=== PATIENT | male | born 1980 | race Caucasian/White ===

== ENCOUNTER 2016-08-27 10:11 | Emergency (ER) | payer MEDICARE, MEDICAID ==
--- NOTE | 2016-08-27 10:30 | ER Document Report ---
ED Medical Screen (RME) - General Chief Complaint: Headache Stated Complaint: BLOOD SUGAR PROBLEMS Time Seen by Provider: 08/27/16 10:19 Notes: The patient is a 36-year-old male, past medical history deafness, MR, seizures, DM, presents with his roommate after he was noticed to be pale and shaking. He is also having left groin pain. His sugar at home was 80. His roommate said that she will not interpret for him and that the patient cannot use Neisha. Unable to obtain any additional information. PE: pale skin, legs shaking, tachycardic I have greeted and performed a rapid initial assessment of this patient. A comprehensive ED assessment and evaluation of the patient, analysis of test results and completion of the medical decision making process will be conducted by additional ED providers. TRAVEL OUTSIDE OF THE [place] IN LAST 30 DAYS: No - Related Data Allergies/Adverse Reactions: ceftriaxone sodium [From Rocephin] Allergy (Unknown, Verified 08/27/16 10:18) haloperidol [From Haldol] Allergy (Verified 08/27/16 10:18) Past Medical History - Past Medical History Cardiac Medical History: Denies: Hx Coronary Artery Disease, Hx Heart Attack, Hx Hypertension Pulmonary Medical History: Denies: Hx Asthma, Hx Bronchitis, Hx COPD, Hx Pneumonia, Hx Tuberculosis Neurological Medical History: Denies: Hx Cerebrovascular Accident, Hx Seizures Renal/ Medical History: Denies: Hx Peritoneal Dialysis GI Medical History: Reports: Hx Gastroesophageal Reflux Disease Musculoskeltal Medical History: Reports Hx Arthritis - BEING EVALUATED Psychiatric Medical History: Reports: Hx Anxiety Past Surgical History: Denies: Hx Pacemaker - Immunizations Hx Diphtheria, Pertussis, Tetanus Vaccination: Yes Physical Exam - Vital signs Vitals: Temp Pulse Resp BP Pulse Ox 98.9 F 51 L 98 H 143/84 H 89 L 08/27/16 10:08/27/16 10:08/27/16 10:08/27/16 10:08/27/16 10:17 Course - Vital Signs Vital signs: Temp Pulse Resp BP Pulse Ox 98.9 F 51 L 98 H 143/84 H 89 L 08/27/16 10:08/27/16 10:08/27/16 10:08/27/16 10:08/27/16 10:17
[2016-08-27 10:46] LABS: ABSOLUTE LYMPHOCYTES (AUTO) 1.1 10^3/uL (0.5-4.7); ABSOLUTE MONOCYTES (AUTO) 0.2 10^3/uL (0.1-1.4); BASOPHILS % (AUTO) 0.4 % (0-2); EOSINOPHILS % (AUTO) 0.4 % (0-6); HEMATOCRIT 43.6 % (37.9-51.0); HGB HCT DIFFERENCE -1.6; LYMPHOCYTES % (AUTO) 12.6 % (13-45); MEAN CORPUSCULAR HEMOGLOBIN 30.8 pg (27.0-33.4); MEAN CORPUSCULAR VOLUME 96 fl (80-97); MONOCYTES % (AUTO) 2.9 % (3-13); RED BLOOD COUNT 4.53 10^6/uL (4.35-5.55); RED CELL DISTRIBUTION WIDTH 13.2 % (11.5-14.0); SEGMENTED NEUTROPHILS % (AUTO) 83.7 % (42-78); WHITE BLOOD COUNT 8.4 10^3/uL (4.0-10.5)
[2016-08-27 11:05] LABS: ALANINE AMINOTRANSFERASE 52 U/L (21-72); ALBUMIN 4.7 g/dL (3.5-5.0); ALKALINE PHOSPHATASE 49 U/L (38-126); ANION GAP 13 (5-19); ASPARTATE AMINO TRANSFERASE 37 U/L (17-59); BILIRUBIN,DIRECT 0.2 mg/dL (0.0-0.4); BILIRUBIN,TOTAL 0.4 mg/dL (0.2-1.3); BLOOD UREA NITROGEN 19 mg/dL (7-20); CALCIUM 9.6 mg/dL (8.4-10.2); CARBON DIOXIDE 26 mmol/L (22-30); CHLORIDE 106 mmol/L (98-107); CREATINE KINASE 67 U/L (55-170); CREATININE RESULT 0.72 mg/dL (0.52-1.25); GLUCOSE 102 mg/dL (75-110); LIPASE 113.8 U/L (23-300); POTASSIUM 4.4 mmol/L (3.6-5.0); SODIUM 144.6 mmol/L (137-145); TOTAL PROTEIN 8.1 g/dL (6.3-8.2)
[2016-08-27] MEDS ORDERED: NORMAL SALINE 1000 ML 1,000 ML IV PRN (11:05)
--- NOTE | 2016-08-27 11:12 | RADIOLOGY REPORT (SQ) ---
EXAM DESCRIPTION: CHEST PA/LAT COMPLETED DATE/TIME: 08/27/2016 11:03 am REASON FOR STUDY: SOB COMPARISON: 06/24/2014 EXAM PARAMETERS: NUMBER OF VIEWS: two views TECHNIQUE: Digital Frontal and Lateral radiographic views of the chest acquired. RADIATION DOSE: NA LIMITATIONS: none FINDINGS: LUNGS AND PLEURA: No opacities, masses or pneumothorax. No pleural effusion. MEDIASTINUM AND HILAR STRUCTURES: No masses or contour abnormalities. HEART AND VASCULAR STRUCTURES: Heart normal size. No evidence for failure. BONES: Stable scoliosis. HARDWARE: None in the chest. OTHER: No other significant finding. IMPRESSION: NO SIGNIFICANT RADIOGRAPHIC FINDING IN THE CHEST. TECHNICAL DOCUMENTATION: JOB ID: [id number] [employer]- All Rights Reserved
--- NOTE | 2016-08-27 11:23 | ER Document Report ---
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 family notes no fevers or chills, nausea or vomiting TRAVEL OUTSIDE OF THE [place] IN LAST 30 DAYS: No - HPI Onset: Yesterday Onset/Duration: Sudden Quality of pain: Achy Severity: Mild Pain Level: 1 Associated symptoms: None Exacerbated by: Denies Relieved by: Denies Similar symptoms previously: No Recently seen / treated by doctor: No - Related Data Allergies/Adverse Reactions: ceftriaxone sodium [From Rocephin] Allergy (Unknown, Verified 08/27/16 10:18) haloperidol [From Haldol] Allergy (Verified 08/27/16 10:18) Past Medical History - Social History Smoking Status: Never Smoker Cigarette use (# per day): No Chew tobacco use (# tins/day): No Smoking Education Provided: No Family History: Reviewed & Not Pertinent Patient has suicidal ideation: No Patient has homicidal ideation: No - Past Medical History Cardiac Medical History: Denies: Hx Coronary Artery Disease, Hx Heart Attack, Hx Hypertension Pulmonary Medical History: Denies: Hx Asthma, Hx Bronchitis, Hx COPD, Hx Pneumonia, Hx Tuberculosis Neurological Medical History: Denies: Hx Cerebrovascular Accident, Hx Seizures Renal/ Medical History: Denies: Hx Peritoneal Dialysis GI Medical History: Reports: Hx Gastroesophageal Reflux Disease Musculoskeltal Medical History: Reports Hx Arthritis - BEING EVALUATED Psychiatric Medical History: Reports: Hx Anxiety Past Surgical History: Denies: Hx Pacemaker - Immunizations Hx Diphtheria, Pertussis, Tetanus Vaccination: Yes Review of Systems - Review of Systems Notes: REVIEW OF SYSTEMS: CONSTITUTIONAL : Denies fever, chills, or sweats. Denies recent illness. EENT: Denies eye, ear, throat, or mouth pain or symptoms. Denies nasal or sinus congestion or discharge. Denies throat, tongue, or mouth swelling or difficulty swallowing. CARDIOVASCULAR: Denies chest pain. Denies palpitations or racing or irregular heart beat. Denies ankle edema. RESPIRATORY: Denies cough, cold, or chest congestion. Denies shortness of breath, difficulty breathing, or wheezing. GASTROINTESTINAL: Right flank pain GENITOURINARY: Denies difficulty urinating, painful urination, burning, frequency, blood in urine, or discharge. MUSCULOSKELETAL: Left thigh pain SKIN: Denies rash, lesions or sores. HEMATOLOGIC : Denies easy bruising or bleeding. LYMPHATIC: Denies swollen, enlarged glands. NEUROLOGICAL: Denies confusion or altered mental status. Denies passing out or loss of consciousness. Denies dizziness or lightheadedness. Denies headache. Denies weakness or paralysis or loss of use of either side. Denies problems with gait or speech. Denies sensory loss, numbness, or tingling. Denies seizures. PSYCHIATRIC: Denies anxiety or stress. Denies depression, suicidal ideation, or homicidal ideation. ALL OTHER SYSTEMS REVIEWED AND NEGATIVE. Dictation was performed using [employer] voice recognition software PHYSICAL EXAMINATION: GENERAL: pale HEAD: Atraumatic, normocephalic. EYES: Pupils equal round and reactive to light, extraocular movements intact, sclera anicteric, conjunctiva are normal. ENT: Nares patent, oropharynx clear without exudates. Moist mucous membranes. NECK: Normal range of motion, supple without lymphadenopathy LUNGS: Breath sounds clear to auscultation bilaterally and equal. No wheezes rales or rhonchi. HEART: tachycardic ABDOMEN: Soft, nontender, nondistended abdomen. No guarding, no rebound. No masses appreciated. Musculoskeletal: Normal range of motion, no pitting or edema. No cyanosis. NEUROLOGICAL: baseline PSYCH: Normal mood, normal affect. SKIN: Warm, Dry, normal turgor, no rashes or lesions noted. Physical Exam - Vital signs Vitals: Temp Pulse Resp BP Pulse Ox 98.9 F 127 H 20 143/84 H 98 08/27/16 10:17 08/27/16 10:17 08/27/16 10:17 08/27/16 10:17 08/27/16 10:17 Course - Re-evaluation Re-evalutation: 08/27/16 13:40 Physical examination lab work imaging no significant abnormality patient's heart rate has gone down from 130s-117 at rest, I believe the patient's tachycardia may be secondary to pain however Doppler CT imaging noted no abnormality patient does not have fever no white count. I did speak with the hospitalist he did not believe he meets admission criteria, I spoke in length with caregiver as well as patient about very strict return precautions and they state they understand and will return since at this time I do not find any life- threatening issues. Patient is chest pain-free has no shortness breath difficulty breathing no DVT no intra-abdominal source appendix is not visualized but he is nontender in the right lower quadrant After performing a Medical Screening Examination, I estimate there is LOW risk for ACUTE APPENDICITIS, BOWEL OBSTRUCTION, ACUTE CHOLECYSTITIS, PERFORATED DIVERTICULITIS, INCARCERATED HERNIA, PANCREATITIS, or PERFORATED ULCER, thus I consider the discharge disposition reasonable. Also, there is no evidence or peritonitis, sepsis, or toxicity. I have reevaluated this patient multiple times and no significant life threatening changes are noted. The patient and the caregiver and I have discussed the diagnosis and risks, and we agree with discharging home with close follow-up with the understanding that symptoms and presentations can change. We also discussed returning to the Emergency Department immediately if new or worsening symptoms occur. We have discussed the symptoms which are most concerning (e.g., bloody stool, fever, changing or worsening pain, intractable vomiting - standard verbal up date) that necessitate immediate return. - Vital Signs Vital signs: Temp Pulse Resp BP Pulse Ox 98.9 F 127 H 20 138/80 H 95 08/27/16 10:17 08/27/16 10:17 08/27/16 13:01 08/27/16 13:01 08/27/16 13:01 - Laboratory Result Diagrams: 08/27/16 10:20 08/27/16 10:20 Laboratory results interpreted by me: 08/27/16 10:20 Plt Count 138 L Seg Neutrophils % 83.7 H Lymphocytes % 12.6 L Monocytes % 2.9 L - Diagnostic Test Radiology reviewed: Image reviewed, Reports reviewed - EKG Interpretation by [facility] EKG shows normal: Sinus rhythm, Hammond, Intervals, QRS Complexes Discharge - Discharge Clinical Impression: Flank pain, Left thigh pain, Tachycardia Condition: Stable Disposition: HOME, SELF-CARE Instructions: Sinus Tachycardia ([facility]) Additional Instructions: There is no obvious source of infection at this time, please return immediately if symptoms worsen, if there is any fever, if there is any redness, chest pain, shortness of breath, or any other concerns Referrals: JOHN GOLDSMITH MD [Primary Care Provider] - Follow up tomorrow
--- NOTE | 2016-08-27 11:24 | EKG REPORT ---
SEVERITY:- ABNORMAL ECG - SINUS TACHYCARDIA LAD, CONSIDER LEFT ANTERIOR FASCICULAR BLOCK BORDERLINE T ABNORMALITIES, LATERAL LEADS : Confirmed by: Diane Pritchard 27-Aug-2016 11:24:04
[2016-08-27] MEDS ORDERED: MORPHINE SULFATE 10 MG/ML INJ IV ONE (11:25)
--- NOTE | 2016-08-27 12:19 | RADIOLOGY REPORT (SQ) ---
EXAM DESCRIPTION: CT ABD/PELVIS WITH IV ONLY COMPLETED DATE/TIME: 08/27/2016 11:53 am REASON FOR STUDY: right flank pain COMPARISON: None. TECHNIQUE: CT scan of the abdomen and pelvis performed using helical scanning technique with dynamic intravenous contrast injection. No oral contrast. Images reviewed with lung, soft tissue, and bone windows. Reconstructed coronal and sagittal MPR images reviewed. Delayed images for evaluation of the urinary system also acquired. All images stored on PACS. All CT scanners at this facility use dose modulation, iterative reconstruction, and/or weight based d osing when appropriate to reduce radiation dose to as low as reasonably achievable (ALARA). [facility]: Dose Right [facility]: CareDose [facility]: Dose Right [facility]: Teradose 4D [facility]: [employer] CONTRAST TYPE AND DOSE: contrast/concentration: Isovue 370.00 mg/ml; Total Contrast Delivered: 74.0 ml; Total Saline Delivered: 55.0 ml RENAL FUNCTION: GFR > 60. RADIATION DOSE: Up-to-date CT equipment and radiation dose reduction techniques were employed. CTDIv ol: 6.3 - 9.1 mGy. DLP: 784 mGy-cm.. LIMITATIONS: None. FINDINGS: LOWER CHEST: No significant findings. No nodules or infiltrates. LIVER: Normal size. No masses. No dilated ducts. SPLEEN: Normal size. No focal lesions. PANCREAS: No masses. No significant calcifications. No adjacent inflammation or peripancreatic fluid collections. Pancreatic duct not dilated. GALLBLADDER: Mildly distended. No stones. ADRENAL GLANDS: No significant masses or asymmetry. RIGHT KIDNEY AND URETER: No solid masses. No significant calcifications. No hydronephrosis or hyd roureter. LEFT KIDNEY AND URETER: No solid masses. No significant calcifications. No hydronephrosis or hydr oureter. AORTA AND VESSELS: No aneurysm. No dissection. Renal arteries, SMA, celiac without stenosis. RETROPERITONEUM: No retroperitoneal adenopathy, hemorrhage or masses. BOWEL AND PERITONEAL CAVITY: No masses or inflammatory changes. No free fluid or peritoneal masses. APPENDIX: Not visualized. PELVIS: No mass or free fluid. Normal bladder. ABDOMINAL WALL: No masses. No hernias. BONES: No significant or acute findings. OTHER: No other significant finding. IMPRESSION: NO SIGNIFICANT OR ACUTE FINDING IN THE ABDOMEN OR PELVIS ON CT SCAN WITH IV CONTRAST. TECHNICAL DOCUMENTATION: JOB ID: [id number] Quality ID # [id number]: Final reports with documentation of one or more dose reduction techniques (e.g., Au tomated exposure control, adjustment of the mA and/or kV according to patient size, use of iterative reconstruction technique) 2010 [employer]- All Rights Reserved
[2016-08-27 13:12] VITALS: BP 138/80
[2016-08-27 13:14] LABS: APPEARANCE,URINE CLEAR; BILIRUBIN,URINE NEGATIVE (NEGATIVE); GLUCOSE, URINE NEGATIVE (NEGATIVE); KETONES,URINE NEGATIVE (NEGATIVE); LEUKOCYTE ESTERASE,URINE NEGATIVE (NEGATIVE); NITRITE,URINE NEGATIVE (NEGATIVE); PROTEIN,URINE NEGATIVE (NEGATIVE); URINE SPECIFIC GRAVITY 1.019; UROBILINOGEN,URINE NEGATIVE mg/dL (<2.0)
--- NOTE | 2016-08-27 13:50 | RADIOLOGY REPORT (SQ) ---
EXAM DESCRIPTION: VENOUS UNILATERAL LOWER COMPLETED DATE/TIME: 08/27/2016 1:28 pm REASON FOR STUDY: left thighpain COMPARISON: None. TECHNIQUE: Dynamic and static evangelista scale and color images acquired of the left leg venous system. Se lected spectral images acquired with additional compression and augmentation maneuvers. The contralat eral common femoral vein and saphenofemoral junction were also imaged. Images stored on PACS. LIMITATIONS: None. FINDINGS: COMMON FEMORAL: Normal phasicity, compression and augmentation. No visualized echogenic ma terial on evangelista scale. No defects on color images. FEMORAL: Normal compression and augmentation. No visualized echogenic material on evangelista scale. No defe cts on color images. POPLITEAL: Normal compression, augmentation. No visualized echogenic material on evangelista scale. No defec ts on color images. CALF VESSELS: Normal compression, augmentation. No visualized echogenic material on evangelista scale. No de fects on color images. GSV and SSV: Normal compression, augmentation. No visualized echogenic material on evangelista scale. No def ects on color images. ANY DEEP VENOUS INSUFFICIENCY: Not evaluated. ANY EVIDENCE OF POPLITEAL CYST: No. OTHER: No other significant finding. CONTRALATERAL COMMON FEMORAL VEIN AND SAPHENOFEMORAL JUNCTION: Normal phasicity, compression and augmentation. No visualized echogenic material on evangelista scale. No de fects on color images. IMPRESSION: NO EVIDENCE DVT OR SVT IN THE LEFT LEG. COMMENT: This report was called to ISIS JASMINE DO at13:44 on 08/27/2016. TECHNICAL DOCUMENTATION: JOB ID: [id number]- All Rights Reserved
[2016-08-27 14:39] LABS: FREE T3 3.36 pg/mL (2.77-5.27)
--- NOTE | 2016-08-27 15:05 | RADIOLOGY REPORT (SQ) ---
EXAM DESCRIPTION: CTA CHEST COMPLETED DATE/TIME: 08/27/2016 2:51 pm REASON FOR STUDY: sob chest COMPARISON: Chest radiograph TECHNIQUE: CT scan of the chest performed using helical scanning technique with dynamic intravenous contrast injection. Images reviewed with lung, soft tissue and bone windows. Reconstructed coronal and sagittal MPR images reviewed. Additional 3 dimensional post-processing performed to develop Maximal Intensity Projection images ([place] P). All images stored on PACS. All CT scanners at this facility use dose modulation, iterative reconstruction, and/or weight based d osing when appropriate to reduce radiation dose to as low as reasonably achievable (ALARA). [facility]: Dose Right [facility]: CareDose [facility]: Dose Right [facility]: Teradose 4D [facility]: [employer] CONTRAST TYPE AND DOSE: contrast/concentration: Isovue 370.00 mg/ml; Total Contrast Delivered: 65.0 ml; Total Saline Delivered: 106.0 ml RENAL FUNCTION: GFR > 60. RADIATION DOSE: Up-to-date CT equipment and radiation dose reduction techniques were employed. CTDIv ol: 14.9 - 19.8 mGy. DLP: 558 mGy-cm. . LIMITATIONS: None. FINDINGS: LUNGS AND PLEURA: No masses, infiltrates, pneumothorax. No pleural effusions, calcificati ons. AORTA AND GREAT VESSELS: No aneurysm or dissection. HEART: No pericardial effusion. PULMONARY ARTERIES: No emboli visualized in the main pulmonary arteries or the segmental branches. HILAR AND MEDIASTINAL STRUCTURES: No identified masses or abnormal nodes. HARDWARE: None in the chest. UPPER ABDOMEN: No significant findings. Limited exam. THYROID AND OTHER SOFT TISSUES: No masses. No adenopathy. BONES: No acute or significant finding. 3D MIPS: Confirm above findings. OTHER: No other significant finding. IMPRESSION: NORMAL CTA OF THE CHEST. NO PULMONARY EMBOLI. TECHNICAL DOCUMENTATION: JOB ID: [id number] Quality ID # [id number]: Final reports with documentation of one or more dose reduction techniques (e.g., Au tomated exposure control, adjustment of the mA and/or kV according to patient size, use of iterative reconstruction technique) 2010 [employer]- All Rights Reserved
== END 2016-08-27 15:20 | disposition home or self-care (01) ==
LOC: ER 10:11
DX: R10.9 Unspecified abdominal pain (principal); R00.0 Tachycardia, unspecified; M79.652 Pain in left thigh; F80.2 Mixed receptive-expressive language disorder; F79 Unspecified intellectual disabilities; Z88.1 Allergy status to other antibiotic agents; Z88.8 Allergy status to other drugs, medicaments and biological substances
CPT/HCPCS: 93005; 99285; 96374; 36415; 84439; 82962; 82550; 83690; 84443; 85025; 80053; 81001; 84484; 84481; 83605; 93971; 71020; 71275; 74177; 93010; J2270; J7030

== ENCOUNTER 2016-08-28 15:18 | Observation (INO) | payer MEDICARE, MEDICAID ==
--- NOTE | 2016-08-28 16:26 | ER Document Report ---
ED Medical Screen (RME) - General Chief Complaint: Leg Pain Stated Complaint: LEFT LEG PAIN Time Seen by Provider: 08/28/16 16:18 Notes: Patient is a 36-year-old male, deaf, presents with 1 day of left lower leg redness and lower abdominal pain. He was seen in the emergency room yesterday and was noticed to be tachycardic. He had an ultrasound of his left lower leg which did not reveal a DVT, CTA which did not show a pulmonary embolism and blood work was unremarkable. He is not tachycardic today. When he woke up this morning, he noticed the redness. His roommate is here and serves as full time staff interpreter. PE: Mild erythema over left lower leg, B/L abdominal tenderness, good bowel sounds I have greeted and performed a rapid initial assessment of this patient. A comprehensive ED assessment and evaluation of the patient, analysis of test results and completion of the medical decision making process will be conducted by additional ED providers. TRAVEL OUTSIDE OF THE [place] IN LAST 30 DAYS: No - Related Data Allergies/Adverse Reactions: ceftriaxone sodium [From Rocephin] Allergy (Unknown, Verified 08/28/16 15:32) haloperidol [From Haldol] Allergy (Verified 08/28/16 15:32) Past Medical History - Past Medical History Cardiac Medical History: Denies: Hx Coronary Artery Disease, Hx Heart Attack, Hx Hypertension Pulmonary Medical History: Denies: Hx Asthma, Hx Bronchitis, Hx COPD, Hx Pneumonia, Hx Tuberculosis Neurological Medical History: Denies: Hx Cerebrovascular Accident, Hx Seizures Renal/ Medical History: Denies: Hx Peritoneal Dialysis GI Medical History: Reports: Hx Gastroesophageal Reflux Disease Musculoskeltal Medical History: Reports Hx Arthritis - BEING EVALUATED Psychiatric Medical History: Reports: Hx Anxiety Past Surgical History: Denies: Hx Pacemaker - Immunizations Hx Diphtheria, Pertussis, Tetanus Vaccination: Yes Physical Exam - Vital signs Vitals: Temp Pulse Resp BP Pulse Ox 97.5 F 89 20 108/51 L 100 08/28/16 15:32 08/28/16 15:32 08/28/16 15:32 08/28/16 15:32 08/28/16 15:32 Course - Vital Signs Vital signs: Temp Pulse Resp BP Pulse Ox 97.5 F 89 20 108/51 L 100 08/28/16 15:32 08/28/16 15:32 08/28/16 15:32 08/28/16 15:32 08/28/16 15:32
[2016-08-28 17:13] LABS: ABSOLUTE LYMPHOCYTES (AUTO) 1.4 10^3/uL (0.5-4.7); ABSOLUTE NEUT (AUTO) 11.5 10^3/uL (1.7-8.2); BASOPHILS % (AUTO) 0.2 % (0-2); EOSINOPHILS % (AUTO) 0.2 % (0-6); HEMATOCRIT 40.7 % (37.9-51.0); HEMOGLOBIN 13.3 g/dL (13.5-17.0); HGB HCT DIFFERENCE -0.8; LYMPHOCYTES % (AUTO) 9.7 % (13-45); MEAN CORPUSCULAR HEMOGLOBIN 30.8 pg (27.0-33.4); MEAN CORPUSCULAR HGB CONC 32.7 g/dL (32.0-36.0); MEAN CORPUSCULAR VOLUME 94 fl (80-97); MONOCYTES % (AUTO) 7.4 % (3-13); RED BLOOD COUNT 4.32 10^6/uL (4.35-5.55); RED CELL DISTRIBUTION WIDTH 13.5 % (11.5-14.0); SEGMENTED NEUTROPHILS % (AUTO) 82.5 % (42-78); WHITE BLOOD COUNT 13.9 10^3/uL (4.0-10.5)
[2016-08-28 17:14] LABS: ALANINE AMINOTRANSFERASE 45 U/L (21-72); ALBUMIN 4.3 g/dL (3.5-5.0); ALKALINE PHOSPHATASE 44 U/L (38-126); ANION GAP 10 (5-19); ASPARTATE AMINO TRANSFERASE 37 U/L (17-59); BILIRUBIN,DIRECT 0.2 mg/dL (0.0-0.4); BILIRUBIN,TOTAL 0.4 mg/dL (0.2-1.3); BLOOD UREA NITROGEN 13 mg/dL (7-20); CALCIUM 9.9 mg/dL (8.4-10.2); CARBON DIOXIDE 27 mmol/L (22-30); CHLORIDE 103 mmol/L (98-107); CREATINE KINASE 41 U/L (55-170); CREATININE RESULT 0.65 mg/dL (0.52-1.25); GLUCOSE 82 mg/dL (75-110); LIPASE 60.9 U/L (23-300); POTASSIUM 4.2 mmol/L (3.6-5.0); SODIUM 140.3 mmol/L (137-145); TOTAL PROTEIN 7.7 g/dL (6.3-8.2)
[2016-08-28] MEDS ORDERED: CLINDAMYCIN 600 MG/D5W RTU 50 ML IV ONE (17:24)
--- NOTE | 2016-08-28 17:24 | ER Document Report ---
ED Extremity Problem, Lower - General Mode of Arrival: Ambulatory Information source: Patient TRAVEL OUTSIDE OF THE [place] IN LAST 30 DAYS: No <MARTHA WU - Last Filed: 08/28/16 19:31> <REYNOLD STEWART - Last Filed: 08/28/16 19:37> - General Chief Complaint: Leg Pain Stated Complaint: LEFT LEG PAIN Time Seen by Provider: 08/28/16 16:18 Notes: 36 yo deaf male c/o red area to left leg today with pain and left sided abdominal pain, non diabetic. Seen in ER yesterday for low back pain, tachycardia. CT chest and abdomen, venous doppler ultrasound negative. No source of infection found. Woke up today c/o left medial ankle pain, red, and warm area. Spider bite 10 years ago to distal anterior left lower leg. No fever , nausea or vomiting. No headache. No hx MRSA. No chest pain or SOB. Still has some low back pain. Hx of tinea pedis, tenactin used. (MARTHA WU) - Related Data Allergies/Adverse Reactions: ceftriaxone sodium [From Rocephin] Allergy (Unknown, Verified 08/28/16 15:32) haloperidol [From Haldol] Allergy (Verified 08/28/16 15:32) Home Medications: Current Home Medications B Infantis/B Ani/B Charlie/B Bifid [Ra Probiotic Digestive Care] 1 tab PO Q12 [History] Clomipramine HCl [Anafranil 25 mg Capsule] 25 mg PO DAILY 08/28/16 [History] Clonidine HCl [Catapres 0.1 mg Tablet] 0.1 mg PO Q12 08/28/16 [History] Diazoxide [Proglycem 50 mg/ml Susp] 0.75 ml PO Q12 08/28/16 [History] Divalproex Sodium [Depakote ER 500 mg Tab.sr] 1,000 mg PO QHS 08/28/16 [History] Divalproex Sodium [Depakote ER 500 mg Tab.sr] 500 mg PO DAILY 08/28/16 [History] Hydrocodone/Acetaminophen [[place] 5-325 mg Tablet] 1 tab PO Q6HP PRN 08/28/16 [ History] Heath Carbonate [Heath Carbonate ER] 450 mg PO Q12 08/28/16 [History] Quetiapine Fumarate [Seroquel] 800 mg PO QHS 08/28/16 [History] Past Medical History - General Information source: 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 - Social History Smoking Status: Never Smoker Frequency of alcohol use: None Drug Abuse: None Lives with: Friend Family History: Reviewed & Not Pertinent Patient has suicidal ideation: No Patient has homicidal ideation: No Renal/ Medical History: Denies: Hx Peritoneal Dialysis GI Medical History: Reports: Hx Gastroesophageal Reflux Disease Musculoskeltal Medical History: Reports Hx Arthritis - BEING EVALUATED Psychiatric Medical History: Reports: Hx Anxiety Surgical Hx: Negative Past Surgical History: Denies: Hx Pacemaker - Immunizations Hx Diphtheria, Pertussis, Tetanus Vaccination: Yes <MARTHA WU - Last Filed: 08/28/16 19:31> Review of Systems - Review of Systems Constitutional: No symptoms reported EENT: No symptoms reported Cardiovascular: No symptoms reported Respiratory: No symptoms reported Gastrointestinal: No symptoms reported Genitourinary: No symptoms reported Male Genitourinary: No symptoms reported Musculoskeletal: See HPI Skin: No symptoms reported Hematologic/Lymphatic: No symptoms reported Neurological/Psychological: No symptoms reported <MARTHA WU - Last Filed: 08/28/16 19:31> Course - Laboratory Result Diagrams: 08/28/16 16:45 08/28/16 16:45 <MARTHA WU - Last Filed: 08/28/16 19:31> - Laboratory Result Diagrams: 08/28/16 16:45 08/28/16 16:45 <REYNOLD STEWART - Last Filed: 08/28/16 19:37> - Re-evaluation Re-evalutation: 08/28/16 18:[address] Stewart who examined the pt. states if the patient's mother is comfortable with the patient going to her house tonight with close follow-up, he can go home with oral antibiotics clindamycin 300 mg 3 times a day. I spoke with mother over the phone who comfortable monitoring him tonight because she will not have a signing person and he does not tell her when things get worse. So I will call Dr. Hendrickson for admission his PCP is Medhat Goldsmith. 08/28/16 19:31 Dr. Hendrickson will admit to telemetry observation, and he requests that the caregiver does not give him any home medications until he sees the patient. ( MARTHA WU) 08/28/16 19:35 I did personally seen and examined this patient in conjunction with Martha Wu the nurse practitioner, patient is right on the border of requiring admission versus being able to be discharged to home. His infection did progress quite rapidly and overnight he developed lymphangitic streaking all the way to his groin, after seeing and examining this patient and confirming the lymphangitic streaking going to the level of his left inguinal fold with associated lymphadenopathy I discussed with the patient who stated he was fairly resistant to be admitted that if it was acceptable to his caregiver I would be willing to do a trial of outpatient antibiotics with initial IV antibiotics here, his caregiver is concerned that he will not be honest if he is getting worse or developing fevers, given the unreliability of the patient and the caregiver patient will be admitted for IV antibiotics for this rapidly worsening cellulitis (REYNOLD STEWART) - Vital Signs Vital signs: Temp Pulse Resp BP Pulse Ox 97.5 F 89 21 H 104/90 H 97 08/28/16 15:32 08/28/16 15:32 08/28/16 19:01 08/28/16 19:01 08/28/16 19:01 - Laboratory Laboratory results interpreted by me: 08/28/16 08/28/16 08/28/16 16:45 16:45 16:45 WBC 13.9 H RBC 4.32 L Hgb 13.3 L Plt Count 132 L Seg Neutrophils % 82.5 H Lymphocytes % 9.7 L Absolute Neutrophils 11.5 H Lactic Acid Creatine Kinase 41 L Urine Ascorbic Acid 40 H 08/28/16 18:36 WBC RBC Hgb Plt Count Seg Neutrophils % Lymphocytes % Absolute Neutrophils Lactic Acid 2.3 H Creatine Kinase Urine Ascorbic Acid Discharge - Discharge Admitting Provider: Hospitalist Unit Admitted: Telemetry <MARTHA WU - Last Filed: 08/28/16 19:31> <REYNOLD STEWART - Last Filed: 08/28/16 19:37> - Discharge Clinical Impression: Left leg cellulitis, left leg lyphangitis Tinea pedis Qualifiers: Laterality: left Qualified Code(s): B35.3 - Tinea pedis Leukocytosis Qualifiers: Leukocytosis type: other Qualified Code(s): D72.828 - Other elevated white blood cell count Condition: Good Disposition: ADMITTED OBSERVATION Referrals: JOHN GOLDSMITH MD [Primary Care Provider] - Follow up as needed
[2016-08-28] MEDS ORDERED: NYSTATIN OINTMENT 15 GM TUBE TP ONE (17:27)
--- NOTE | 2016-08-28 17:58 | RADIOLOGY REPORT (SQ) ---
EXAM DESCRIPTION: ACUTE ABDOMEN SERIES COMPLETED DATE/TIME: 08/28/2016 5:47 pm REASON FOR STUDY: ruq abd tenderness COMPARISON: None. NUMBER OF VIEWS: Three views. TECHNIQUE: Frontal chest, supine abdomen and upright abdomen radiographic images acquired. LIMITATIONS: None. FINDINGS: CHEST: Lungs clear of infiltrates. FREE AIR: None. No abnormal gas collections. BOWEL GAS PATTERN: Nonobstructive pattern. No dilated loops or air fluid levels. CALCIFICATIONS: No suspicious calcifications. HARDWARE: None in the abdomen. SOFT TISSUES: No gross mass or suggestion of organomegaly. BONES: Levoscoliosis at the thoracolumbar junction. OTHER: No other significant finding. IMPRESSION: NO RADIOGRAPHIC EVIDENCE FOR ACUTE ABDOMINAL DISEASE. TECHNICAL DOCUMENTATION: JOB ID: [id number] [employer]- All Rights Reserved
[2016-08-28 18:20] LABS: AMORPHOUS SEDIMENT,URINE TRACE /HPF; APPEARANCE,URINE CLOUDY; BILIRUBIN,URINE NEGATIVE (NEGATIVE); GLUCOSE, URINE NEGATIVE (NEGATIVE); KETONES,URINE NEGATIVE (NEGATIVE); LEUKOCYTE ESTERASE,URINE NEGATIVE (NEGATIVE); NITRITE,URINE NEGATIVE (NEGATIVE); PROTEIN,URINE NEGATIVE (NEGATIVE); URINE SPECIFIC GRAVITY 1.008; UROBILINOGEN,URINE NEGATIVE mg/dL (<2.0)
[2016-08-28 19:40] LABS: ADD ON TESTING BLD IN LAB ACKNOWLEDGE
[2016-08-28 20:09] LABS: LITHIUM 0.7 mEq/L (0.6-1.2); MAGNESIUM 2.2 mg/dL (1.6-2.3)
[2016-08-28 20:14] LABS: VALPROIC ACID 78.7 ug/mL (50.0-120.0)
[2016-08-28] MEDS ORDERED: ACETAMINOPHEN 325 MG TABLET PO PRN (20:42)
[2016-08-28] MEDS ORDERED: MAG HYDROX/AL HYDROX/SIMETH SUSP 30 ML UDCUP PO PRN (20:42)
[2016-08-28] MEDS ORDERED: MAGNESIUM HYDROXIDE SUSP 30 ML UDCUP PO PRN (20:42)
[2016-08-28] MEDS ORDERED: VANCOMYCIN HCL 0 MG in DEXTROSE 5%-WATER 250 ML IV NR (20:45)
[2016-08-28] MEDS ORDERED: PROMETHAZINE HCL 25 MG TABLET PO PRN (20:45)
--- NOTE | 2016-08-28 21:27 | PDOC H&P ---
History of Present Illness Admission Date/PCP: 08/28/16 19:38 JOHN GOLDSMITH MD Patient complains of: REDNESS LEFT LEG History of Present Illness: CHAD FREY is a 36 year old male with underlying deafness, reported mental retardation, impulse control disorder, chronic constipation, chronic intermittent hypo-glycemia, with prior workup of same at [facility], mild anxiety and depression, without suicidal ideation, and suspected Raynaud's syndrome, who presents to the emergency room for evaluation of above complaint. Patient has been discussed with emergency room physician who evaluated the patient. Patient is able to provide no history whatsoever in terms of acute or chronic events, review of systems, personal habits, family history, etc. his female caregiver, and a female signer are present, with caregiver quite helpful and informative. Old inpatient records are reviewed. Was seen in the emergency room yesterday for low back pain, right flank pain, and tachycardia, with basically a negative fairly extensive workup, including chest x-ray, left lower extremity venous Doppler study, CT angiogram of chest, and CT of abdomen and pelvis. Woke up today complaining of left lower extremity pain, redness, and warmth. Mild nausea but no vomiting. Mild headache. No chest pain or shortness of breath. No history of MRSA. Currently being treated with Tinactin for tinea pedis on the left. Options given to caregiver and mother that patient be discharged home on oral antibiotics, but she was uncomfortable proceeding with this and hospitalist service was consulted. Still complaining of mild lower back discomfort, present for approximately 24 hours. Also mild abdominal discomfort. Chronic constipation. 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 Fairly extensive workup at [facility], with reportedly no specific cause found. History and physical and discharge summary reviewed. . Laboratory results are listed in [employer] and are reviewed. X-ray summary results are listed below, with full report(s) reviewed. . Social history/personal habits: Single. No children. Lives in an alternative family living situation, including female caregiver, who is present with him tonight. No use of alcohol tobacco or illicit drugs. Allergies/adverse reactions are listed in [employer] and are reviewed. No problems with penicillin. Of note, did develop a mild macular faintly erythematous chest and lower right neck rash after being given clindamycin in ER tonight. Caregiver states rash looks quite similar to that which he developed after receiving Rocephin. Clindamycin has been added to his allergy list. Home medications initially autopopulated into [employer] may not accurately reflect patient's true medications, dosages, and/or frequencies. field support technician has reconciled medications. Bottle review also undertaken with caregiver. REVIEW OF SYSTEMS: Constitutional: No fever or chills. Eyes: Wears glasses. ENT: Food intake with "lots of water;" caregiver states patient makes very little saliva. Deaf. Pulmonary: No current complaints. Cardiovascular: No current complaints, including chest pain. Gastrointestinal: See history and present illness. Skin: See history and present illness. Hematologic: Easy bruising. Neurologic: No current complaints, including numbness or tingling. Musculoskeletal: No current or chronic joint complaints, such as arthritis. Psychiatric: Anxiety and depression. Chronic impulse control. No suicidal ideation. Endocrine: No current complaints, including polyuria. Genitourinary: No current complaints, including dysuria. PHYSICAL EXAMINATION: 5 feet 10 inches tall. 72.6 kg. BMI 23 kg/m. Blood pressure 104/90. Pulse 96 and regular. 100% saturation on room air. Respirations are 20 and unlabored. Temperature 97.7. Thin otherwise well-developed male appearing approximately his stated age. Pleasant awake alert cooperative. Mildly anxious, without agitation. Skin is warm and dry. No subcutaneous nodules palpated. Fine macular faintly erythematous scattered rash over his anterior chest and right lower neck. See also comments under "extremities" below. ENT: Deaf. Tongue midline on protrusion pink and slightly tacky. Eyes: No scleral icterus. Pupils equal and reactive to light at 4 mm. [place] conjunctivae. Neck is supple and nontender to gentle active range of motion and palpation. Midline trachea. No palpable thyroid nodule mass enlargement or tenderness. Lymphatic: No palpable cervical or clavicular nodes. Neck and lymphatic exams limited by patient body habitus. Psychiatric: Cannot be adequately evaluated due to his current status. See history and present illness. Lungs: Auscultation reveals clear and equal breath sounds bilaterally. No use of accessory respiratory muscles. Cardiovascular: Heart regular rate and rhythm, without gallop murmur or rub. No carotid or abdominal aortic bruits. No ankle or pedal edema. Faintly palpable dorsalis pedis pulses. Abdomen:soft slightly distended with positive bowel sounds. Unable to adequately evaluate abdomen for masses or organomegaly due to distention. Scant lower abdominal discomfort to palpation, barely noticeable. Certainly no evidence of guarding or peritoneal signs. Extremities: Feet are warm and dry. No right calf tenderness to compression. No grossly obvious visual evidence of calf swelling. Gentle manipulation of lower extremities fails to reveal any obvious evidence of injury or instability to knees hips or ankles. Examination of the left lower extremity reveals mild tinea pedis, with small amount of clear mucoid discharge. No obvious evidence of immediate secondary infection involving toes per se. Well-healed somewhat oblong approximately 1.5 x 3 cm previous "spider bite" scar on his lower left caballero. Extending from the medial aspect of his foot superiorly and somewhat more anteriorly on his left lower leg, and medially superiorly on his left thigh is a somewhat narrow band of mild inflammation warmth and tenderness. No crepitus fluctuance or expressible discharge. Patient arises from a supine to seated position and then back without undue difficulty and with no obvious outward discomfort. Palpation of his lower back fails to reveal any obvious tenderness or discomfort; no inflammation of area of involvement. Neurologic: Moves upper extremities grossly normally. Patellar reflexes absent. Absent Babinski. Light touch cannot be adequately determined due to his current status. Dorsiflexion and plantarflexion of feet 5 / 5 and symmetric. Past Medical History Cardiac Medical History: Denies: Congestive Heart Failure, DVT, Myocardial Infarction, Hyperlipidema, Hypertension, Pulmonary Embolism Pulmonary Medical History: Denies: Asthma, Bronchitis, Chronic Obstructive Pulmonary Disease (COPD), Pneumonia, Sleep Apnea, Tuberculosis EENT Medical History: Reports: Eyes - Glasses, Ears - Deaf, Throat - Eats with "a lot" of water due to poor saliva production. Neurological Medical History: Denies: Hemorrhagic CVA, Ischemic CVA, Seizures Endocrine Medical History: Reports: Other - Chronic hypoglycemia Denies: Diabetes Mellitus Type 1, Diabetes Mellitus Type 2, Hyperthyroidism, Hypothyroidism Renal/ Medical History: Reports: None GI Medical History: Denies: Cirrhosis, Gastroesophageal Reflux Disease, Hepatitis, Peptic Ulcer Disease Musculoskeltal Medical History: Reports: Arthritis - BEING EVALUATED Skin Medical History: Reports: None Psychiatric Medical History: Reports: Depression, General Anxiety Disorder, Other - Impulse control disorder Denies: Alcohol Dependency, Substance Abuse, Tobacco Dependency Hematology: Reports: Other - Easy bruising Denies: Anemia Infectious Medical History: Denies: Clostridium Difficile, Hepatitis B, Hepatitis C, Methicillin- Resistant Staph Aureus Past Surgical History Past Surgical History: Reports: None Social History Information Source: Legal Guardian - Female caregiver, Emergency Med Personnel, [facility] Records Lives with: Friend, Other - Alternative family living situation with female caregiver Smoking Status: Never Smoker Frequency of Alcohol Use: None Hx Recreational Drug Use: No Drugs: None Hx Prescription Drug Abuse: No - Advance Directive Resuscitation Status: Full Code Surrogate healthcare decision maker:: Mother Family History Family History: Reviewed & Not Pertinent Parental Family History Reviewed: Yes - Mother with hypertension. Father ; alcohol and drug abuse Children Family History Reviewed: NA Sibling(s) Family History Reviewed.: Yes - Uncertain Medication/Allergy Home Medications: RX: B Infantis/B Ani/B Charlie/B Bifid [Ra Probiotic Digestive Care] 1 tab PO Q12 RX: Clomipramine HCl [Anafranil 25 mg Capsule] 25 mg PO DAILY 08/28/16 RX: Clonidine HCl [Catapres 0.1 mg Tablet] 0.1 mg PO Q12 08/28/16 RX: Diazoxide [Proglycem 50 mg/ml Susp] 0.75 ml PO Q12 08/28/16 RX: Divalproex Sodium [Depakote ER 500 mg Tab.sr] 1,000 mg PO QHS 08/28/16 RX: Divalproex Sodium [Depakote ER 500 mg Tab.sr] 500 mg PO DAILY 08/28/16 RX: Hydrocodone/Acetaminophen [[place] 5-325 mg Tablet] 1 tab PO Q6HP PRN RX: Zap Carbonate [Zap Carbonate ER] 450 mg PO Q12 08/28/16 RX: Quetiapine Fumarate [Seroquel] 800 mg PO QHS 08/28/16 Sulfamethoxazole/Trimethoprim [Bactrim Ds Tablet] 1 each PO BID #14 tablet 08/30 RX: Doxycycline Monohydrate 100 mg PO BID #14 capsule 08/31/16 Allergies/Adverse Reactions: ceftriaxone sodium [From Rocephin] Allergy (Mild, Verified 08/28/16 20:38) clindamycin Allergy (Mild, Verified 08/28/16 20:38) chest, neck rash haloperidol [From Haldol] Allergy (Verified 07/03/17 20:25) Generalized rash Physical Exam Vital Signs: Temp Pulse Resp BP Pulse Ox 97.5 F 89 21 H 104/90 H 97 08/28/16 15:32 08/28/16 15:32 08/28/16 19:01 08/28/16 19:01 08/28/16 19:01 Results Impressions: Acute Abdomen Series 08/28/16 17:25 IMPRESSION: NO RADIOGRAPHIC EVIDENCE FOR ACUTE ABDOMINAL DISEASE. Assessment & Plan - Diagnosis (1) Abdominal pain Qualifiers: Abdominal location: lower abdomen, unspecified Qualified Code(s): R10.30 - Lower abdominal pain, unspecified Is this a current diagnosis for this admission?: YesPlan: Scant discomfort on exam. Negative CT scan, August 27, 2016. Follow clinically. (2) DVT prophylaxis Is this a current diagnosis for this admission?: Yes (3) Left leg cellulitis Is this a current diagnosis for this admission?: YesPlan: Aztreonam and intravenous vancomycin. Pharmacy to assist with vancomycin dosing. I have strongly encouraged patient not to get out of bed without notifying staff , to avoid a fall with injury. Knee high SCD, right lower extremity only for DVT prophylaxis, along with subcutaneous Lovenox. Impression and plans were discussed with female caregiver, who concurs. She will be staying with him at all times, according to her. Time spent in evaluation and management of patient: 66 minutes. (4) Lower back pain Qualifiers: Chronicity: acute Back pain laterality: unspecified Sciatica presence: unspecified whether sciatica present Qualified Code(s): M54.5 - Low back pain Is this a current diagnosis for this admission?: YesPlan: Quite minimal. As needed pain medication. Follow clinically. (5) Deaf Qualifiers: Laterality: unspecified laterality Qualified Code(s): H91.90 - Unspecified hearing loss, unspecified ear Is this a current diagnosis for this admission?: Yes (6) Impulse control disorder Is this a current diagnosis for this admission?: YesPlan: Resume home medications as appropriate once these have been determined and reviewed. (7) Hypoglycemia Is this a current diagnosis for this admission?: YesPlan: Chronic problem for patient. Resume home medications as appropriate once these have been determined and reviewed. Nursing staff has also been instructed to discuss with caregiver patient's hypoglycemic protocol, along with dietary requirements. - Time Medications reviewed and adjusted accordingly: Yes Anticipated discharge: Home Within: within 24 hours
[2016-08-28] MEDS ORDERED: ENOXAPARIN SODIUM INJ 40 MG/0.4 ML DISP.SYRIN SUBCUT ONE (21:30)
[2016-08-28] MEDS ORDERED: LITHIUM CARBONATE 300 MG CAPSULE PO SCH (22:00)
[2016-08-28] MEDS ORDERED: DIAZOXIDE PO SCH (22:00)
[2016-08-28] MEDS ORDERED: (PENDING PHARMACY ID) (Quetiapine Fumarate [Seroquel] 800 MG) PO SCH (22:00)
[2016-08-28] MEDS ORDERED: QUETIAPINE FUMARATE 100 MG TABLET PO SCH (22:00)
[2016-08-28] MEDS ORDERED: DIAZOXIDE 50 MG/ML PO SCH (22:00)
[2016-08-28] MEDS ORDERED: LITHIUM CARBONATE 450 MG PO SCH ×2 (22:00)
[2016-08-28] MEDS ORDERED: AZTREONAM INJ 1 GM VIAL IV SCH (22:00)
[2016-08-28] MEDS: DIVALPROEX SODIUM 500 MG TAB.SR.24H PO SCH (22:57)
[2016-08-28] MEDS: CLONIDINE HCL 0.1 MG TABLET PO SCH (22:57)
[2016-08-28] MEDS ORDERED: DIAZOXIDE 50 MG/ML PO ONE (23:00)
[2016-08-28] MEDS: AZTREONAM 1 GM in DEXTROSE 5%-WATER 50 ML IV SCH (23:00)
[2016-08-29] MEDS: VANCOMYCIN HCL 1,500 MG in DEXTROSE 5%-WATER 250 ML IV SCH ×3 (03:15→17:36)
[2016-08-29 06:28] LABS: ABSOLUTE LYMPHOCYTES (AUTO) 1.8 10^3/uL (0.5-4.7); ABSOLUTE MONOCYTES (AUTO) 1.3 10^3/uL (0.1-1.4); ABSOLUTE NEUT (AUTO) 7.4 10^3/uL (1.7-8.2); BASOPHILS % (AUTO) 0.3 % (0-2); EOSINOPHILS % (AUTO) 0.3 % (0-6); HEMATOCRIT 37.9 % (37.9-51.0); HEMOGLOBIN 12.4 g/dL (13.5-17.0); HGB HCT DIFFERENCE -0.7; LYMPHOCYTES % (AUTO) 16.9 % (13-45); MEAN CORPUSCULAR HEMOGLOBIN 30.9 pg (27.0-33.4); MEAN CORPUSCULAR HGB CONC 32.7 g/dL (32.0-36.0); MEAN CORPUSCULAR VOLUME 94 fl (80-97); MONOCYTES % (AUTO) 12.2 % (3-13); RED BLOOD COUNT 4.02 10^6/uL (4.35-5.55); RED CELL DISTRIBUTION WIDTH 12.8 % (11.5-14.0); SEGMENTED NEUTROPHILS % (AUTO) 70.3 % (42-78); WHITE BLOOD COUNT 10.5 10^3/uL (4.0-10.5)
[2016-08-29] MEDS: AZTREONAM 1 GM in DEXTROSE 5%-WATER 50 ML IV SCH ×3 (06:35→21:30)
[2016-08-29] MEDS: DOCUSATE SODIUM 100 MG CAPSULE PO SCH ×2 (09:24→17:37)
[2016-08-29] MEDS: CLONIDINE HCL 0.1 MG TABLET PO SCH ×2 (09:25→21:25)
[2016-08-29] MEDS: DIVALPROEX SODIUM 500 MG TAB.SR.24H PO SCH ×2 (09:25→21:27)
[2016-08-29] MEDS: ENOXAPARIN SODIUM INJ 40 MG/0.4 ML DISP.SYRIN SUBCUT SCH (09:26)
[2016-08-29] MEDS: DIAZOXIDE 50 MG/ML PO SCH ×2 (09:28→21:39)
[2016-08-29] MEDS ORDERED: CLOMIPRAMINE HCL 25 MG PO SCH (10:00)
--- NOTE | 2016-08-29 12:25 | PDOC PROGRESS REPORT ---
Subjective Progress Note for:: 08/29/16 Subjective:: Denies any complaints. There is a design supervisor at the bedside. Physical Exam Vital Signs: Temp Pulse Resp BP Pulse Ox 97.5 F 93 14 113/69 100 08/29/16 07:45 08/29/16 07:45 08/29/16 07:45 08/29/16 07:45 08/29/16 07:45 Intake & Output 08/28/16 08/29/16 08/30/16 06:59 06:59 06:59 Intake Total 200 Balance 200 Weight 70.4 kg General appearance: PRESENT: no acute distress Eye exam: PRESENT: conjunctiva pink. ABSENT: scleral icterus Mouth exam: PRESENT: moist, tongue midline Neck exam: ABSENT: JVD Respiratory exam: PRESENT: clear to auscultation willard. ABSENT: rales, rhonchi, wheezes Cardiovascular exam: PRESENT: RRR. ABSENT: diastolic murmur, rubs, systolic murmur GI/Abdominal exam: PRESENT: normal bowel sounds, soft. ABSENT: distended, guarding, mass, organolmegaly, rebound, tenderness Extremities exam: ABSENT: calf tenderness, clubbing, pedal edema Neurological exam: PRESENT: other - Patient is deaf Psychiatric exam: PRESENT: appropriate affect Skin exam: PRESENT: other - The erythema on the leg is reduced from the outline marked with pen. Results Laboratory Results: 08/29/16 06:20 08/28/16 08/29/16 23:05 06:20 WBC 10.5 RBC 4.02 L Hgb 12.4 L Hct 37.9 MCV 94 MCH 30.9 MCHC 32.7 RDW 12.8 Plt Count 128 L Seg Neutrophils % 70.3 Lymphocytes % 16.9 Monocytes % 12.2 Eosinophils % 0.3 Basophils % 0.3 Absolute Neutrophils 7.4 Absolute Lymphocytes 1.8 Absolute Monocytes 1.3 Absolute Eosinophils 0.0 Absolute Basophils 0.0 Lactic Acid 1.0 Impressions: Acute Abdomen Series 08/28/16 17:25 IMPRESSION: NO RADIOGRAPHIC EVIDENCE FOR ACUTE ABDOMINAL DISEASE. Assessment & Plan - Diagnosis (1) Left leg cellulitis Is this a current diagnosis for this admission?: YesPlan: clinically has improved. There is much less erythema. We will continue the IV antibiotics tonight and hopefully switch over to oral antibiotics and discharge home tomorrow (2) Deaf Qualifiers: Laterality: unspecified laterality Qualified Code(s): H91.90 - Unspecified hearing loss, unspecified ear Is this a current diagnosis for this admission?: YesPlan: Has an school adjustment counselor at the bedside (3) Abdominal pain Qualifiers: Abdominal location: lower abdomen, unspecified Qualified Code(s): R10.30 - Lower abdominal pain, unspecified Is this a current diagnosis for this admission?: YesPlan: Resolved (4) Hypoglycemia Is this a current diagnosis for this admission?: YesPlan: Continue with the hypoglycemic protocol (5) Lower back pain Qualifiers: Chronicity: acute Back pain laterality: unspecified Sciatica presence: unspecified whether sciatica present Qualified Code(s): M54.5 - Low back pain Is this a current diagnosis for this admission?: Yes (6) Impulse control disorder Is this a current diagnosis for this admission?: Yes - Time Time Spent with patient: 25-34 minutes - Inpatient Certification Medical Necessity: Need for IV Antibiotics
[2016-08-29] MEDS ORDERED: QUETIAPINE FUMARATE 100 MG TABLET PO SCH (22:00)
[2016-08-30] MEDS: VANCOMYCIN HCL 1,500 MG in DEXTROSE 5%-WATER 250 ML IV SCH ×2 (02:40→10:29)
[2016-08-30] MEDS: AZTREONAM 1 GM in DEXTROSE 5%-WATER 50 ML IV SCH (06:24)
[2016-08-30 06:32] LABS: ABSOLUTE EOSINOPHILS # (AUTO) 0.1 10^3/uL (0.0-0.6); ABSOLUTE LYMPHOCYTES (AUTO) 1.9 10^3/uL (0.5-4.7); ABSOLUTE MONOCYTES (AUTO) 0.7 10^3/uL (0.1-1.4); ABSOLUTE NEUT (AUTO) 2.9 10^3/uL (1.7-8.2); BASOPHILS % (AUTO) 0.5 % (0-2); EOSINOPHILS % (AUTO) 1.8 % (0-6); HEMATOCRIT 37.2 % (37.9-51.0); HEMOGLOBIN 12.4 g/dL (13.5-17.0); LYMPHOCYTES % (AUTO) 33.7 % (13-45); MEAN CORPUSCULAR HEMOGLOBIN 31.3 pg (27.0-33.4); MEAN CORPUSCULAR HGB CONC 33.4 g/dL (32.0-36.0); MEAN CORPUSCULAR VOLUME 94 fl (80-97); MONOCYTES % (AUTO) 12.4 % (3-13); RED BLOOD COUNT 3.97 10^6/uL (4.35-5.55); RED CELL DISTRIBUTION WIDTH 12.9 % (11.5-14.0); SEGMENTED NEUTROPHILS % (AUTO) 51.6 % (42-78); WHITE BLOOD COUNT 5.6 10^3/uL (4.0-10.5)
[2016-08-30 06:51] LABS: ANION GAP 11 (5-19); BLOOD UREA NITROGEN 12 mg/dL (7-20); CALCIUM 8.8 mg/dL (8.4-10.2); CARBON DIOXIDE 23 mmol/L (22-30); CHLORIDE 107 mmol/L (98-107); CREATININE RESULT 0.61 mg/dL (0.52-1.25); GLUCOSE 69 mg/dL (75-110); POTASSIUM 3.9 mmol/L (3.6-5.0); SODIUM 140.9 mmol/L (137-145)
[2016-08-30 09:48] VITALS: BP 116/72
[2016-08-30] MEDS: ENOXAPARIN SODIUM INJ 40 MG/0.4 ML DISP.SYRIN SUBCUT SCH (10:00)
[2016-08-30] MEDS: DOCUSATE SODIUM 100 MG CAPSULE PO SCH (10:01)
[2016-08-30] MEDS: CLONIDINE HCL 0.1 MG TABLET PO SCH (10:01)
[2016-08-30] MEDS: DIVALPROEX SODIUM 500 MG TAB.SR.24H PO SCH (10:02)
[2016-08-30] MEDS: DIAZOXIDE 50 MG/ML PO SCH (10:03)
--- NOTE | 2016-08-30 14:52 | PDOC DISCHARGE SUMMARY ---
General - Admit/Disc Date/PCP Admission Date/Primary Care Provider: 08/28/16 20:42 JOHN GOLDSMITH MD Discharge Date: 08/30/16 - Discharge Diagnosis (1) Left leg cellulitis Is this a current diagnosis for this admission?: YesSummary: Negative cultures. Has responded well (2) Deaf Is this a current diagnosis for this admission?: Yes (3) Abdominal pain Is this a current diagnosis for this admission?: YesSummary: Resolved. Uncertain etiology (4) Hypoglycemia Is this a current diagnosis for this admission?: Yes (5) Lower back pain Is this a current diagnosis for this admission?: Yes (6) Impulse control disorder Is this a current diagnosis for this admission?: Yes - Additional Information Resuscitation Status: Full Code Discharge Diet: Regular Discharge Activity: Activity As Tolerated Home Medications: B Infantis/B Ani/B Charlie/B Bifid [Ra Probiotic Digestive Care] 1 tab PO Q12 Clomipramine HCl [Anafranil 25 mg Capsule] 25 mg PO DAILY 08/28/16 Clonidine HCl [Catapres 0.1 mg Tablet] 0.1 mg PO Q12 08/28/16 Diazoxide [Proglycem 50 mg/ml Susp] 0.75 ml PO Q12 08/28/16 Divalproex Sodium [Depakote ER 500 mg Tab.sr] 1,000 mg PO QHS 08/28/16 Divalproex Sodium [Depakote ER 500 mg Tab.sr] 500 mg PO DAILY 08/28/16 Hydrocodone/Acetaminophen [Energy 5-325 mg Tablet] 1 tab PO Q6HP PRN 08/28/16 [place] Carbonate [[place] Carbonate ER] 450 mg PO Q12 08/28/16 Quetiapine Fumarate [Seroquel] 800 mg PO QHS 08/28/16 Sulfamethoxazole/Trimethoprim [Bactrim Ds Tablet] 1 each PO BID #14 tablet 08/30 History of Present Illness History of Present Illness: CHAD FREY is a 36 year old male with deafness and mental retardation who presented with erythema and swelling of the left leg consistent with acute cellulitis. Patient had been getting treatment for tinea pedis. The patient had negative left lower extremity venous Doppler studies. Hospital Course Hospital Course: 36-year-old male who was admitted with cellulitis of the leg. He was started on vancomycin and aztreonam. He had quick resolution of all the erythema. He had a venous Doppler which was negative for any DVT. Patient also presented with some abdominal pain and had a CT of the abdomen that was negative. The patient is being sent home with Bactrim orally. All of his cultures were negative. Physical Exam Vital Signs: Temp Pulse Resp BP Pulse Ox 97.8 F 79 12 132/80 H 100 08/30/16 09:26 08/30/16 09:26 08/30/16 09:26 08/30/16 09:26 08/30/16 09:26 Intake & Output 08/29/16 08/30/16 08/31/16 06:59 06:59 06:59 Intake Total 200 1650 Balance 200 1650 Weight 70.4 kg 74.1 kg General appearance: PRESENT: no acute distress Eye exam: PRESENT: conjunctiva pink. ABSENT: scleral icterus Mouth exam: PRESENT: moist, tongue midline Neck exam: ABSENT: JVD Respiratory exam: PRESENT: clear to auscultation willard. ABSENT: rales, rhonchi, wheezes Cardiovascular exam: PRESENT: RRR. ABSENT: diastolic murmur, rubs, systolic murmur GI/Abdominal exam: PRESENT: normal bowel sounds, soft. ABSENT: distended, guarding, mass, organolmegaly, rebound, tenderness Extremities exam: ABSENT: calf tenderness, clubbing, pedal edema Neurological exam: PRESENT: alert, awake, oriented to person, oriented to place , oriented to time, oriented to situation, other - Is deaf Psychiatric exam: PRESENT: appropriate affect Skin exam: PRESENT: dry, intact, warm. ABSENT: cyanosis, rash Results Laboratory Results: 08/30/16 06:04 08/30/16 06:04 08/30/16 08/30/16 06:04 06:04 WBC 5.6 RBC 3.97 L Hgb 12.4 L Hct 37.2 L MCV 94 MCH 31.3 MCHC 33.4 RDW 12.9 Plt Count 125 L Seg Neutrophils % 51.6 Lymphocytes % 33.7 Monocytes % 12.4 Eosinophils % 1.8 Basophils % 0.5 Absolute Neutrophils 2.9 Absolute Lymphocytes 1.9 Absolute Monocytes 0.7 Absolute Eosinophils 0.1 Absolute Basophils 0.0 Sodium 140.9 Potassium 3.9 Chloride 107 Carbon Dioxide 23 Anion Gap 11 BUN 12 Creatinine 0.61 Est GFR ( Amer) > 60 Est GFR (Non-Af Amer) > 60 Glucose 69 L Calcium 8.8 Impressions: Acute Abdomen Series 08/28/16 17:25 IMPRESSION: NO RADIOGRAPHIC EVIDENCE FOR ACUTE ABDOMINAL DISEASE. Qualifiers PATEINT BEING DISCHARGED WITH ANY OF THE FOLLOWING DIAGNOSIS?: No Plan Discharge Plan: Transferred back to his assisted living facility. Will follow up with primary care doctor in 1-2 weeks. Time Spent: Less than 30 Minutes
== END 2016-08-30 10:05 | disposition home or self-care (01) ==
LOC: ER 15:18 → EH 19:38 → UNDOADMOB 19:38 → EH 20:42 → 4S 21:16
PROVIDERS: ADMIT Family Medicine; ATTEND Family Medicine
DX: L03.116 Cellulitis of left lower limb (principal); H91.90 Unspecified hearing loss, unspecified ear; R10.30 Lower abdominal pain, unspecified; M54.5 Low back pain; F63.9 Impulse disorder, unspecified; F79 Unspecified intellectual disabilities; K59.09 Other constipation; E16.1 Other hypoglycemia; F41.1 Generalized anxiety disorder; F32.9 Major depressive disorder, single episode, unspecified; L27.0 Generalized skin eruption due to drugs and medicaments taken internally; T36.8X5A Adverse effect of other systemic antibiotics, initial encounter; B35.3 Tinea pedis; R00.0 Tachycardia, unspecified; D72.828 Other elevated white blood cell count; Z79.899 Other long term (current) drug therapy; Z82.49 Family history of ischemic heart disease and other diseases of the circulatory system; Z88.1 Allergy status to other antibiotic agents; Z88.8 Allergy status to other drugs, medicaments and biological substances
CPT/HCPCS: 99283; 99284; 96375; 96365 ×2; 96366; 96367; 36415 ×3; 87040; 82962 ×3; 82550; 83690; 80178; 83735; 84550; 85025 ×3; 80048; 80053; 81001 ×2; 80164; 83605; 74022; G0378 ×3; A9270 ×10; J1650 ×2; J3490 ×7; J7060 ×2; J3370 ×2; J1610; J2405

== ENCOUNTER 2016-08-30 20:49 | Emergency (ER) | payer MEDICARE, MEDICAID ==
[2016-08-30 23:11] LABS: ABSOLUTE EOSINOPHILS # (AUTO) 0.1 10^3/uL (0.0-0.6); ABSOLUTE LYMPHOCYTES (AUTO) 2.1 10^3/uL (0.5-4.7); ABSOLUTE MONOCYTES (AUTO) 0.6 10^3/uL (0.1-1.4); BASOPHILS % (AUTO) 0.5 % (0-2); EOSINOPHILS % (AUTO) 1.3 % (0-6); HEMOGLOBIN 12.9 g/dL (13.5-17.0); HGB HCT DIFFERENCE -1.3; LYMPHOCYTES % (AUTO) 36.3 % (13-45); MEAN CORPUSCULAR HEMOGLOBIN 30.6 pg (27.0-33.4); MEAN CORPUSCULAR HGB CONC 32.2 g/dL (32.0-36.0); MEAN CORPUSCULAR VOLUME 95 fl (80-97); MONOCYTES % (AUTO) 10.3 % (3-13); SEGMENTED NEUTROPHILS % (AUTO) 51.6 % (42-78); WHITE BLOOD COUNT 5.8 10^3/uL (4.0-10.5)
[2016-08-30 23:21] LABS: APPEARANCE,URINE CLEAR; BILIRUBIN,URINE NEGATIVE (NEGATIVE); GLUCOSE, URINE NEGATIVE (NEGATIVE); KETONES,URINE NEGATIVE (NEGATIVE); LEUKOCYTE ESTERASE,URINE NEGATIVE (NEGATIVE); NITRITE,URINE NEGATIVE (NEGATIVE); PROTEIN,URINE NEGATIVE (NEGATIVE); URINE SPECIFIC GRAVITY 1.003; UROBILINOGEN,URINE NEGATIVE mg/dL (<2.0)
[2016-08-30 23:24] LABS: ANION GAP 10 (5-19); BLOOD UREA NITROGEN 14 mg/dL (7-20); CALCIUM 9.7 mg/dL (8.4-10.2); CARBON DIOXIDE 26 mmol/L (22-30); CHLORIDE 104 mmol/L (98-107); CREATININE RESULT 0.56 mg/dL (0.52-1.25); GLUCOSE 76 mg/dL (75-110); POTASSIUM 3.9 mmol/L (3.6-5.0); SODIUM 140.1 mmol/L (137-145); URIC ACID 4.5 mg/dL (3.5-8.5)
[2016-08-31] MEDS ORDERED: GLUCAGON,HUMAN RECOMB 1 MG INJ SUBCUT ONE (01:54)
--- NOTE | 2016-08-31 02:10 | ER Document Report ---
ED Extremity Problem, Lower <SHAHEEN SCHROEDER - Last Filed: 08/31/16 02:14> - General Mode of Arrival: Ambulatory Information source: Patient, Relative TRAVEL OUTSIDE OF THE [place] IN LAST 30 DAYS: No - HPI Patient complains to provider of: Pain, Swelling Location: Leg Occurred: Other - See HPI Onset/Duration: Intermittent Quality of pain: Sharp Severity: Severe Pain Level: 5 Context: Other - Related to right leg Recent injury: No Associated symptoms: Painful ambulation Exacerbated by: Movement, Walking Relieved by: Nothing <SATURNINO MONREAL - Last Filed: 08/31/16 05:43> - General Chief Complaint: Leg Swelling Stated Complaint: LEG PAIN Time Seen by Provider: 08/31/16 00:57 Notes: 36-year-old male presents to ED for pain and redness to his left lower leg. Caregiver states that they were came in on the second and were admitted for cellulitis of the right lower leg and groin. He was admitted and given IV antibiotics on August 30 at which time they were discharged around 10 AM and started on Bactrim he received 1 dose of Bactrim. At 8 PM tonight the redness returned to his leg and they were told that the redness came back that they would return to the ED. Caregiver states that they never did find a reason for the cellulitis it was just red and infected. (SATURNINO MONREAL) - Related Data Allergies/Adverse Reactions: ceftriaxone sodium [From Rocephin] Allergy (Mild, Verified 08/28/16 20:38) clindamycin Allergy (Mild, Verified 08/28/16 20:38) chest, neck rash haloperidol [From Haldol] Allergy (Verified 08/28/16 20:25) Generalized rash Past Medical History - General Information source: Patient - Caregiver - Social History Smoking Status: Never Smoker Cigarette use (# per day): No Chew tobacco use (# tins/day): No Smoking Education Provided: No Frequency of alcohol use: None Drug Abuse: None Lives with: Other - Given Family History: Reviewed & Not Pertinent Patient has suicidal ideation: No Patient has homicidal ideation: No - Past Medical History Cardiac Medical History: Reports: None Pulmonary Medical History: Reports: None EENT Medical History: Reports: None Neurological Medical History: Reports: None Endocrine Medical History: 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 Renal/ Medical History: Reports: None Malignancy Medical History: Reports None GI Medical History: Reports: None Musculoskeltal Medical History: Reports Hx Arthritis - BEING EVALUATED Skin Medical History: Reports None Psychiatric Medical History: Reports: Hx Anxiety, Hx Depression Traumatic Medical History: Reports: None Infectious Medical History: Reports: None Surgical Hx: Negative - Immunizations Hx Diphtheria, Pertussis, Tetanus Vaccination: Yes <SATURNINO MONREAL Last Filed: 08/31/16 05:43> Review of Systems - Review of Systems Constitutional: No symptoms reported EENT: No symptoms reported Cardiovascular: No symptoms reported Respiratory: No symptoms reported Gastrointestinal: No symptoms reported Genitourinary: No symptoms reported Male Genitourinary: No symptoms reported Musculoskeletal: No symptoms reported Skin: Other - Erythema and pain to the left lower leg Hematologic/Lymphatic: No symptoms reported Neurological/Psychological: No symptoms reported -: Yes All other systems reviewed and negative <SATURNINO MONREAL Last Filed: 08/31/16 05:43> Physical Exam - Vital signs Interpretation: Normal - General General appearance: Appears well, Alert - HEENT Head: Normocephalic, Atraumatic Eyes: Normal Pupils: PERRL - Respiratory Respiratory status: No respiratory distress Chest status: Nontender Breath sounds: Normal Chest palpation: Normal - Cardiovascular Rhythm: Regular Heart sounds: Normal auscultation Murmur: No - Abdominal Inspection: Normal Distension: No distension Bowel sounds: Normal Tenderness: Nontender Organomegaly: No organomegaly - Back Back: Normal, Nontender - Extremities General upper extremity: Normal inspection, Nontender, Normal color, Normal ROM , Normal temperature General lower extremity: Normal ROM, Normal temperature, Normal weight bearing. No: Pedro's sign Calf: Tender - left lower leg, Other - left lower leg ERYTHEMA - Neurological Neuro grossly intact: Yes Cognition: Normal Orientation: AAOx4 Pj Coma Scale Eye Opening: Spontaneous Pj Coma Scale Verbal: Oriented Pj Coma Scale Motor: Obeys Commands Pj Coma Scale Total: 15 Speech: Normal Motor strength normal: LUE, RUE, LLE, RLE Sensory: Normal - Psychological Associated symptoms: Normal affect, Normal mood - Skin Skin Temperature: Warm Skin Moisture: Dry Skin Color: Normal <SATURNINO MONREAL Filed: 08/31/16 05:43> - Vital signs Vitals: Temp Pulse Resp BP Pulse Ox 97.6 F 89 21 H 124/74 99 08/30/16 21:18 08/30/16 21:18 08/30/16 21:18 08/30/16 21:18 08/30/16 21:18 Course - Laboratory Result Diagrams: 08/30/16 22:10 08/30/16 22:10 <SHAHEEN SCHROEDER - Last Filed: 08/31/16 02:14> - Laboratory Result Diagrams: 08/30/16 22:10 08/30/16 22:10 <SATURNINO MONREAL - Last Filed: 08/31/16 05:43> - Re-evaluation Re-evalutation: 08/31/16 02:15 Patient was initially evaluated by nurse practitioner. Patient is a pleasant 36 -year-old male who was admitted to the hospital for cellulitis. He was given aztreonam as well as vancomycin. Redness completely went away. He was discharged home on Bactrim. After coming home the redness has returned. He also has some hypoglycemia. He is been given food and is awake and alert and acting appropriately. I suspect that he may have some streptococcal infection that is leading to the recurrent cellulitis being that the symptoms returned when being placed just on Bactrim. I will give him a dose of Rocephin as well as vancomycin here. We will discharge him home on clindamycin to take in conjunction with the Bactrim. I did the patient's margarine maker who is very agreeable to the plan. Patient has no leukocytosis and no fever and looks very well. I informed her that if he does have worsening swelling or redness and must return. Golf Range Attendant agrees with plan the patient most likely be discharged home after receiving IV antibiotics. Dictation of this chart was performed using voice recognition software; therefore, there may be some unintended grammatical errors. (SHAHEEN SCHROEDER) 08/31/16 05:42 Monitor blood sugar throughout the night. I have picking how much sugar came up from and then had some chicken and sugars are up to 85 antibiotics are completed will sent home on doxycycline and he is to continue his Bactrim and follow-up with his primary doctor. (SATURNINO MONREAL) - Vital Signs Vital signs: Temp Pulse Resp BP Pulse Ox 97.6 F 89 21 H 124/74 99 08/30/16 21:18 08/30/16 21:18 08/30/16 21:18 08/30/16 21:18 08/30/16 21:18 - Laboratory Laboratory results interpreted by me: 08/30/16 08/31/16 08/31/16 22:10 01:18 04:01 RBC 4.20 L Hgb 12.9 L POC Glucose 45 L 69 L Discharge <SCHROEDERYESENIASHAHEEN - Last Filed: 08/31/16 02:14> <SATURNINO MONREAL - Last Filed: 08/31/16 05:43> - Discharge Clinical Impression: Left leg cellulitis Condition: Stable Disposition: HOME, SELF-CARE Additional Instructions: CELLULITIS: You have an infection of your skin and underlying soft tissues called cellulitis. This is due to bacteria, which can enter through any break in the skin, or even through an irritated hair follicle. Untreated, cellulitis will usually worsen. Antibiotics are required. Usually, warm packs or warm soaks, and elevation of the infected area are recommended. You should start getting better within 24 to 36 hours. Most infections respond quickly to the right medication. Follow-up care is important, however, to check for abscess (boil) formation, unsuspected foreign body, or resistant infection. If you develop fever, chills, or if the area of infection is becoming rapidly more swollen or painful, call the doctor at once. TRIMETHOPRIM-SULFA: You have been given a prescription for trimethoprim-sulfa (TMS, Septra, Bactrim). This is a combination antibiotic of the sulfa class, often used for urinary tract infections, middle ear infections, bronchitis, shigella intestinal infection, and Pneumocystis pneumonia. TMS is usually well-tolerated. Occasional side effects include nausea and decreased appetite. Septra is not recommended for infants less than two months of age. Do not take this medication if you have experienced severe side effects or allergy to sulfa medicine. You should stop this medicine at once and contact your physician if you develop any rash, joint pain, shortness of breath, bruising, or jaundice ( yellow color in the skin), or if you develop any other new or unusual symptoms. DOXYCYCLINE: Doxycycline (Vibramycin, Doryx) is an antibiotic of the tetracycline family. This type of drug is useful for infections of the respiratory tract and genital tract, and is sometimes used for intestinal infections. Unlike most tetracyclines, doxycycline can be taken with food. It is longer acting, and (usually) less prone to side effects than regular tetracycline. Tetracycline antibiotics can stain immature teeth and SHOULD NOT BE TAKEN BY CHILDREN, NURSING MOTHERS, OR WOMEN. Tetracyclines can make you more prone to sunburn. Abdominal cramping, nausea, and diarrhea are occasional side effects. Women may experience vaginal yeast infections. Call the doctor at once if you develop hives, itching, shortness of breath , or lightheadedness. FOLLOW-UP CARE: If you have been referred to a physician for follow-up care, call the physician s office for an appointment as you were instructed or within the next two days. If you experience worsening or a significant change in your symptoms, notify the physician immediately or return to the Emergency Department at any time for re-evaluation. Prescriptions: Doxycycline Monohydrate 100 mg PO BID #14 capsule
[2016-08-31] MEDS ORDERED: CEFTRIAXONE RTU 1 GM/D5W 50 ML IV ONE (02:15)
[2016-08-31] MEDS ORDERED: AZTREONAM INJ 1 GM VIAL IV ONE (02:16)
[2016-08-31] MEDS ORDERED: VANCOMYCIN HCL INJ 1000 MG VIAL IV ONE (02:16)
[2016-08-31] MEDS ORDERED: VANCOMYCIN HCL INJ 1000 MG VIAL ONE (02:22)
[2016-08-31] MEDS ORDERED: DEXTROSE 50%-WATER 25 GM/50 ML DISP.SYRIN IV ONE ×2 (03:21→03:23)
[2016-08-31] MEDS ORDERED: ONDANSETRON HCL INJ/PF 4 MG/2 ML SDV ONE (03:29)
[2016-08-31 06:01] VITALS: BP 122/74
== END 2016-08-31 05:49 | disposition home or self-care (01) ==
LOC: ER 20:49
DX: L03.116 Cellulitis of left lower limb (principal); E16.2 Hypoglycemia, unspecified; R10.9 Unspecified abdominal pain; Z88.3 Allergy status to other anti-infective agents
CPT/HCPCS: 99283; 96375; 96365; 96366; 96367; 36415; 82962; 84550; 85025; 80048; 81001; J3490 ×2; J1610; J2405; J3370

== ENCOUNTER 2016-10-03 14:58 | Emergency (ER) | payer MEDICARE, MEDICAID ==
[2016-10-03] MEDS ORDERED: DOXYCYCLINE HYCLATE 100 MG TABLET PO ONE (15:44)
[2016-10-03] MEDS ORDERED: ACETAMINOPHEN 325 MG TABLET PO ONE (15:44)
--- NOTE | 2016-10-03 15:44 | ER Document Report ---
ED Extremity Problem, Lower - General Mode of Arrival: Ambulatory Information source: Patient TRAVEL OUTSIDE OF THE [place] IN LAST 30 DAYS: No - HPI Patient complains to provider of: Pain, Swelling Location: Leg - left - General Chief Complaint: Leg Pain Stated Complaint: LEG PAIN Time Seen by Provider: 10/03/16 15:16 Notes: Patient is a 36 year old male that presents to the emergency department today with complaints of left leg pain. Patient and caregiver at bedside state the patient was recently diagnosed with cellulitis of the LLE and it presented in a similar fashion. Patient and caregiver at bedside state that the patient has not been bitten by anything as far as they are aware. Patient and caregiver deny any fevers, cough, shortness of breath, or abdominal pain. (CARLOS GRACE) - Related Data Allergies/Adverse Reactions: ceftriaxone sodium [From Rocephin] Allergy (Mild, Verified 08/28/16 20:38) clindamycin Allergy (Mild, Verified 08/28/16 20:38) chest, neck rash haloperidol [From Haldol] Allergy (Verified 08/28/16 20:25) Generalized rash Past Medical History - General Information source: Patient - Social History Smoking Status: Never Smoker Cigarette use (# per day): No Frequency of alcohol use: None Drug Abuse: None Lives with: Family Family History: Reviewed & Not Pertinent Patient has suicidal ideation: No Patient has homicidal ideation: No Musculoskeltal Medical History: Reports Hx Arthritis - BEING EVALUATED Psychiatric Medical History: Reports: Hx Anxiety, Hx Depression Surgical Hx: Negative - Immunizations Hx Diphtheria, Pertussis, Tetanus Vaccination: Yes Review of Systems - Review of Systems Constitutional: No symptoms reported EENT: No symptoms reported Cardiovascular: No symptoms reported Respiratory: No symptoms reported Gastrointestinal: No symptoms reported Genitourinary: No symptoms reported Male Genitourinary: No symptoms reported Musculoskeletal: No symptoms reported Skin: See HPI, Other - concerns for cellulitis to LLE Hematologic/Lymphatic: No symptoms reported Neurological/Psychological: No symptoms reported -: Yes All other systems reviewed and negative Physical Exam - Vital signs Vitals: Resp Pulse Ox 23 H 99 10/03/16 15:26 10/03/16 15:26 - Notes Notes: Physical Exam: General: Alert, appears well. HEENT: Normocephalic. Atraumatic. PERRL. Extraocular movements intact. Oropharynx clear. Deaf at baseline. Neck: Supple. Non-tender. Respiratory: No respiratory distress. Clear and equal breath sounds bilaterally. Cardiovascular: Regular rate and rhythm. Abdominal: Normal Inspection. Non-tender. No distension. Normal Bowel Sounds. Back: Non-tender. No deformity or step off. Extremities: Moves all four extremities. Upper extremities: Normal inspection. Normal ROM. Lower extremities: Normal inspection. No edema. Normal ROM. Neurological: Normal cognition. AAOx4. Normal speech. Psychological: Normal affect. Normal Mood. Skin: Healing wound to left lower extremity. Surrounding erythema, non- streaking. No edema. (CARLOS GRACE) Course - Re-evaluation Re-evalutation: 10/03/16 Patient appears well. Patient is complaining of some redness of his left lower extremity. Patient with recent workup for DVT and PE which did not show anything. Recent lower extremity cellulitis. Patient will be started on doxycycline and is to return if there are any worsening or concerning symptoms. Patient and caregiver understand and agree with plan. Stable for discharge. ( MYA SWANN) - Vital Signs Vital signs: Temp Pulse Resp BP Pulse Ox 26 H 119/81 99 10/03/16 16:53 10/03/16 16:53 10/03/16 16:01 Discharge - Discharge Clinical Impression: Left leg cellulitis Condition: Stable Disposition: HOME, SELF-CARE Instructions: Cellulitis ([facility]) Additional Instructions: Please follow-up with your doctor this week. Please return if you have worsening or concerning symptoms. Prescriptions: Doxycycline Hyclate 100 mg PO BID #28 capsule Referrals: JOHN GOLDSMITH MD [Primary Care Provider] - Follow up as needed Scribe Attestation: 10/03/16 23:12 I personally performed the services described in the documentation, reviewed and edited the documentation which was dictated to the scribe in my presence, and it accurately records my words and actions. (MYA SWANN) Scribe Documentation - Scribe Written by Timboe:: Emmy Arnett, 10/03/2016 193 acting as scribe for :: Mario
[2016-10-03 20:00] VITALS: BP 119/81
== END 2016-10-03 17:00 | disposition home or self-care (01) ==
LOC: ER 14:58
DX: L03.116 Cellulitis of left lower limb (principal); M79.605 Pain in left leg; Z88.3 Allergy status to other anti-infective agents
CPT/HCPCS: 99283; A9270 ×2

== ENCOUNTER 2017-05-06 23:09 | Inpatient (IN) | payer MEDICARE, MEDICAID ==
[2017-05-07] MEDS ORDERED: FENTANYL CITRATE INJ/PF 100 MCG/2 ML AMPUL IV ONE ×2 (00:17→03:11)
[2017-05-07] MEDS ORDERED: NORMAL SALINE 1000 ML 1,000 ML IV ONE ×2 (00:17→02:45)
--- NOTE | 2017-05-07 00:25 | ER Document Report ---
ED General - General Chief Complaint: Fever Stated Complaint: FEVER Time Seen by Provider: 05/07/17 00:07 Mode of Arrival: Ambulatory Information source: Patient Notes: 36-year-old male who is deaf with visual deficits requiring interpretation by caregiver with sign language presents with complaints of abdominal pain fever symptoms started earlier today. Denies any nausea vomiting or diarrhea, denies any previous similar episodes. Denies any previous abdominal surgeries TRAVEL OUTSIDE OF THE [place] IN LAST 30 DAYS: No - HPI Onset: This afternoon Onset/Duration: Sudden Quality of pain: Achy Severity: Mild Pain Level: 1 Associated symptoms: Fever, Other Exacerbated by: Denies Relieved by: Denies Similar symptoms previously: No Recently seen / treated by doctor: No - Related Data Allergies/Adverse Reactions: ceftriaxone sodium [From Rocephin] Allergy (Mild, Verified 08/28/16 20:38) clindamycin Allergy (Mild, Verified 08/28/16 20:38) chest, neck rash haloperidol [From Haldol] Allergy (Verified 08/28/16 20:25) Generalized rash Past Medical History - Social History Smoking Status: Never Smoker Cigarette use (# per day): No Chew tobacco use (# tins/day): No Smoking Education Provided: No Family History: Reviewed & Not Pertinent - Past Medical History Cardiac Medical History: Denies: Hx Congestive Heart Failure, Hx Heart Attack, Hx Hypercholesterolemia , Hx Hypertension Pulmonary Medical History: Denies: Hx Asthma, Hx Bronchitis, Hx COPD, Hx Pneumonia, Hx Tuberculosis Neurological Medical History: Denies: Hx Seizures Endocrine Medical History: Denies: Hx Diabetes Mellitus Type 1, Hx Diabetes Mellitus Type 2 Renal/ Medical History: Denies: Hx Peritoneal Dialysis GI Medical History: Denies: Hx Cirrhosis, Hx Gastroesophageal Reflux Disease, Hx Hepatitis Musculoskeltal Medical History: Reports Hx Arthritis - BEING EVALUATED Psychiatric Medical History: Reports: Hx Anxiety, Hx Depression Infectious Medical History: Denies: Hx C-Diff, Hx Hepatitis, Hx MRSA Past Surgical History: Denies: Hx Pacemaker - Immunizations Hx Diphtheria, Pertussis, Tetanus Vaccination: Yes Review of Systems - Review of Systems Notes: REVIEW OF SYSTEMS: CONSTITUTIONAL : Admits to fever EENT: Denies eye, ear, throat, or mouth pain or symptoms. Denies nasal or sinus congestion or discharge. Denies throat, tongue, or mouth swelling or difficulty swallowing. CARDIOVASCULAR: Denies chest pain. Denies palpitations or racing or irregular heart beat. Denies ankle edema. RESPIRATORY: Denies cough, cold, or chest congestion. Denies shortness of breath, difficulty breathing, or wheezing. GASTROINTESTINAL: Admits to abdominal pain GENITOURINARY: Denies difficulty urinating, painful urination, burning, frequency, blood in urine, or discharge. MUSCULOSKELETAL: Denies back or neck pain or stiffness. Denies joint pain or swelling. SKIN: Denies rash, lesions or sores. HEMATOLOGIC : Denies easy bruising or bleeding. LYMPHATIC: Denies swollen, enlarged glands. NEUROLOGICAL: Denies confusion or altered mental status. Denies passing out or loss of consciousness. Denies dizziness or lightheadedness. Denies headache. Denies weakness or paralysis or loss of use of either side. Denies problems with gait or speech. Denies sensory loss, numbness, or tingling. Denies seizures. PSYCHIATRIC: Denies anxiety or stress. Denies depression, suicidal ideation, or homicidal ideation. ALL OTHER SYSTEMS REVIEWED AND NEGATIVE. Dictation was performed using [employer] voice recognition software PHYSICAL EXAMINATION: GENERAL: Baseline appearance HEAD: Atraumatic, normocephalic. EYES: Strabismus ENT: Nares patent, oropharynx clear without exudates. Moist mucous membranes. NECK: Normal range of motion, supple without lymphadenopathy LUNGS: Breath sounds clear to auscultation bilaterally and equal. No wheezes rales or rhonchi. HEART: Tachycardic ABDOMEN: Soft, generalized abdominal tenderness Musculoskeletal: Normal range of motion, no pitting or edema. No cyanosis. NEUROLOGICAL: Baseline mentation SKIN: Warm, Dry, normal turgor, no rashes or lesions noted. Physical Exam - Vital signs Vitals: Temp Pulse Resp BP Pulse Ox 99.5 F 131 H 18 106/65 95 05/06/17 23:57 05/06/17 23:57 05/06/17 23:57 05/06/17 23:57 05/06/17 23:57 Course - Re-evaluation Re-evalutation: 05/07/17 00:26 Interpretation performed by caregiver after multiple attempts to find an appropriate mill platform supervisor failed, family does not wish to have 1 of the providers who is able to interpret and sign, family is happy with me taking care of the patient, I have seen the patient in the past and they are happy with that care as well. I have concerns for intra-abdominal source given tachycardia fevers at home and abdominal pain CT with oral and IV contrast has been ordered 05/07/17 02:32 Patient is resting comfortably CT results pending 05/07/17 03:02 CBC noted mild white count elevation he is noted to be tachycardic however chest x-ray CT noted no signs of infectious process large amount of stool is noted which may be the cause of the patient's pain, this was a CT with oral and IV contrast, it is also noted that the patient had normal urinalysis 05/07/17 03:15 Patient's heart rate is back to the 130s 140s, given that I cannot find a specific source of infection or reason for the patient's tachycardia except constipation I did speak with the hospitalist who requests improvement of constipation 05/07/17 03:50 Soapsuds enema has been given, patient is having bowel movements rectal temp was noted to be a 100.5 Tylenol will be given hospitalist has been paged 05/07/17 04:10 Hospitalist will admit the patient at this time I have no source of infection but patient is tachycardic febrile hospitalist will defer on antibiotics at this time since no source - Vital Signs Vital signs: Temp Pulse Resp BP Pulse Ox 100.5 F H 131 H 23 H 106/65 95 05/07/17 03:50 05/06/17 23:57 05/07/17 04:00 05/06/17 23:57 05/07/17 04:00 - Laboratory Result Diagrams: 05/07/17 00:50 05/07/17 00:50 Laboratory results interpreted by me: 05/07/17 05/07/17 05/07/17 00:50 00:50 00:54 WBC 11.6 H RBC 4.23 L Hgb 12.7 L Seg Neutrophils % 82.0 H Lymphocytes % 6.1 L Absolute Neutrophils 9.5 H Carbon Dioxide 21 L Glucose 114 H Urine Protein 100 H Urine Blood SMALL H Urine Urobilinogen 2.0 H - Diagnostic Test Radiology reviewed: Image reviewed, Reports reviewed - constipation Discharge - Discharge Clinical Impression: Tachycardia Abdominal pain Qualifiers: Abdominal location: generalized Qualified Code(s): R10.84 - Generalized abdominal pain Lower back pain Qualifiers: Chronicity: acute Back pain laterality: bilateral Sciatica presence: without sciatica Qualified Code(s): M54.5 - Low back pain Fever Qualifiers: Fever type: unspecified Qualified Code(s): R50.9 - Fever, unspecified Condition: Stable Disposition: ADMITTED INPATIENT Admitting Provider: Hospitalist Unit Admitted: Telemetry Referrals: JOHN GOLDSMITH MD [Primary Care Provider] - Follow up as needed
[2017-05-07 01:12] LABS: ABSOLUTE BASOPHILS # (AUTO) 0.1 10^3/uL (0.0-0.2); ABSOLUTE LYMPHOCYTES (AUTO) 0.7 10^3/uL (0.5-4.7); ABSOLUTE MONOCYTES (AUTO) 1.3 10^3/uL (0.1-1.4); ABSOLUTE NEUT (AUTO) 9.5 10^3/uL (1.7-8.2); BASOPHILS % (AUTO) 0.4 % (0-2); EOSINOPHILS % (AUTO) 0.2 % (0-6); HEMATOCRIT 38.2 % (37.9-51.0); HEMOGLOBIN 12.7 g/dL (13.5-17.0); LYMPHOCYTES % (AUTO) 6.1 % (13-45); MEAN CORPUSCULAR HEMOGLOBIN 30.1 pg (27.0-33.4); MEAN CORPUSCULAR HGB CONC 33.4 g/dL (32.0-36.0); MEAN CORPUSCULAR VOLUME 90 fl (80-97); MONOCYTES % (AUTO) 11.3 % (3-13); PLATELET COUNT 175 10^3/uL (150-450); RED BLOOD COUNT 4.23 10^6/uL (4.35-5.55); RED CELL DISTRIBUTION WIDTH 13.2 % (11.5-14.0); TOTAL CELLS COUNTED % (AUTO) 100 %; WHITE BLOOD COUNT 11.6 10^3/uL (4.0-10.5)
[2017-05-07 01:21] LABS: VENOUS BLOOD BASE EXCESS -0.9 mmol/L; VENOUS BLOOD HCO3 24.5 mmol/L (20-32); VENOUS BLOOD PCO2 43.1 mmHg (35-63); VENOUS BLOOD PH 7.37 (7.30-7.42)
[2017-05-07 01:23] LABS: INTERNATIONAL RATION (INR) 0.99; PROTHROMBIN TIME 13.8 SEC (11.4-15.4)
[2017-05-07 01:35] LABS: ALANINE AMINOTRANSFERASE 26 U/L (21-72); ALBUMIN 3.8 g/dL (3.5-5.0); ALKALINE PHOSPHATASE 44 U/L (38-126); ANION GAP 11 (5-19); ASPARTATE AMINO TRANSFERASE 21 U/L (17-59); BILIRUBIN,DIRECT 0.2 mg/dL (0.0-0.4); BILIRUBIN,TOTAL 0.2 mg/dL (0.2-1.3); BLOOD UREA NITROGEN 18 mg/dL (7-20); CALCIUM 9.6 mg/dL (8.4-10.2); CARBON DIOXIDE 21 mmol/L (22-30); CHLORIDE 106 mmol/L (98-107); GLUCOSE 114 mg/dL (75-110); POTASSIUM 4.2 mmol/L (3.6-5.0); SODIUM 137.8 mmol/L (137-145); TOTAL PROTEIN 6.8 g/dL (6.3-8.2)
[2017-05-07 01:35] LABS: APPEARANCE,URINE CLOUDY; BILIRUBIN,URINE NEGATIVE (NEGATIVE); COLOR,URINE YELLOW; GLUCOSE, URINE NEGATIVE (NEGATIVE); KETONES,URINE NEGATIVE (NEGATIVE); LEUKOCYTE ESTERASE,URINE NEGATIVE (NEGATIVE); NITRITE,URINE NEGATIVE (NEGATIVE); PROTEIN,URINE 100 mg/dL (NEGATIVE); URINE SPECIFIC GRAVITY 1.027
--- NOTE | 2017-05-07 02:34 | RADIOLOGY REPORT (SQ) ---
EXAM DESCRIPTION: CHEST PA/LAT CLINICAL HISTORY: abd pain , fever COMPARISON: None. FINDINGS: Frontal and lateral views of the chest. The cardiomediastinal silhouette has normal size and contour. No consolidation, pneumothorax, or pleural effusion. Levoconvex scoliosis of the thoracolumbar spine. Upper abdominal soft tissues are unremarkable. IMPRESSION: 1. No acute pulmonary process identified.
--- NOTE | 2017-05-07 02:39 | RADIOLOGY REPORT (SQ) ---
EXAM DESCRIPTION: CT ABDOMEN AND PELVIS WITH CONTRAST CLINICAL HISTORY: abd pain, fever COMPARISON: None Available. TECHNIQUE: CT of the abdomen and pelvis are performed during IV bolus administration of 85 mL of Isovue-370. DLP: 1039.77 mGycm FINDINGS: Abdomen: The liver has normal size and density. No intrahepatic mass or biliary dilatation. No calcified gallstones. The spleen, pancreas, and adrenal glands are unremarkable. The kidneys have normal size and contour without evidence of solid mass or hydronephrosis. The aorta and IVC have normal caliber and position. The portal vein is patent. The proximal visceral and renal arteries are patent. No free intraperitoneal air. The stomach and duodenum have normal course. Pelvis: Prostate is not enlarged. Urinary bladder is unremarkable. No free pelvic fluid or lymphadenopathy. Dilated loops of large or small bowel. Large amount stool. Normal appendix. The visualized lung bases are clear. No destructive bone lesions identified. Levoconvex scoliosis of the lumbar spine. IMPRESSION: 1. No acute inflammatory or obstructive abnormality identified. 2. Large amount stool. Correlation for history of constipation recommended. This exam was performed according to our departmental dose-optimization program, which includes automated exposure control, adjustment of the mA and/or kV according to patient size and/or use of iterative reconstruction technique.
[2017-05-07] MEDS ORDERED: ACETAMINOPHEN 325 MG TABLET PO ONE (03:50)
[2017-05-07] MEDS ORDERED: ALBUTEROL SULFATE 0.083% NEB 2.5 MG/3 ML AMPUL NEB PRN (04:43)
[2017-05-07] MEDS ORDERED: ACETAMINOPHEN 650 MG SUPP.RECT PR PRN (04:43)
[2017-05-07] MEDS ORDERED: PROMETHAZINE HCL INJ 25 MG/1 ML VIAL IV PRN (04:43)
[2017-05-07] MEDS ORDERED: PEG 3350/NA SULF,BICARB,CL/KCL 4000 ML PO ONE ×2 (04:48→09:15)
--- NOTE | 2017-05-07 06:01 | PDOC H&P ---
History of Present Illness Admission Date/PCP: JOHN GOLDSMITH MD Patient complains of: Fever equal 102 per caregiver. History of Present Illness: CHAD FREY is a 36 year old male with history of deafness/mutism, mental retardation and chronic constipation was admitted with above-mentioned complaints. The history was obtained from his caregiver at bedside and ED physician/notes. According to the patient's caregiver, the patient is unable to produce any saliva. He is edentate but still not used to his new dentures. He also has problem with hypoglycemia. He apparently complained of having abdominal pain when he got to the ED. He also said that he was short of breath when I asked him with his caregiver using sign language. He apparently lived with his caregiver for several years and he is ambulatory at baseline. He has no dark or foul smelling urine and no skin breakdown. In the ED, his temperature was 99.5, heart rate 131, respiratory rate 18, blood pressure 106/65 with oxygen saturation of 95% on room air. His WBC was 11.6 with hemoglobin of 12.7. His lactic acid was 1.0 and his UA was negative. A CXR was done which was negative. He also had an abdominal CAT scan which only showed large amount of stool. He received 2 L of normal saline, 50 mcg fentanyl 2 and enema x1. Past Medical History Medical History: Other - According to caregiver and based on previous records. Cardiac Medical History: Denies: Congestive Heart Failure, Myocardial Infarction, Hyperlipidema, Hypertension Pulmonary Medical History: Denies: Asthma, Bronchitis, Chronic Obstructive Pulmonary Disease (COPD), Pneumonia, Tuberculosis Neurological Medical History: Reports: Other - mental retardation, deaf and mute. Denies: Seizures Endocrine Medical History: Denies: Diabetes Mellitus Type 1, Diabetes Mellitus Type 2 GI Medical History: Denies: Cirrhosis, Gastroesophageal Reflux Disease, Hepatitis Musculoskeltal Medical History: Reports: Arthritis - BEING EVALUATED Psychiatric Medical History: Reports: Depression Hematology: Denies: Anemia Infectious Medical History: Denies: Clostridium Difficile, Methicillin-Resistant Staph Aureus Past Surgical History Past Surgical History: Reports: None Denies: Pacemaker Social History Smoking Status: Never Smoker Frequency of Alcohol Use: None Hx Recreational Drug Use: No Drugs: None Hx Prescription Drug Abuse: No - Advance Directive Resuscitation Status: Full Code Family History Parental Family History Reviewed: Yes - Mother: CAD. Children Family History Reviewed: No Sibling(s) Family History Reviewed.: Yes Medication/Allergy Home Medications: B Infantis/B Ani/B Charlie/B Bifid [Ra Probiotic Digestive Care] 1 tab PO Q12 Clomipramine HCl [Anafranil 25 mg Capsule] 25 mg PO DAILY 08/28/16 Clonidine HCl [Catapres 0.1 mg Tablet] 0.1 mg PO Q12 08/28/16 Diazoxide [Proglycem 50 mg/ml Susp] 0.75 ml PO Q12 08/28/16 Divalproex Sodium [Depakote ER 500 mg Tab.sr] 1,000 mg PO QHS 08/28/16 Divalproex Sodium [Depakote ER 500 mg Tab.sr] 500 mg PO DAILY 08/28/16 Hydrocodone/Acetaminophen [[place] 5-325 mg Tablet] 1 tab PO Q6HP PRN 08/28/16 [place] Carbonate [[place] Carbonate ER] 450 mg PO Q12 08/28/16 Quetiapine Fumarate [Seroquel] 800 mg PO QHS 08/28/16 Sulfamethoxazole/Trimethoprim [Bactrim Ds Tablet] 1 each PO BID #14 tablet 08/30 Doxycycline Monohydrate 100 mg PO BID #14 capsule 08/31/16 Doxycycline Hyclate 100 mg PO BID #28 capsule 10/03/16 Allergies/Adverse Reactions: ceftriaxone sodium [From Rocephin] Allergy (Mild, Verified 08/28/16 20:38) clindamycin Allergy (Mild, Verified 08/28/16 20:38) chest, neck rash haloperidol [From Haldol] Allergy (Verified 08/28/16 20:25) Generalized rash Review of Systems ROS unobtainable: Other - unable to obtain accurate history since patient is nonverbal. Physical Exam Vital Signs: Temp Pulse Resp BP Pulse Ox 100.5 F H 131 H 23 H 106/65 95 05/07/17 03:50 05/06/17 23:57 05/07/17 04:00 05/06/17 23:57 05/07/17 04:00 Intake & Output 05/05/17 05/06/17 05/07/17 05:59 06:59 06:59 Weight 79 kg General appearance: PRESENT: no acute distress, well-developed Head exam: PRESENT: atraumatic, normocephalic Eye exam: PRESENT: PERRLA, other - Astigmatism. Mouth exam: PRESENT: dry mucosa Teeth exam: PRESENT: edentulous Neck exam: PRESENT: full ROM. ABSENT: JVD Respiratory exam: PRESENT: clear to auscultation [place]. ABSENT: rales, rhonchi, wheezes Cardiovascular exam: PRESENT: +S1, +S2, tachycardia Pulses: PRESENT: normal dorsalis pedis pul GI/Abdominal exam: PRESENT: distended, normal bowel sounds, soft, tenderness - diffuse.. ABSENT: rebound Rectal exam: PRESENT: deferred Extremities exam: ABSENT: pedal edema Musculoskeletal exam: PRESENT: full ROM Neurological exam: PRESENT: alert, awake Skin exam: PRESENT: dry, warm. ABSENT: erythema, rash Results Laboratory Results: 05/07/17 00:50 05/07/17 00:50 05/07/17 05/07/17 03 00:50 00:50 00:50 WBC 11.6 H RBC 4.23 L Hgb 12.7 L Hct 38.2 MCV 90 MCH 30.1 MCHC 33.4 RDW 13.2 Plt Count 175 Seg Neutrophils % 82.0 H Lymphocytes % 6.1 L Monocytes % 11.3 Eosinophils % 0.2 Basophils % 0.4 Absolute Neutrophils 9.5 H Absolute Lymphocytes 0.7 Absolute Monocytes 1.3 Absolute Eosinophils 0.0 Absolute Basophils 0.1 VBG pH VBG pCO2 VBG HCO3 VBG Base Excess Sodium 137.8 Potassium 4.2 Chloride 106 Carbon Dioxide 21 L Anion Gap 11 BUN 18 Creatinine 0.75 Est GFR ( Amer) > 60 Est GFR (Non-Af Amer) > 60 Glucose 114 H Lactic Acid 1.0 Calcium 9.6 Total Bilirubin 0.2 AST 21 ALT 26 Alkaline Phosphatase 44 Total Protein 6.8 Albumin 3.8 Urine Color Urine Appearance Urine pH Ur Specific [place] Urine Protein Urine Glucose (UA) Urine Ketones Urine Blood Urine Nitrite Ur Leukocyte Esterase 05/07/17 05/07/17 00:50 00:54 WBC RBC Hgb Hct MCV MCH MCHC RDW Plt Count Seg Neutrophils % Lymphocytes % Monocytes % Eosinophils % Basophils % Absolute Neutrophils Absolute Lymphocytes Absolute Monocytes Absolute Eosinophils Absolute Basophils VBG pH 7.37 VBG pCO2 43.1 VBG HCO3 24.5 VBG Base Excess -0.9 Sodium Potassium Chloride Carbon Dioxide Anion Gap BUN Creatinine Est GFR ( Amer) Est GFR (Non-Af Amer) Glucose Lactic Acid Calcium Total Bilirubin AST ALT Alkaline Phosphatase Total Protein Albumin Urine Color YELLOW Urine Appearance CLOUDY Urine pH 5.0 Ur Specific [place] 1.027 Urine Protein 100 H Urine Glucose (UA) NEGATIVE Urine Ketones NEGATIVE Urine Blood SMALL H Urine Nitrite NEGATIVE Ur Leukocyte Esterase NEGATIVE EKG Comments: Lead EKG, sinus rhythm, ventricular rate 115, [place] 0, LVH, no acute changes. Impressions: Abdomen/Pelvis CT 05/07/17 00:00 IMPRESSION: 1. No acute inflammatory or obstructive abnormality identified. 2. Large amount stool. Correlation for history of constipation recommended. This exam was performed according to our departmental dose-optimization program, which includes automated exposure control, adjustment of the mA and/or kV according to patient size and/or use of iterative reconstruction technique. Chest X-Ray 05/07/17 00:17 IMPRESSION: 1. No acute pulmonary process identified. Assessment & Plan - Diagnosis (1) SIRS (systemic inflammatory response syndrome) Is this a current diagnosis for this admission?: Yes Plan: No evidence of infection at this time but the patient has severe obsipation and possible dehydration. Abdominal CT scan reviewed. CXR and UA negative. He received an enema in the ED with no significant result per his caregiver. Will continue IV fluids and start HalfLytely and dulcolax supp and monitor. Will follow cultures done in the ED and hold off on antibiotics at this time since no clear infectious etiology. (2) Essential hypertension Is this a current diagnosis for this admission?: Yes Plan: Will monitor and resume his home BP medications when clarified by pharmacy. (3) History of hypoglycemia Is this a current diagnosis for this admission?: No Plan: Will monitor oral intake while hospitalized. (4) Impulse control disorder, unspecified Is this a current diagnosis for this admission?: No Plan: and mental retardation. The patient is on lithium and Depakote per previous medications' list. Will check levels and restart once his medications' list has been clarified by pharmacy - Time Time Spent: Greater than 70 Minutes Anticipated discharge: Home - Inpatient Certification Based on my medical assessment, after consideration of the patient's comorbidities, presenting symptoms, or acuity I expect that the services needed warrant INPATIENT care.: Yes I certify that my determination is in accordance with my understanding of Medicare's requirements for reasonable and necessary INPATIENT services [42 CFR 412.3e].: Yes
[2017-05-07] MEDS ORDERED: INFLUENZA ADLT QUAD (36MOS+) 2017-18 VAC 0.5 ML SYR IM PRN (06:07)
[2017-05-07] MEDS: HEPARIN SOD (PORCINE) 5,000 UNIT/ML 1 ML SYRINGE SUBCUT SCH ×3 (06:22→21:09)
[2017-05-07] MEDS: FENTANYL CITRATE INJ/PF 100 MCG/2 ML AMPUL IV PRN ×2 (06:23→13:22)
[2017-05-07] MEDS: NORMAL SALINE 1000 ML 1,000 ML IV PRN ×2 (06:30→18:25)
--- NOTE | 2017-05-07 07:05 | EKG REPORT ---
SEVERITY:- BORDERLINE ECG - SINUS TACHYCARDIA PROBABLE LEFT ATRIAL ABNORMALITY BORDERLINE LEFT AXIS DEVIATION NONSPECIFIC ST-T CHANGES ANTEROLATERAL LEADS : Confirmed by: Robby Dudley MD 07-May-2017 07:04:14
[2017-05-07] MEDS ORDERED: BISACODYL 10 MG SUPP.RECT PR SCH (08:00)
--- NOTE | 2017-05-07 13:19 | EKG REPORT ---
SEVERITY:- BORDERLINE ECG - SINUS RHYTHM BORDERLINE LEFT AXIS DEVIATION BORDERLINE T ABNORMALITIES, ANTERIOR LEADS : Confirmed by: Robby Dudley MD 07-May-2017 13:17:51
[2017-05-07] MEDS ORDERED: CLONIDINE HCL 0.1 MG TABLET PO ONE (13:30)
[2017-05-07] MEDS ORDERED: DIVALPROEX SODIUM 500 MG TAB.SR.24H PO ONE (13:30)
[2017-05-07] MEDS ORDERED: LITHIUM CARBONATE 450 MG TABLET.ER PO ONE (13:30)
[2017-05-07 15:01] LABS: LITHIUM 0.3 mEq/L (0.6-1.2)
[2017-05-07] MEDS ORDERED: CYCLOBENZAPRINE HCL 10 MG TABLET PO PRN (15:13)
[2017-05-07] MEDS: KETOROLAC TROMETHAMINE INJ/PF 30 MG/1 ML SDV IV PRN (17:19)
--- NOTE | 2017-05-07 17:56 | PDOC PROGRESS REPORT ---
Subjective Progress Note for:: 05/07/17 Subjective:: CHAD FREY is a 36-year-old male who presented to the emergency department complaining of abdominal pain, he also stated that he was short of breath. CT of the abdomen showed a large amount of stool. The patient received an enema 1 in the emergency department. Additionally, he was started on GoLYTELY. PMH includes mental retardation, mute, deaf, HYPOglycemia, cellulitis Patient seen this afternoon on rounds. Sister and electro mechanical designer at bedside. Through the use of the electro mechanical designer, the patient is complaining of abdominal pain and distention. He is actively drinking GoLYTELY. The patient was also complaining of midsternal chest pain, reproducible with palpation. EKG showed normal sinus rhythm, no evidence of acute infarction or ischemia. The patient did not appear to be in any acute distress. He was given fentanyl and toradol, patient endorsed chest pain relief. The patient also states that he is concerned about an area of redness rounding an old spider bite on the anterior portion of the left lower extremity. The area of erythema was marked, will monitor for signs of cellulitis Reason For Visit: SIRS Physical Exam Vital Signs: Temp Pulse Resp BP Pulse Ox 98.0 F 110 H 16 133/99 H 100 05/07/17 15:51 05/07/17 15:51 05/07/17 15:51 05/07/17 15:51 05/07/17 15:51 Intake & Output 05/06/17 05/07/17 05/08/17 06:59 06:59 06:59 Intake Total 20 Output Total 0 Balance 20 Weight 80 kg General appearance: PRESENT: no acute distress Head exam: PRESENT: atraumatic Eye exam: PRESENT: conjunctiva pink Mouth exam: PRESENT: moist Neck exam: PRESENT: full ROM Respiratory exam: PRESENT: clear to auscultation willard, symmetrical, unlabored Cardiovascular exam: PRESENT: RRR, +S1, +S2 Pulses: PRESENT: normal radial pulses, normal dorsalis pedis pul Vascular exam: PRESENT: normal capillary refill GI/Abdominal exam: PRESENT: distended, normal bowel sounds, tenderness Rectal exam: PRESENT: deferred Extremities exam: PRESENT: full ROM, tenderness - Left lower extremity Musculoskeletal exam: PRESENT: normal inspection, tenderness - Left lower extremity Neurological exam: PRESENT: alert, awake, oriented to person, oriented to place , oriented to time, oriented to situation Psychiatric exam: PRESENT: appropriate affect Skin exam: PRESENT: erythema - LLE, other - Evidence of an old spider bite on anterior left lower extremity. Results Impressions: Abdomen/Pelvis CT 05/07/17 00:00 IMPRESSION: 1. No acute inflammatory or obstructive abnormality identified. 2. Large amount stool. Correlation for history of constipation recommended. This exam was performed according to our departmental dose-optimization program, which includes automated exposure control, adjustment of the mA and/or kV according to patient size and/or use of iterative reconstruction technique. Chest X-Ray 05/07/17 00:17 IMPRESSION: 1. No acute pulmonary process identified. Status: Imported from PACS Assessment & Plan - Diagnosis (1) Constipation Qualifiers: Constipation type: slow transit constipation Qualified Code(s): K59.01 - Slow transit constipation Is this a current diagnosis for this admission?: Yes Plan: Severe constipation as seen on abdominal CT. According to the patient's caregiver, he has a history of constipation in the past. Currently he is not on stool softeners, only taking probiotics. The patient is currently drinking GoLYTELY in hopes of assisting him with having a bowel movement. (2) Cellulitis Qualifiers: Site of cellulitis: other site Qualified Code(s): L03.818 - Cellulitis of other sites Is this a current diagnosis for this admission?: Yes Plan: Patient was concerned about an area of erythema surrounding an old spider bite ( 2004) on the anterior portion of his left lower extremity. The area of erythema is small and mostly anterior. There are no pustules or open lesions. The area was marked, will monitor for worsening signs of cellulitis. The patient is afebrile, nontoxic-appearing, no plan to start antibiotics at this time. (3) Essential hypertension Is this a current diagnosis for this admission?: Yes Plan: Patient has a history of hypertension. Resumed home medication dose of clonidine. (4) Fever Qualifiers: Fever type: unspecified Qualified Code(s): R50.9 - Fever, unspecified Is this a current diagnosis for this admission?: Yes Plan: The patient has no documented fever since his arrival to [facility]. Per the caregiver the patient had a fever at home for which she treated with Tylenol. Chest x-ray and urinalysis negative. Blood cultures no growth. (5) History of hypoglycemia Is this a current diagnosis for this admission?: No Plan: According to his sister, the patient has a history of hypoglycemia. He apparently has a condition where his pancreas secretes too much insulin and his blood sugar will drop very low. His diet primarily consists of protein. Will monitor oral intake while hospitalized. (6) Impulse control disorder, unspecified Is this a current diagnosis for this admission?: No Plan: History of mental retardation. Restarted on home dose of Depakote and lithium. (7) SIRS (systemic inflammatory response syndrome) Is this a current diagnosis for this admission?: Yes Plan: Resolved. The patient does remain mildly tachycardic, however he has no fever and his respiratory rate and blood pressure are within normal limits. - Time Time Spent with patient: 15-24 minutes Medications reviewed and adjusted accordingly: Yes Anticipated discharge: Home - Inpatient Certification Based on my medical assessment, after consideration of the patient's comorbidities, presenting symptoms, or acuity I expect that the services needed warrant INPATIENT care.: Yes I certify that my determination is in accordance with my understanding of Medicare's requirements for reasonable and necessary INPATIENT services [42 CFR 412.3e].: Yes Medical Necessity: Risk of Complication if Not Cared For in Hospital - Plan Summary Plan Summary: Ultimately, the plan is to discharge the patient home
[2017-05-07] MEDS ORDERED: QUETIAPINE FUMARATE 100 MG TABLET PO SCH (19:00)
[2017-05-07] MEDS ORDERED: (PENDING PHARMACY ID) (Quetiapine Fumarate [Seroquel] 800 MG) PO SCH (19:00)
[2017-05-07] MEDS: LITHIUM CARBONATE 450 MG TABLET.ER PO SCH (21:08)
[2017-05-07] MEDS: DIVALPROEX SODIUM 500 MG TAB.SR.24H PO SCH (21:08)
[2017-05-07] MEDS: CLONIDINE HCL 0.1 MG TABLET PO SCH (21:08)
[2017-05-07] MEDS: CLOMIPRAMINE HCL 25 MG PO SCH (21:12)
[2017-05-08] MEDS: ACETAMINOPHEN 325 MG TABLET PO PRN ×2 (04:10→13:12)
[2017-05-08] MEDS: KETOROLAC TROMETHAMINE INJ/PF 30 MG/1 ML SDV IV PRN ×2 (04:42→20:47)
[2017-05-08 05:12] LABS: HEMATOCRIT 35.5 % (37.9-51.0); HEMOGLOBIN 11.9 g/dL (13.5-17.0); MEAN CORPUSCULAR HEMOGLOBIN 30.5 pg (27.0-33.4); MEAN CORPUSCULAR HGB CONC 33.5 g/dL (32.0-36.0); MEAN CORPUSCULAR VOLUME 91 fl (80-97); PLATELET COUNT 154 10^3/uL (150-450); RED CELL DISTRIBUTION WIDTH 13.7 % (11.5-14.0); WHITE BLOOD COUNT 9.8 10^3/uL (4.0-10.5)
[2017-05-08 05:29] LABS: ANION GAP 11 (5-19); BLOOD UREA NITROGEN 9 mg/dL (7-20); CALCIUM 8.9 mg/dL (8.4-10.2); CARBON DIOXIDE 21 mmol/L (22-30); CHLORIDE 108 mmol/L (98-107); GLUCOSE 92 mg/dL (75-110); POTASSIUM 4.5 mmol/L (3.6-5.0); SODIUM 139.8 mmol/L (137-145)
[2017-05-08 05:51] LABS: C-REACTIVE PROTEIN 184.7 mg/L (<10.0)
[2017-05-08] MEDS: HEPARIN SOD (PORCINE) 5,000 UNIT/ML 1 ML SYRINGE SUBCUT SCH ×3 (06:28→21:23)
[2017-05-08] MEDS: CLONIDINE HCL 0.1 MG TABLET PO SCH ×2 (06:28→20:46)
[2017-05-08] MEDS: DIVALPROEX SODIUM 500 MG TAB.SR.24H PO SCH ×2 (06:29→20:46)
[2017-05-08] MEDS: LITHIUM CARBONATE 450 MG TABLET.ER PO SCH ×2 (06:29→20:46)
[2017-05-08] MEDS ORDERED: CLOMIPRAMINE HCL 25 MG PO SCH (07:00)
[2017-05-08] MEDS: NORMAL SALINE 1000 ML 1,000 ML IV PRN (08:14)
[2017-05-08] MEDS ORDERED: NORMAL SALINE 1000 ML 1,000 ML IV PRN (13:51)
[2017-05-08] MEDS ORDERED: VANCOMYCIN HCL 0 MG in DEXTROSE 5%-WATER 250 ML IV NR (14:00)
--- NOTE | 2017-05-08 14:22 | PDOC PROGRESS REPORT ---
Subjective Progress Note for:: 05/08/17 Subjective:: The patient is a 36-year-old male with a past medical history of deafness, significant developmental delay, and chronic constipation who was admitted on 02/12 with a complaint of constipation, abdominal pain, shortness of breath, and fever. The patient was seen on morning rounds with caregiver present. The patient reports a small bowel movement yesterday with continued hard stools, continued abdominal pain, shortness of breath, and a sore throat. He also reports increased erythema to the medial left lower leg. The caregiver mentions that the patient has an abscess to his anterior left thigh that he frequently picks at. The caregiver also mentions the patient was admitted approximately 6 months ago for cellulitis and at that time required 3 different IV antibiotics. Of note, the patient was noted to have a temperature of 102.7 overnight. Reason For Visit: SIRS Physical Exam Vital Signs: Temp Pulse Resp BP Pulse Ox 97.7 F 85 16 117/73 97 05/08/17 11:26 05/08/17 13:41 05/08/17 13:41 05/08/17 11:26 05/08/17 13:41 Intake & Output 05/07/17 05/08/17 05/09/17 06:59 06:59 06:59 Intake Total 20 2464 Output Total 0 1800 Balance 20 664 Weight 80 kg General appearance: PRESENT: no acute distress, cooperative, hard of hearing - ; uses ASL, well-developed, well-nourished Head exam: PRESENT: atraumatic, normocephalic Eye exam: PRESENT: conjunctiva pink, PERRLA. ABSENT: EOMI - Astigmatism, scleral icterus Ear exam: PRESENT: normal external ear exam Mouth exam: PRESENT: moist, tongue midline Throat exam: PRESENT: post pharyngeal erythema, tonsillar erythema, tonsillar exudate Neck exam: ABSENT: carotid bruit, JVD, lymphadenopathy, meningismus, thyromegaly Respiratory exam: PRESENT: clear to auscultation willard, symmetrical, unlabored. ABSENT: rales, rhonchi, wheezes Cardiovascular exam: PRESENT: RRR, +S1, +S2. ABSENT: diastolic murmur, rubs, systolic murmur Pulses: PRESENT: normal dorsalis pedis pul Vascular exam: PRESENT: normal capillary refill GI/Abdominal exam: PRESENT: normal bowel sounds, soft, tenderness - Generalized. ABSENT: distended, guarding, mass, organolmegaly, rebound Rectal exam: PRESENT: deferred Extremities exam: PRESENT: full ROM. ABSENT: calf tenderness, clubbing, pedal edema Neurological exam: PRESENT: alert, awake, CN II-XII grossly intact, other - Interacts appropriately with caregivers; interacts with me well and is questions appropriately. ABSENT: motor sensory deficit Psychiatric exam: PRESENT: appropriate affect, normal mood. ABSENT: homicidal ideation, suicidal ideation Skin exam: PRESENT: dry, erythema - Erythema to medial left leg beginning mid lower leg extending to mid thigh., warm. ABSENT: cyanosis, intact - Abscess with potential fluctuant collection to anterior thigh; slight surrounding erythema. No tenderness or active drainage., rash Results Laboratory Results: 05/08/17 03:46 05/08/17 03:46 05/08/17 05/08/17 03:46 03:46 WBC 9.8 RBC 3.90 L Hgb 11.9 L Hct 35.5 L MCV 91 MCH 30.5 MCHC 33.5 RDW 13.7 Plt Count 154 Sodium 139.8 Potassium 4.5 Chloride 108 H Carbon Dioxide 21 L Anion Gap 11 BUN 9 Creatinine 0.57 Est GFR ( Amer) > 60 Est GFR (Non-Af Amer) > 60 Glucose 92 Calcium 8.9 C-Reactive Protein 184.7 H Impressions: Abdomen/Pelvis CT 05/07/17 00:00 IMPRESSION: 1. No acute inflammatory or obstructive abnormality identified. 2. Large amount stool. Correlation for history of constipation recommended. This exam was performed according to our departmental dose-optimization program, which includes automated exposure control, adjustment of the mA and/or kV according to patient size and/or use of iterative reconstruction technique. Chest X-Ray 05/07/17 00:17 IMPRESSION: 1. No acute pulmonary process identified. Assessment & Plan - Diagnosis (1) SIRS (systemic inflammatory response syndrome) Is this a current diagnosis for this admission?: Yes Plan: The patient was admitted with a report of subjective fever of 102, observed tachycardia of 131, kidney of with a rate of 22, and WBCs of 11. He has subsequently developed a fever of 102.7. He was evaluated with chest x-ray, abdominal CT, urinalysis all of which were benign. Blood cultures: No growth at 24 hours Urine culture: No growth 1 day Throat culture: Pending The patient was admitted to the medical floor. He was provided 2 L IV fluids by the emergency department and continued on IV maintenance fluids. Antibiotics were initially held as the source of fever was not identified. The patient has since developed lymphangitis to the left leg with an abscess to the left anterior thigh. We will place the patient on pharmacy dose vancomycin. (2) Cellulitis and abscess of leg Is this a current diagnosis for this admission?: Yes Plan: History of cellulitis to the same leg. The patient was admitted approximately 6 months ago for similar symptoms. Abscess with fluctuant collection is noted to the anterior thigh. Blood cultures: No growth at 24 hours. Patient will be placed on vancomycin for coverage of MRSA. We will consult surgery for possible I&D of abscess; appreciate their evaluation and assistance. (3) Constipation Qualifiers: Constipation type: slow transit constipation Qualified Code(s): K59.01 - Slow transit constipation Is this a current diagnosis for this admission?: Yes Plan: Slight improvement; patient has had positive bowel movements although continues to have hard stools and sensation of constipation. Continue daily MiraLAX and Dulcolax suppository as needed. (4) Essential hypertension Is this a current diagnosis for this admission?: Yes Plan: Blood pressures are appropriate. We will continue home medications. (5) History of hypoglycemia Is this a current diagnosis for this admission?: Yes Plan: The patient has been placed on a regular diet. Accu-Cheks before meals and at bedtime The patient's home medication, Proglycem, is scheduled. (6) Impulse control disorder, unspecified Is this a current diagnosis for this admission?: Yes Plan: We will continue the patient's home medications. Provide for supportive care. - Time Time Spent with patient: 25-34 minutes Medications reviewed and adjusted accordingly: Yes - Inpatient Certification Based on my medical assessment, after consideration of the patient's comorbidities, presenting symptoms, or acuity I expect that the services needed warrant INPATIENT care.: Yes I certify that my determination is in accordance with my understanding of Medicare's requirements for reasonable and necessary INPATIENT services [42 CFR 412.3e].: Yes Medical Necessity: Need for IV Antibiotics
[2017-05-08] MEDS: VANCOMYCIN HCL 1,250 MG in DEXTROSE 5%-WATER 250 ML IV SCH ×2 (18:16→23:55)
[2017-05-08] MEDS ORDERED: QUETIAPINE FUMARATE 100 MG TABLET PO SCH (19:00)
[2017-05-08] MEDS ORDERED: DIAZOXIDE 50 MG/ML PO SCH (19:00)
[2017-05-08] MEDS: QUETIAPINE FUMARATE 100 MG TABLET PO SCH (20:46)
[2017-05-08] MEDS: CLOMIPRAMINE HCL 25 MG PO SCH (20:47)
[2017-05-08] MEDS ORDERED: DIAZOXIDE 50 MG/ML PO ONE (21:00)
[2017-05-09] MEDS: HEPARIN SOD (PORCINE) 5,000 UNIT/ML 1 ML SYRINGE SUBCUT SCH ×3 (06:14→22:11)
[2017-05-09] MEDS: CLONIDINE HCL 0.1 MG TABLET PO SCH (06:14)
[2017-05-09] MEDS: LITHIUM CARBONATE 450 MG TABLET.ER PO SCH ×2 (06:14→18:34)
[2017-05-09] MEDS: DIVALPROEX SODIUM 500 MG TAB.SR.24H PO SCH ×2 (06:14→18:33)
[2017-05-09] MEDS: VANCOMYCIN HCL 1,250 MG in DEXTROSE 5%-WATER 250 ML IV SCH ×4 (06:14→23:14)
[2017-05-09] MEDS: DIAZOXIDE 50 MG/ML PO SCH ×2 (06:16→18:34)
[2017-05-09 06:24] LABS: HEMATOCRIT 33.8 % (37.9-51.0); HEMOGLOBIN 11.3 g/dL (13.5-17.0); MEAN CORPUSCULAR HEMOGLOBIN 30.5 pg (27.0-33.4); MEAN CORPUSCULAR HGB CONC 33.4 g/dL (32.0-36.0); MEAN CORPUSCULAR VOLUME 92 fl (80-97); PLATELET COUNT 128 10^3/uL (150-450); RED BLOOD COUNT 3.69 10^6/uL (4.35-5.55); RED CELL DISTRIBUTION WIDTH 13.7 % (11.5-14.0); WHITE BLOOD COUNT 6.3 10^3/uL (4.0-10.5)
--- NOTE | 2017-05-09 06:32 | PDOC CONSULTATION ---
Consultation Consult Date: 05/08/17 Consult reason:: possible abscess left lateral upper thigh History of Present Illness Admission Date/PCP: 05/07/17 04:15 JOHN GOLDSMITH MD History of Present Illness: CHAD FREY is a 36 year old male with history of deafness/mutism, mental retardation and chronic constipation was admitted with above-mentioned complaints. The history was obtained from his caregiver at bedside and ED physician/notes. According to the patient's caregiver, the patient is unable to produce any saliva. He is edentate but still not used to his new dentures. He also has problem with hypoglycemia. He apparently complained of having abdominal pain when he got to the ED. He also said that he was short of breath when I asked him with his caregiver using sign language. He apparently lived with his caregiver for several years and he is ambulatory at baseline. He has no dark or foul smelling urine and no skin breakdown. In the ED, his temperature was 99.5, heart rate 131, respiratory rate 18, blood pressure 106/65 with oxygen saturation of 95% on room air. His WBC was 11.6 with hemoglobin of 12.7. His lactic acid was 1.0 and his UA was negative. A CXR was done which was negative. He also had an abdominal CAT scan which only showed large amount of stool. He received 2 L of normal saline, 50 mcg fentanyl 2 and enema x1. Incidentaly noted to have lesions in his left leg and not sure if there is an abscess. Past Medical History Cardiac Medical History: Denies: Congestive Heart Failure, Myocardial Infarction, Hyperlipidema, Hypertension Pulmonary Medical History: Denies: Asthma, Bronchitis, Chronic Obstructive Pulmonary Disease (COPD), Pneumonia, Tuberculosis Neurological Medical History: Reports: Other - mental retardation, deaf and mute. Denies: Seizures Endocrine Medical History: Denies: Diabetes Mellitus Type 1, Diabetes Mellitus Type 2 GI Medical History: Denies: Cirrhosis, Gastroesophageal Reflux Disease, Hepatitis Musculoskeltal Medical History: Reports: Arthritis - BEING EVALUATED Psychiatric Medical History: Reports: Depression Hematology: Denies: Anemia Infectious Medical History: Denies: Clostridium Difficile, Methicillin-Resistant Staph Aureus Past Surgical History Past Surgical History: Reports: None Denies: Pacemaker Social History Smoking Status: Never Smoker Frequency of Alcohol Use: None Hx Recreational Drug Use: No Drugs: None Hx Prescription Drug Abuse: No - Advance Directive Resuscitation Status: Full Code Family History Family History: Reviewed & Not Pertinent Parental Family History Reviewed: Yes Children Family History Reviewed: No Sibling(s) Family History Reviewed.: No Medication/Allergy Home Medications: Clomipramine HCl [Anafranil 25 mg Capsule] 25 mg PO DAILY@0700 05/07/17 Clonidine HCl [Catapres 0.1 mg Tablet] 0.1 mg PO BID@0700,19005/07/17 Diazoxide [Proglycem 50 mg/ml Susp] 0.75 ml PO BID@0700,189905/07/17 Divalproex Sodium [Depakote ER 500 mg Tab.sr] 1,000 mg PO DAILY@189905/07/17 Divalproex Sodium [Depakote ER 500 mg Tab.sr] 500 mg PO DAILY@0705/07/17 [place] Carbonate [[place] Carbonate ER 450 mg Tablet] 450 mg PO BID@0700,189905/07/17 Quetiapine Fumarate [Seroquel] 800 mg PO DAILY@189905/07/17 Allergies/Adverse Reactions: ceftriaxone sodium [From Rocephin] Allergy (Mild, Verified 08/28/16 20:38) clindamycin Allergy (Mild, Verified 08/28/16 20:38) chest, neck rash haloperidol [From Haldol] Allergy (Verified 08/28/16 20:25) Generalized rash Review of Systems Integumentary: PRESENT: lesions - left leg Physical Exam Vital Signs: Temp Pulse Resp BP Pulse Ox 97.9 F 93 17 114/61 97 05/09/17 03:17 05/09/17 03:17 05/09/17 03:17 05/09/17 03:17 05/09/17 03:17 Intake & Output 05/07/17 05/08/17 05/09/17 06:59 06:59 06:59 Intake Total 20 2464 1301 Output Total 0 1800 Balance 20 664 1301 Weight 80 kg General appearance: PRESENT: no acute distress Extremities exam: PRESENT: other - left lateral thigh with a healing elevated scab. Firm but minimal tenderness non-erythematous,non-fluctuant Results Impressions: Abdomen/Pelvis CT 05/07/17 00:00 IMPRESSION: 1. No acute inflammatory or obstructive abnormality identified. 2. Large amount stool. Correlation for history of constipation recommended. This exam was performed according to our departmental dose-optimization program, which includes automated exposure control, adjustment of the mA and/or kV according to patient size and/or use of iterative reconstruction technique. Chest X-Ray 05/07/17 00:17 IMPRESSION: 1. No acute pulmonary process identified. Assessment & Plan - Diagnosis (1) Healed abscess site left lateral thigh Is this a current diagnosis for this admission?: Yes - Time Time Spent: 30 to 50 Minutes - Plan Summary Plan Summary: No need to do anything on the healed abscess site on the left thigh lesion other than to observe if it becomes erythematous and tender
[2017-05-09 06:46] LABS: ANION GAP 10 (5-19); BLOOD UREA NITROGEN 15 mg/dL (7-20); CARBON DIOXIDE 23 mmol/L (22-30); CHLORIDE 108 mmol/L (98-107); GLUCOSE 87 mg/dL (75-110); POTASSIUM 4.3 mmol/L (3.6-5.0); SODIUM 140.6 mmol/L (137-145)
[2017-05-09] MEDS: ACETAMINOPHEN 325 MG TABLET PO PRN (08:22)
[2017-05-09] MEDS: POLYETHYLENE GLYCOL 3350 POWDER 17 GM/1 PACKET PO SCH (09:44)
[2017-05-09 12:34] LABS: VANCOMYCIN,TROUGH 16.8 ug/mL (5.0-20.0)
--- NOTE | 2017-05-09 17:18 | PDOC PROGRESS REPORT ---
Subjective Progress Note for:: 05/09/17 Subjective:: The patient is a 36-year-old male with a past medical history of deafness, significant developmental delay, and chronic constipation who was admitted on 02/12 with a complaint of constipation, abdominal pain, shortness of breath, and fever. Now on vancomycin for left lower extremity cellulitis. The patient was seen on rounds with caregiver and door maker present. The patient reports resolution of constipation. He reports that his lower back pain , dyspnea, and sore throat have all improved. His pain is now managed with Tylenol. He also reports improvement in the erythema to the medial left lower leg, although the leg remains tender. They have no new questions or concerns. Reason For Visit: SIRS Physical Exam Vital Signs: Temp Pulse Resp BP Pulse Ox 97.8 F 86 18 113/60 96 05/09/17 16:02 05/09/17 16:02 05/09/17 16:02 05/09/17 16:02 05/09/17 16:02 Intake & Output 05/08/17 05/09/17 05/10/17 06:59 06:59 06:59 Intake Total 2464 2391 Output Total 1800 Balance 664 2391 General appearance: PRESENT: no acute distress, cooperative, hard of hearing - Deaf; requires door maker, well-developed, well-nourished, other - Overweight Head exam: PRESENT: atraumatic, normocephalic Eye exam: PRESENT: conjunctiva pink, PERRLA, other - Astigmatism. ABSENT: EOMI , scleral icterus Ear exam: PRESENT: normal external ear exam Mouth exam: PRESENT: moist, tongue midline Neck exam: ABSENT: carotid bruit, JVD, lymphadenopathy, thyromegaly Respiratory exam: PRESENT: clear to auscultation willard, symmetrical, unlabored. ABSENT: rales, rhonchi, wheezes Cardiovascular exam: PRESENT: RRR, +S1, +S2. ABSENT: diastolic murmur, rubs, systolic murmur Pulses: PRESENT: normal dorsalis pedis pul Vascular exam: PRESENT: normal capillary refill GI/Abdominal exam: PRESENT: normal bowel sounds, soft. ABSENT: distended, guarding, mass, organolmegaly, rebound, tenderness Rectal exam: PRESENT: deferred Extremities exam: PRESENT: full ROM. ABSENT: calf tenderness, clubbing, pedal edema Neurological exam: PRESENT: alert, awake, oriented to person, oriented to place , oriented to time, oriented to situation, CN II-XII grossly intact. ABSENT: motor sensory deficit Psychiatric exam: PRESENT: appropriate affect, normal mood. ABSENT: homicidal ideation, suicidal ideation Skin exam: PRESENT: dry, erythema - Improved from yesterday, warm. ABSENT: cyanosis, intact - Abscess to left anterior thigh, rash Results Laboratory Results: 05/09/17 05:57 05/09/17 11:50 05/09/17 05/09/17 05/09/17 05:57 05:57 11:50 WBC 6.3 RBC 3.69 L Hgb 11.3 L Hct 33.8 L MCV 92 MCH 30.5 MCHC 33.4 RDW 13.7 Plt Count 128 L Sodium 140.6 Potassium 4.3 Chloride 108 H Carbon Dioxide 23 Anion Gap 10 BUN 15 Creatinine 0.54 0.57 Est GFR ( Amer) > 60 > 60 Est GFR (Non-Af Amer) > 60 > 60 Glucose 87 Calcium 9.0 Impressions: Abdomen/Pelvis CT 05/07/17 00:00 IMPRESSION: 1. No acute inflammatory or obstructive abnormality identified. 2. Large amount stool. Correlation for history of constipation recommended. This exam was performed according to our departmental dose-optimization program, which includes automated exposure control, adjustment of the mA and/or kV according to patient size and/or use of iterative reconstruction technique. Chest X-Ray 05/07/17 00:17 IMPRESSION: 1. No acute pulmonary process identified. Assessment & Plan - Diagnosis (1) SIRS (systemic inflammatory response syndrome) Is this a current diagnosis for this admission?: Yes Plan: Improved. The patient's leukocytosis has resolved and he has been afebrile for 24 hours. He was evaluated with chest x-ray, abdominal CT, urinalysis all of which were benign. Blood cultures: No growth at 48 hours Urine culture: Mixed urogenital erika Throat culture: Pending The patient was admitted to the medical floor. He was provided 2 L IV fluids by the emergency department and continued on IV maintenance fluids. Continue pharmacy dosed vancomycin. (2) Cellulitis and abscess of leg Is this a current diagnosis for this admission?: Yes Plan: Slightly improved today. History of cellulitis to the same leg. The patient was admitted approximately 6 months ago for similar symptoms. Abscess with fluctuant collection is noted to the anterior thigh; evaluated by surgery and found not to require incision and drainage at this time. Plan as above. (3) Constipation Qualifiers: Constipation type: slow transit constipation Qualified Code(s): K59.01 - Slow transit constipation Is this a current diagnosis for this admission?: Yes Plan: Improved. Continue daily MiraLAX and Dulcolax suppository as needed. (4) Essential hypertension Is this a current diagnosis for this admission?: Yes Plan: Blood pressures are appropriate. We will continue home medications; clonidine has been discontinued secondary to bradycardia. (5) History of hypoglycemia Is this a current diagnosis for this admission?: Yes Plan: The patient has been placed on a regular diet. Accu-Cheks before meals and at bedtime The patient's home medication, Proglycem, is scheduled. (6) Impulse control disorder, unspecified Is this a current diagnosis for this admission?: Yes Plan: We will continue the patient's home medications. Provide for supportive care. (7) Bradycardia Is this a current diagnosis for this admission?: Yes Plan: The patient has been noted to have several episodes of bradycardia to the 40s- 50s with occasional missed beats. Patient's medications are reviewed; have discontinued Flexeril, Toradol, promethazine, and clonidine. Continue to monitor on continuous cardiac telemetry. - Time Time Spent with patient: 35 or more minutes Medications reviewed and adjusted accordingly: Yes Anticipated discharge: Home Within: within 72 hours
[2017-05-09] MEDS: QUETIAPINE FUMARATE 100 MG TABLET PO SCH (18:33)
[2017-05-09] MEDS: CLOMIPRAMINE HCL 25 MG PO SCH (19:55)
[2017-05-09] MEDS: FENTANYL CITRATE INJ/PF 100 MCG/2 ML AMPUL IV PRN (20:59)
[2017-05-10] MEDS ORDERED: VALACYCLOVIR HCL 500 MG TABLET PO SCH (02:00)
[2017-05-10] MEDS ORDERED: VALACYCLOVIR HCL 500 MG TABLET ONE (06:51)
[2017-05-10] MEDS: VANCOMYCIN HCL 1,250 MG in DEXTROSE 5%-WATER 250 ML IV SCH ×2 (06:56→11:51)
[2017-05-10] MEDS: HEPARIN SOD (PORCINE) 5,000 UNIT/ML 1 ML SYRINGE SUBCUT SCH ×3 (06:57→22:35)
[2017-05-10] MEDS: DIVALPROEX SODIUM 500 MG TAB.SR.24H PO SCH ×2 (07:37→18:09)
[2017-05-10] MEDS: LITHIUM CARBONATE 450 MG TABLET.ER PO SCH ×2 (07:37→18:08)
[2017-05-10] MEDS: DIAZOXIDE 50 MG/ML PO SCH ×2 (07:38→18:10)
[2017-05-10] MEDS: POLYETHYLENE GLYCOL 3350 POWDER 17 GM/1 PACKET PO SCH (10:17)
[2017-05-10] MEDS: VALACYCLOVIR HCL 500 MG TABLET PO SCH ×2 (14:29→22:10)
--- NOTE | 2017-05-10 14:57 | PDOC PROGRESS REPORT ---
Subjective Progress Note for:: 05/10/17 Subjective:: The patient is a 36-year-old male with a past medical history of deafness, significant developmental delay, and chronic constipation who was admitted on 02/12 with a complaint of constipation, abdominal pain, shortness of breath, and fever. Now on vancomycin for left lower extremity cellulitis. The patient was seen on rounds with caregiver present. He states that overall, he is feeling much better. He denies sore throat, dyspnea, cough, abdominal pain, nausea, vomiting, diarrhea and constipation. He does report continued lower left leg tenderness. However, he initially indicates the tenderness is to his right leg by leaning forward and holding his lower leg and is corrected by caregiver back to his left leg. The caregiver reports that he does seem to be more comfortable in returning to his baseline personality. The caregiver has many questions with regard to changes in medications secondary to bradycardia. They express a desire to be discharged to home tomorrow if at all possible. Reason For Visit: SIRS Physical Exam Vital Signs: Temp Pulse Resp BP Pulse Ox 98.9 F 99 18 122/72 100 05/10/17 11:39 05/10/17 11:39 05/10/17 11:39 05/10/17 11:39 05/10/17 11:39 Intake & Output 05/09/17 05/10/17 05/11/17 06:59 06:59 06:59 Intake Total 2391 2014 Balance 2391 2014 General appearance: PRESENT: no acute distress, well-developed, well-nourished, other - Overweight Head exam: PRESENT: atraumatic, normocephalic Eye exam: PRESENT: conjunctiva pink, EOMI, PERRLA, other - Astigmatism. ABSENT : scleral icterus Ear exam: PRESENT: normal external ear exam Mouth exam: PRESENT: moist, tongue midline Neck exam: ABSENT: carotid bruit, JVD, lymphadenopathy, thyromegaly Respiratory exam: PRESENT: clear to auscultation willard, symmetrical, unlabored. ABSENT: rales, rhonchi, wheezes Cardiovascular exam: PRESENT: RRR, +S1, +S2, other - Normal rate and rhythm at present; telemetry strips reveal episodes of bradycardia to the mid 40s-50s.. ABSENT: diastolic murmur, rubs, systolic murmur Pulses: PRESENT: normal dorsalis pedis pul Vascular exam: PRESENT: normal capillary refill GI/Abdominal exam: PRESENT: normal bowel sounds, soft. ABSENT: distended, guarding, mass, organolmegaly, rebound, tenderness Rectal exam: PRESENT: deferred Extremities exam: PRESENT: full ROM. ABSENT: calf tenderness, clubbing, pedal edema Neurological exam: PRESENT: alert, awake, oriented to person, oriented to place , oriented to time, oriented to situation, CN II-XII grossly intact. ABSENT: motor sensory deficit Psychiatric exam: PRESENT: appropriate affect, normal mood. ABSENT: homicidal ideation, suicidal ideation Skin exam: PRESENT: dry, erythema - Slight erythema noted to the medial left lower leg; improved from yesterday., intact, warm. ABSENT: cyanosis, rash Results Laboratory Results: 05/09/17 05:57 05/09/17 11:50 05/08/17 11:58 Throat Throat Culture - Final GREATLY REDUCED NORMAL BRUCE Impressions: Abdomen/Pelvis CT 05/07/17 00:00 IMPRESSION: 1. No acute inflammatory or obstructive abnormality identified. 2. Large amount stool. Correlation for history of constipation recommended. This exam was performed according to our departmental dose-optimization program, which includes automated exposure control, adjustment of the mA and/or kV according to patient size and/or use of iterative reconstruction technique. Chest X-Ray 05/07/17 00:17 IMPRESSION: 1. No acute pulmonary process identified. Assessment & Plan - Diagnosis (1) SIRS (systemic inflammatory response syndrome) Is this a current diagnosis for this admission?: Yes Plan: Improved. The patient's leukocytosis has resolved and he has been afebrile for >48 hours. He was evaluated with chest x-ray, abdominal CT, urinalysis all of which were benign. Blood cultures: No growth at 72 hours Urine culture: Mixed urogenital bruce Throat culture: Normal bruce The patient was admitted to the medical floor. Pt did receive IV Vancomycin; will transition to p.o. doxycycline in anticipation of discharge tomorrow. (2) Cellulitis and abscess of leg Is this a current diagnosis for this admission?: Yes Plan: Continued improvement. History of cellulitis to the same leg. The patient was admitted approximately 6 months ago for similar symptoms. Abscess with fluctuant collection is noted to the anterior thigh; evaluated by surgery and found not to require incision and drainage at this time. Plan as above. (3) Constipation Qualifiers: Constipation type: slow transit constipation Qualified Code(s): K59.01 - Slow transit constipation Is this a current diagnosis for this admission?: Yes Plan: Resolved. Continue daily MiraLAX and Dulcolax suppository as needed. (4) Essential hypertension Is this a current diagnosis for this admission?: Yes Plan: Blood pressures are appropriate. We will continue home medications; clonidine has been discontinued secondary to bradycardia. (5) History of hypoglycemia Is this a current diagnosis for this admission?: Yes Plan: The patient has been placed on a regular diet. Accu-Cheks before meals and at bedtime The patient's home medication, Proglycem, is scheduled. (6) Impulse control disorder, unspecified Is this a current diagnosis for this admission?: Yes Plan: We will continue the patient's home medications. Provide for supportive care. (7) Bradycardia Is this a current diagnosis for this admission?: Yes Plan: The patient has been noted to have several episodes of bradycardia to the 40s- 50s with occasional missed beats. Patient's medications are reviewed; have discontinued Flexeril, Toradol, promethazine, and clonidine. Continue to monitor on continuous cardiac telemetry. Cardiology has been consulted; recommend event monitoring at discharge. Pt and caregiver elect to follow up with provider at [facility] to make these arrangements. - Time Time Spent with patient: 35 or more minutes Medications reviewed and adjusted accordingly: Yes Anticipated discharge: Home Within: within 24 hours
[2017-05-10] MEDS: DOXYCYCLINE HYCLATE 100 MG TABLET PO SCH (18:09)
[2017-05-10] MEDS: QUETIAPINE FUMARATE 100 MG TABLET PO SCH (18:09)
--- NOTE | 2017-05-10 18:16 | XCELERA REPORT ---
[address] [address] Transthoracic Echocardiogram Report Name: CHAD FREY Age: 36 yrs Gender: Male : 1980 Patient Status: Inpatient Patient Location: [address] [place] [address] Study Date: 05/10/2017 02:54 PM Height: 70 in Weight: 176 lb BSA: 2.0 m2 Procedure: A complete two-dimensional transthoracic echocardiogram was performed (2D, M-mode, spectral and color flow Doppler). The study was technically adequate with some images being suboptimal in quality. Reason For Study: bradycardia Ordering Physician: DIANE VELAZQUEZ Performed By: Zarina Burnham Interpretation Summary The left ventricular ejection fraction is normal. Doppler measurements suggest normal left ventricular diastolic function There is normal left ventricular wall thickness. The left ventricle is grossly normal size. Wall motion cannot be accurately commented on, but no definite regional wall motion abnormalities noted. The right ventricular systolic function is normal. The right atrium is normal in size The left atrial size is normal. There is a trace amount of mitral regurgitation There is no mitral valve stenosis. No aortic regurgitation is present. There is no aortic valve stenosis There is no tricuspid stenosis. No tricuspid regurgitation. There is no pulmonic valvular stenosis. There is no pulmonic valvular regurgitation. Mildly Dilated at 4.0 at sinus level. 2.5 cm at sinotubular junction. There is no pericardial effusion. MMode/2D Measurements & Calculations RVDd: 1.9 cm LVIDd: 4.6 cm FS: 40.9 % Ao root diam: 4.0 cm IVSd: 0.73 cm LVIDs: 2.7 cm EDV(Teich): 95.0 ml LVPWd: 0.87 cmESV(Teich): 26.7 mlAo root area: 12.5 cm2 EF(Teich): 71.9 % LA dimension: 2.1 cm LVOT diam: 2.7 cm LVOT area: 5.6 cm2 Doppler Measurements & Calculations MV E max leonel: MV P1/2t max leonel: Ao V2 max: LV V1 max P.4 cm/sec 84.4 cm/sec 98.4 cm/sec 2.9 mmHg MV A max leonel: MV P1/2t: 37.3 msec Ao max PG: LV V1 max: 61.7 cm/sec MVA(P1/2t): 5.9 cm2 3.9 mmHg 85.4 cm/sec MV E/A: 1.3 MV dec slope: NILAM(V,D): 4.9 cm2 663.4 cm/sec2 PA V2 max: 89.3 cm/sec PA max P.2 mmHg Left Ventricle The left ventricle is grossly normal size. There is normal left ventricular wall thickness. The left ventricular ejection fraction is normal. Doppler measurements suggest normal left ventricular diastolic function. Wall motion cannot be accurately commented on, but no definite regional wall motion abnormalities noted. Right Ventricle The right ventricle is grossly normal size. There is normal right ventricular wall thickness. The right ventricular systolic function is normal. Atria The right atrium is normal in size. The left atrial size is normal. Interarterial septum not well visualized and not well dopplered. Cannot comment on ASD/PFO presence. Mitral Valve The mitral valve is grossly normal. There is no mitral valve stenosis. There is a trace amount of mitral regurgitation. Aortic Valve The aortic valve is grossly normal. The aortic valve is trileaflet. There is no aortic valve stenosis. No aortic regurgitation is present. Tricuspid Valve The tricuspid valve is not well visualized, but is grossly normal. There is no tricuspid stenosis. No tricuspid regurgitation. Pulmonic Valve The pulmonic valve is not well visualized. There is no pulmonic valvular stenosis. There is no pulmonic valvular regurgitation. Great Vessels Mildly Dilated at 4.0 at sinus level. 2.5 cm at sinotubular junction. The inferior vena cava was not well visualized. Effusions There is no pericardial effusion. : DIANE VELAZQUEZ > Diane Velazquez
[2017-05-10] MEDS: ACETAMINOPHEN 325 MG TABLET PO PRN (19:47)
--- NOTE | 2017-05-10 20:40 | PDOC CONSULTATION ---
Consultation Consult Date: 05/10/17 Attending physician:: KEVIN CONCEPCION Consult reason:: Bradycardia History of Present Illness Admission Date/PCP: 05/07/17 04:15 JOHN GOLDSMITH MD Patient complains of: Lower extremity discomfort History of Present Illness: CHAD FREY is a 36 year old male with history of deafness/mutism, mental retardation and chronic constipation was admitted with above-mentioned complaints. The history was obtained from his caregiver at bedside and ED physician/notes. According to the patient's caregiver, the patient is unable to produce any saliva. He is edentate but still not used to his new dentures. He also has problem with hypoglycemia. He apparently complained of having abdominal pain when he got to the ED. He also said that he was short of breath when I asked him with his caregiver using sign language. He apparently lived with his caregiver for several years and he is ambulatory at baseline. He has no dark or foul smelling urine and no skin breakdown. In the ED, his temperature was 99.5, heart rate 131, respiratory rate 18, blood pressure 106/65 with oxygen saturation of 95% on room air. His WBC was 11.6 with hemoglobin of 12.7. His lactic acid was 1.0 and his UA was negative. A CXR was done which was negative. He also had an abdominal CAT scan which only showed large amount of stool. He received 2 L of normal saline, 50 mcg fentanyl 2 and enema x1. Incidentaly noted to have lesions in his left leg and not sure if there is an abscess. Patient was being monitored on a threat monitoring analyst and was noted to have intermittent bradycardia. There are some pauses noted but all less than 3 seconds. Bradycardias were transient and not sustained. No sustained tachycardia noted. I was asked to evaluate this patient because of bradycardia. There was some concern of intermittent heart block. Past Medical History Cardiac Medical History: Denies: Congestive Heart Failure, Myocardial Infarction, Hyperlipidema, Hypertension Pulmonary Medical History: Denies: Asthma, Bronchitis, Chronic Obstructive Pulmonary Disease (COPD), Pneumonia, Tuberculosis Neurological Medical History: Reports: Other - mental retardation, deaf and mute. Denies: Seizures Endocrine Medical History: Denies: Diabetes Mellitus Type 1, Diabetes Mellitus Type 2 GI Medical History: Denies: Cirrhosis, Gastroesophageal Reflux Disease, Hepatitis Musculoskeltal Medical History: Reports: Arthritis - BEING EVALUATED Psychiatric Medical History: Reports: Depression Hematology: Denies: Anemia Infectious Medical History: Denies: Clostridium Difficile, Methicillin-Resistant Staph Aureus Past Surgical History Past Surgical History: Reports: None Denies: Pacemaker Social History Information Source: Legal Guardian Smoking Status: Never Smoker Frequency of Alcohol Use: None Hx Recreational Drug Use: No Drugs: None Hx Prescription Drug Abuse: No - Advance Directive Resuscitation Status: Full Code Surrogate healthcare decision maker:: Patient's health caregiver. Family History Family History: Reviewed & Not Pertinent Parental Family History Reviewed: No Children Family History Reviewed: No Sibling(s) Family History Reviewed.: No - Family history not obtainable at this point. Medication/Allergy Home Medications: Clomipramine HCl [Anafranil 25 mg Capsule] 25 mg PO DAILY@0705/07/17 Clonidine HCl [Catapres 0.1 mg Tablet] 0.1 mg PO BID@07,189905/07/17 Diazoxide [Proglycem 50 mg/ml Susp] 0.75 ml PO BID@07,189905/07/17 Divalproex Sodium [Depakote ER 500 mg Tab.sr] 1,000 mg PO DAILY@189905/07/17 Divalproex Sodium [Depakote ER 500 mg Tab.sr] 500 mg PO DAILY@0705/07/17 Vanleer Carbonate [Vanleer Carbonate ER 450 mg Tablet] 450 mg PO BID@0700,189905/07/17 Quetiapine Fumarate [Seroquel] 800 mg PO DAILY@189905/07/17 Allergies/Adverse Reactions: ceftriaxone sodium [From Rocephin] Allergy (Mild, Verified 08/28/16 20:38) clindamycin Allergy (Mild, Verified 08/28/16 20:38) chest, neck rash haloperidol [From Haldol] Allergy (Verified 08/28/16 20:25) Generalized rash Review of Systems Review of Systems: This is difficult to obtain because of language barrier but patient denied any chest pain or shortness of breath. Patient not very physically active but is able to do his daily chores. Physical Exam Vital Signs: Temp Pulse Resp BP Pulse Ox 97.3 F 93 18 118/76 98 05/10/17 16:18 05/10/17 16:18 05/10/17 16:18 05/10/17 16:18 05/10/17 16:18 Intake & Output 05/09/17 05/10/17 05/11/17 06:59 06:59 06:59 Intake Total 2391 2014 1560 Balance 2392014 Exam: General appearance: PRESENT: no acute distress, well-developed. Patient is able to communicate via sign language. Head exam: PRESENT: atraumatic, normocephalic Eye exam: PRESENT: PERRLA, other - Astigmatism. Mouth exam: PRESENT: dry mucosa Teeth exam: PRESENT: edentulous Neck exam: PRESENT: full ROM. ABSENT: JVD Respiratory exam: PRESENT: clear to auscultation willard. ABSENT: rales, rhonchi, wheezes Cardiovascular exam: PRESENT: +S1, +S2, tachycardia. No murmur noted. Pulses: PRESENT: normal dorsalis pedis pul GI/Abdominal exam: PRESENT: distended, normal bowel sounds, soft, tenderness - diffuse.. ABSENT: rebound Rectal exam: PRESENT: deferred Extremities exam: ABSENT: pedal edema, no cyanosis or clubbing noted. Musculoskeletal exam: PRESENT: full ROM Neurological exam: PRESENT: alert, awake, on quick exam no focal neurological deficit noted. Patient communicates with sign language. Skin exam: PRESENT: dry, warm. ABSENT: erythema, rash Results Laboratory Results: 05/09/17 05:57 05/09/17 11:50 05/08/17 11:58 Throat Throat Culture - Final GREATLY REDUCED NORMAL BRUCE EKG Comments: Sinus rhythm with minor nonspecific T-wave changes. Impressions: Abdomen/Pelvis CT 05/07/17 00:00 IMPRESSION: 1. No acute inflammatory or obstructive abnormality identified. 2. Large amount stool. Correlation for history of constipation recommended. This exam was performed according to our departmental dose-optimization program, which includes automated exposure control, adjustment of the mA and/or kV according to patient size and/or use of iterative reconstruction technique. Chest X-Ray 05/07/17 00:17 IMPRESSION: 1. No acute pulmonary process identified. Assessment & Plan - Diagnosis (1) Bradycardia Is this a current diagnosis for this admission?: Yes (2) Essential hypertension Is this a current diagnosis for this admission?: Yes (3) SIRS (systemic inflammatory response syndrome) Is this a current diagnosis for this admission?: Yes (4) Cellulitis and abscess of leg Is this a current diagnosis for this admission?: Yes - Notes Notes: Bradycardia: This is felt to be related to vagal stimulation. Doubt sick sinus syndrome in this patient. Patient is noted to have pauses in sinus rhythm rather than heart blocks. At this point agree with holding clonidine. Would recommend event monitoring as an outpatient. Try alternative agent such as angiotensin receptor laurie or RAMON inhibitor for blood pressure control. Norvasc could also be used. Hypertension: Agree with holding clonidine. Alternatives are angiotensin receptor blockers and RAMON inhibitors. May also consider amlodipine. Systemic inflammatory response syndrome. This has improved. Continue with current management plans. Cellulitis and abscess: Patient in significant discomfort which could be causing vagal stimulation. A 2D echo was ordered and performed. It shows normal LVEF. Ascending aorta at sinus level mildly dilated at 4.0 cm given patient's BMI. It may be worthwhile to have a follow-up echocardiogram in 6 months 2 years. Further evaluation can be performed as an outpatient. I did review a CTA of the chest from last year. At that time however aortic root did not seem to be dilated, however there was motion artifact. - Time Time Spent: 30 to 50 Minutes - CODE STATUS was discussed, patient remains full code. Surrogate decision-maker patient current health caregiver. Multiple medical problems were addressed. More than 50% of the time spent coordinating care, discussing management plans with involved caregivers. Management plans discussed with involved personnels. Medical decision making was of moderate to high complexity, patient's has multiple comorbidities. Medications reviewed and adjusted accordingly: Yes
[2017-05-11] MEDS: FENTANYL CITRATE INJ/PF 100 MCG/2 ML AMPUL IV PRN (01:58)
[2017-05-11] MEDS: DOXYCYCLINE HYCLATE 100 MG TABLET PO SCH (06:49)
[2017-05-11] MEDS: DIVALPROEX SODIUM 500 MG TAB.SR.24H PO SCH (06:49)
[2017-05-11] MEDS: DIAZOXIDE 50 MG/ML PO SCH (06:49)
[2017-05-11] MEDS: LITHIUM CARBONATE 450 MG TABLET.ER PO SCH (06:49)
[2017-05-11] MEDS: VALACYCLOVIR HCL 500 MG TABLET PO SCH ×2 (06:49→14:17)
[2017-05-11] MEDS: HEPARIN SOD (PORCINE) 5,000 UNIT/ML 1 ML SYRINGE SUBCUT SCH (07:03)
[2017-05-11 07:48] LABS: HEMATOCRIT 36.6 % (37.9-51.0); HEMOGLOBIN 12.1 g/dL (13.5-17.0); MEAN CORPUSCULAR HEMOGLOBIN 30.3 pg (27.0-33.4); MEAN CORPUSCULAR HGB CONC 33.1 g/dL (32.0-36.0); MEAN CORPUSCULAR VOLUME 92 fl (80-97); PLATELET COUNT 197 10^3/uL (150-450); RED CELL DISTRIBUTION WIDTH 13.9 % (11.5-14.0); WHITE BLOOD COUNT 5.8 10^3/uL (4.0-10.5)
[2017-05-11 08:15] LABS: ANION GAP 9 (5-19); BLOOD UREA NITROGEN 18 mg/dL (7-20); CALCIUM 9.2 mg/dL (8.4-10.2); CARBON DIOXIDE 26 mmol/L (22-30); CHLORIDE 109 mmol/L (98-107); GLUCOSE 73 mg/dL (75-110); POTASSIUM 4.1 mmol/L (3.6-5.0)
[2017-05-11] MEDS ORDERED: HYDROCODONE/ACETAMINOPHEN 5-325 MG TABLET PO PRN (08:36)
[2017-05-11] MEDS: POLYETHYLENE GLYCOL 3350 POWDER 17 GM/1 PACKET PO SCH (10:22)
[2017-05-11 14:09] VITALS: BP 136/95
--- NOTE | 2017-05-11 17:06 | PDOC DISCHARGE SUMMARY ---
General - Admit/Disc Date/PCP Admission Date/Primary Care Provider: 05/07/17 04:15 JOHN GOLDSMITH MD Discharge Date: 05/11/17 - Discharge Diagnosis (1) SIRS (systemic inflammatory response syndrome) Is this a current diagnosis for this admission?: Yes (2) Cellulitis and abscess of leg Is this a current diagnosis for this admission?: Yes (3) Constipation Is this a current diagnosis for this admission?: Yes (4) Essential hypertension Is this a current diagnosis for this admission?: Yes (5) History of hypoglycemia Is this a current diagnosis for this admission?: Yes (6) Impulse control disorder, unspecified Is this a current diagnosis for this admission?: Yes (7) Bradycardia Is this a current diagnosis for this admission?: Yes - Additional Information Resuscitation Status: Full Code Discharge Diet: Regular, Diabetic Discharge Activity: Activity As Tolerated, Walk Frequently Prescriptions: Doxycycline Hyclate [Vibramycin 100 mg Tablet] 100 mg PO Q12A #14 tablet Hydrocodone/Acetaminophen [[place] 5-325 mg Tablet] 1 tab PO Q4HP PRN #18 tablet PRN Reason: Polyethylene Glycol 3350 [Clearlax] 17 gm PO DAILY #30 powd.pack Valacyclovir HCl [Valtrex 500 mg Tablet] 500 mg PO Q8 #3 tablet Home Medications: Clomipramine HCl [Anafranil 25 mg Capsule] 25 mg PO DAILY@0705/07/17 Diazoxide [Proglycem 50 mg/ml Susp] 0.75 ml PO BID@0700,189905/07/17 Divalproex Sodium [Depakote ER 500 mg Tab.sr] 1,000 mg PO DAILY@189905/07/17 Divalproex Sodium [Depakote ER 500 mg Tab.sr] 500 mg PO DAILY@0705/07/17 [place] Carbonate [[place] Carbonate ER 450 mg Tablet] 450 mg PO BID@0700,189905/07/17 Quetiapine Fumarate [Seroquel] 800 mg PO DAILY@189905/07/17 Acetaminophen [Tylenol 325 mg Tablet] 650 mg PO Q4HP PRN tablet 05/11/17 Doxycycline Hyclate [Vibramycin 100 mg Tablet] 100 mg PO Q12A #14 tablet Hydrocodone/Acetaminophen [[place] 5-325 mg Tablet] 1 tab PO Q4HP PRN #18 tablet 05/11/17 Polyethylene Glycol 3350 [Clearlax] 17 gm PO DAILY #30 powd.pack 05/11/17 Valacyclovir HCl [Valtrex 500 mg Tablet] 500 mg PO Q8 #3 tablet 05/11/17 History of Present Illness History of Present Illness: CHAD FREY is a 36 year old male with history of deafness/mutism, mental retardation and chronic constipation was admitted with above-mentioned complaints. The history was obtained from his caregiver at bedside and ED physician/notes. According to the patient's caregiver, the patient is unable to produce any saliva. He is edentate but still not used to his new dentures. He also has problem with hypoglycemia. He apparently complained of having abdominal pain when he got to the ED. He also said that he was short of breath when I asked him with his caregiver using sign language. He apparently lived with his caregiver for several years and he is ambulatory at baseline. He has no dark or foul smelling urine and no skin breakdown. In the ED, his temperature was 99.5, heart rate 131, respiratory rate 18, blood pressure 106/65 with oxygen saturation of 95% on room air. His WBC was 11.6 with hemoglobin of 12.7. His lactic acid was 1.0 and his UA was negative. A CXR was done which was negative. He also had an abdominal CAT scan which only showed large amount of stool. He received 2 L of normal saline, 50 mcg fentanyl 2 and enema x1. Hospital Course Hospital Course: The patient was admitted with SIRS evidenced by subjective fever of 102, elevated heart rate of 131, WBCs of 11.6. X-ray, UA, and abdominal CT scan were unrevealing other than a large amount of stool. Blood cultures were obtained; blood cultures have no growth at 4 days, urine cultures demonstrated only mixed urogenital erika. The patient continued to have elevated temperatures with the highest being 102.3 noted on the second day of admission. At that time he was noted to have posterior pharynx erythema and tonsillar exudates. A rapid strep test was negative, and throat culture showed only reduced normal erika. At the same time , the patient's caregiver noted that the patient had an abscess to his left anterior thigh. The patient also had light pink erythema to the lateral left thigh extending to his mid lower leg. The patient indicated that this was extremely tender. Therefore, the patient was initiated on vancomycin for coverage of possible MRSA. Surgery was consulted and determined that the patient would not require incision and drainage. Leukocytosis subsequently resolved. The patient was transitioned to p.o. doxycycline after remaining afebrile for than 48 hours. He was observed for an additional day mistreated continued improvement in erythema and pain. The patient was noted to have periods of bradycardia with pauses, none greater than 3 seconds. Cardiology was consulted. The patient's home medication, clonidine, which was discontinued. Echocardiogram was completed which revealed a normal LVEF and mildly debilitated ascending aorta. Cardiology recommends follow-up echocardiogram in 6 months to a year. He is recommended to have an event monitor to further evaluate bradycardia. The patient and caregiver elected to arrange this through his primary care office and [facility]. At time of discharge, the patient is in stable condition and pain is well controlled. All questions and concerns were addressed through the use of an park keeper each day but I interacted with this patient. The wound/ostomy clinical nurse specialist was available for my conversation with the patient and caregiver as well as nursing at time of discharge. Physical Exam Vital Signs: Temp Pulse Resp BP Pulse Ox 97.3 F 84 18 136/95 H 94 05/11/17 14:06 05/11/17 14:06 05/11/17 14:06 05/11/17 14:06 05/11/17 14:06 Intake & Output 05/10/17 05/11/17 05/12/17 06:59 06:59 06:59 Intake Total 2014 2610 Balance 2014 2610 General appearance: PRESENT: no acute distress, hard of hearing - deaf, well- developed, well-nourished Head exam: PRESENT: atraumatic, normocephalic Eye exam: PRESENT: conjunctiva pink, EOMI, PERRLA, other - Astigmatism. ABSENT : scleral icterus Ear exam: PRESENT: normal external ear exam Mouth exam: PRESENT: moist, tongue midline Teeth exam: PRESENT: edentulous, poor dentation Neck exam: ABSENT: carotid bruit, JVD, lymphadenopathy, thyromegaly Respiratory exam: PRESENT: clear to auscultation willard, symmetrical, unlabored. ABSENT: rales, rhonchi, wheezes Cardiovascular exam: PRESENT: bradycardia - Intermittent episodes of bradycardia ; regular rate and rhythm at present, +S1, +S2. ABSENT: diastolic murmur, rubs , systolic murmur Pulses: PRESENT: normal dorsalis pedis pul Vascular exam: PRESENT: normal capillary refill GI/Abdominal exam: PRESENT: normal bowel sounds, soft. ABSENT: distended, guarding, mass, organolmegaly, rebound, tenderness Rectal exam: PRESENT: deferred Extremities exam: PRESENT: full ROM. ABSENT: calf tenderness, clubbing, pedal edema Neurological exam: PRESENT: alert, awake, oriented to person, oriented to place , oriented to time, oriented to situation, CN II-XII grossly intact. ABSENT: motor sensory deficit Psychiatric exam: PRESENT: appropriate affect, normal mood. ABSENT: homicidal ideation, suicidal ideation Skin exam: PRESENT: dry, intact, warm. ABSENT: cyanosis, rash Results Laboratory Results: 05/11/17 07:15 05/11/17 07:15 05/11/17 05/11/17 07:15 07:15 WBC 5.8 RBC 4.00 L Hgb 12.1 L Hct 36.6 L MCV 92 MCH 30.3 MCHC 33.1 RDW 13.9 Plt Count 197 Sodium 144.0 Potassium 4.1 Chloride 109 H Carbon Dioxide 26 Anion Gap 9 BUN 18 Creatinine 0.65 Est GFR ( Amer) > 60 Est GFR (Non-Af Amer) > 60 Glucose 73 L Calcium 9.2 Impressions: Abdomen/Pelvis CT 05/07/17 00:00 IMPRESSION: 1. No acute inflammatory or obstructive abnormality identified. 2. Large amount stool. Correlation for history of constipation recommended. This exam was performed according to our departmental dose-optimization program, which includes automated exposure control, adjustment of the mA and/or kV according to patient size and/or use of iterative reconstruction technique. Chest X-Ray 05/07/17 00:17 IMPRESSION: 1. No acute pulmonary process identified. Qualifiers - * PATEINT BEING DISCHARGED WITH ANY OF THE FOLLOWING DIAGNOSIS?: No
--- NOTE | 2017-05-11 20:16 | PDOC PROGRESS REPORT ---
Subjective Progress Note for:: 05/11/17 Subjective:: Patient seen in the morning. He seems to be doing well without any significant complaints. He still has some left lower extremity discomfort. Telemetry strips shows no recurrence of bradycardia. Patient heart rate noted to be somewhat increased. Reason For Visit: SIRS Physical Exam Vital Signs: Temp Pulse Resp BP Pulse Ox 97.3 F 84 18 136/95 H 94 05/11/17 14:06 05/11/17 14:06 05/11/17 14:06 05/11/17 14:06 05/11/17 14:06 Intake & Output 05/10/17 05/11/17 05/12/17 06:59 06:59 06:59 Intake Total 2014 2610 Balance 2014 2610 Exam: General appearance: PRESENT: no acute distress, well-developed. Patient is able to communicate via sign language. Head exam: PRESENT: atraumatic, normocephalic Eye exam: PRESENT: PERRLA, other - Astigmatism. Mouth exam: PRESENT: dry mucosa Teeth exam: PRESENT: edentulous Neck exam: PRESENT: full ROM. ABSENT: JVD Respiratory exam: PRESENT: clear to auscultation willard. ABSENT: rales, rhonchi, wheezes Cardiovascular exam: PRESENT: +S1, +S2, tachycardia. No murmur noted. Pulses: PRESENT: normal dorsalis pedis pul GI/Abdominal exam: PRESENT: distended, normal bowel sounds, soft, tenderness - diffuse.. ABSENT: rebound Rectal exam: PRESENT: deferred Extremities exam: ABSENT: pedal edema, no cyanosis or clubbing noted. Musculoskeletal exam: PRESENT: full ROM Neurological exam: PRESENT: alert, awake, on quick exam no focal neurological deficit noted. Patient communicates with sign language. Skin exam: PRESENT: dry, warm. ABSENT: erythema, rash Results Laboratory Results: 05/11/17 07:15 05/11/17 07:15 05/11/17 05/11/17 07:15 07:15 WBC 5.8 RBC 4.00 L Hgb 12.1 L Hct 36.6 L MCV 92 MCH 30.3 MCHC 33.1 RDW 13.9 Plt Count 197 Sodium 144.0 Potassium 4.1 Chloride 109 H Carbon Dioxide 26 Anion Gap 9 BUN 18 Creatinine 0.65 Est GFR ( Amer) > 60 Est GFR (Non-Af Amer) > 60 Glucose 73 L Calcium 9.2 EKG Comments: Telemetry strips shows mild sinus tachycardia but otherwise no sustained tachy or bradycardia arrhythmia noted. Impressions: Abdomen/Pelvis CT 05/07/17 00:00 IMPRESSION: 1. No acute inflammatory or obstructive abnormality identified. 2. Large amount stool. Correlation for history of constipation recommended. This exam was performed according to our departmental dose-optimization program, which includes automated exposure control, adjustment of the mA and/or kV according to patient size and/or use of iterative reconstruction technique. Chest X-Ray 05/07/17 00:17 IMPRESSION: 1. No acute pulmonary process identified. Assessment & Plan - Diagnosis (1) Bradycardia Is this a current diagnosis for this admission?: Yes (2) Essential hypertension Is this a current diagnosis for this admission?: Yes (3) SIRS (systemic inflammatory response syndrome) Is this a current diagnosis for this admission?: Yes (4) Cellulitis and abscess of leg Is this a current diagnosis for this admission?: Yes - Notes Notes: Bradycardia: This is felt to be related to vagal stimulation. Doubt sick sinus syndrome in this patient. Patient is noted to have pauses in sinus rhythm rather than heart blocks. At this point agree with holding clonidine. Would recommend event monitoring as an outpatient. Try alternative agent such as angiotensin receptor laurie or RAMON inhibitor for blood pressure control. Norvasc could also be used. Patient was offered follow-up with me but he prefers to follow-up at [facility]. Discussed that he would need a event monitor and also a repeat 2D echocardiogram about [address] Hypertension: Agree with holding clonidine. Alternatives are angiotensin receptor blockers and RAMON inhibitors. May also consider amlodipine. Systemic inflammatory response syndrome. This has improved. Continue with current management plans. Cellulitis and abscess: Patient in significant discomfort which could be causing vagal stimulation. A 2D echo was ordered and performed. It shows normal LVEF. Ascending aorta at sinus level mildly dilated at 4.0 cm given patient's BMI. It may be worthwhile to have a follow-up echocardiogram in 6 months 2 years. Further evaluation can be performed as an outpatient. I did review a CTA of the chest from last year. At that time however aortic root did not seem to be dilated, however there was motion artifact. This above finding were discussed with patient's caregiver and surrogate healthcare decision maker. - Time Time with patient: 15-25 minutes - CODE STATUS was discussed, patient remains full code. Surrogate decision-maker unchanged. Multiple medical problems were addressed. More than 50% of the time spent coordinating care, discussing management plans with involved caregivers. Management plans discussed with involved personnels. Medical decision making was of moderate to high complexity , patient's has multiple comorbidities. Medications reviewed and adjusted accordingly: Yes
== END 2017-05-11 14:46 | disposition home or self-care (01) | DRG 603 ==
LOC: ER 23:09 → EH 05-07 04:15 → 3N 05-07 05:20 → 4N 05-07 22:55
PROVIDERS: ADMIT Internal Medicine Geriatric Medicine; ATTEND Internal Medicine Geriatric Medicine
PROC: 3E0F73Z Introduction of Anti-inflammatory into Respiratory Tract, Via Natural or Artificial Opening (ICD-10-PCS; principal; 2017-05-07)
DX: L03.116 Cellulitis of left lower limb (principal); E16.2 Hypoglycemia, unspecified; L02.416 Cutaneous abscess of left lower limb; F32.9 Major depressive disorder, single episode, unspecified; M19.90 Unspecified osteoarthritis, unspecified site; F41.9 Anxiety disorder, unspecified; M54.5 Low back pain; F79 Unspecified intellectual disabilities; I10 Essential (primary) hypertension; F63.9 Impulse disorder, unspecified; K59.01 Slow transit constipation; H91.3 Deaf nonspeaking, not elsewhere classified; R00.1 Bradycardia, unspecified; Z79.899 Other long term (current) drug therapy; Z88.1 Allergy status to other antibiotic agents; Z88.8 Allergy status to other drugs, medicaments and biological substances; Z82.49 Family history of ischemic heart disease and other diseases of the circulatory system
CPT/HCPCS: 36415; 71046; 74177; 80048; 80053; 80164; 80178; 80202; 81001; 82565; 82803; 82962; 83605; 84443; 85025; 85027; 85610; 86140; 87040; 87070; 87086; 87880; 93005; 93010; 93306; 96361; 96374; 96376; 99285; J1644; J1885; J3010; J3370; J3490; J7030; J7060

== ENCOUNTER → 2017-06-08 | Outpatient (CLI) | payer MEDICARE, MEDICAID ==
--- NOTE | 2017-06-08 14:45 | RADIOLOGY REPORT (SQ) ---
EXAM DESCRIPTION: CTA CHEST COMPLETED DATE/TIME: 06/08/2017 1:59 pm REASON FOR STUDY: AORTIC ANEURYSM (I71.9) I71.9 AORTIC ANEURYSM OF UNSPECIFIED SITE, WITHOUT RUPTUR E COMPARISON: 08/27/2016 TECHNIQUE: CT scan of the chest performed using helical scanning technique with dynamic intravenous contrast injection. Images reviewed with lung, soft tissue and bone windows. Reconstructed coronal and sagittal MPR images reviewed. Additional 3 dimensional post-processing performed to develop Maximal Intensity Projection images (ID P). All images stored on PACS. All CT scanners at this facility use dose modulation, iterative reconstruction, and/or weight based d osing when appropriate to reduce radiation dose to as low as reasonably achievable (ALARA). [facility]: Dose Right [facility]: CareDose [facility]: Dose Right [facility]: Teradose 4D [facility]: Smart path intelligence CONTRAST TYPE AND DOSE: contrast/concentration: Isovue mg/ml; Total Contrast Delivered: 51.0 ml; To rajani Saline Delivered: 79.0 ml RENAL FUNCTION: Creatinine 0.7 RADIATION DOSE: CT Rad equipment meets quality standard of care and radiation dose reduction techniq ues were employed. CTDIvol: 9.2 - 15.0 mGy. DLP: 372 mGy-cm. . LIMITATIONS: None. FINDINGS: LUNGS AND PLEURA: Subsegmental airspace disease superior segment left lower lobe most like ly atelectasis. No effusions. AORTA AND GREAT VESSELS: No aneurysm. No dissection. HEART: No pericardial effusion. No significant coronary artery calcifications. PULMONARY ARTERIES: No emboli visualized in the main pulmonary arteries or the segmental branches. HILAR AND MEDIASTINAL STRUCTURES: No identified masses or abnormal nodes. HARDWARE: None in the chest. UPPER ABDOMEN: No significant findings. Limited exam. THYROID AND OTHER SOFT TISSUES: No masses. No adenopathy. BONES: No acute or significant finding. 3D MIPS: Confirm above findings. OTHER: No other significant finding. IMPRESSION: No aneurysm or dissection. No acute findings in the chest. COMMENT: Quality ID # [id number]: Final reports with documentation of one or more dose reduction techniques (e.g., Automated exposure control, adjustment of the mA and/or kV according to patient size, use of iterative reconstruction technique) TECHNICAL DOCUMENTATION: JOB ID: [id number] [employer]- All Rights Reserved Reading location - IP/workstation name: [email or web address]
== END ==
LOC: RAD 12:17
PROVIDERS: ATTEND Internal Medicine Cardiovascular Disease
DX: I71.9 Aortic aneurysm of unspecified site, without rupture (principal)
CPT/HCPCS: 71275; 82565

== ENCOUNTER 2017-12-22 20:15 | Inpatient (IN) | payer MEDICARE, MEDICAID ==
--- NOTE | 2017-12-22 20:36 | ER Document Report ---
ED Medical Screen (RME) - General Chief Complaint: Skin Problem Stated Complaint: POSSIBLE INFECTION Time Seen by Provider: 12/22/17 20:35 Notes: 37-year-old male chief complaint of cellulitis of the left wrist, seen here yesterday and started on the current Bactrim, reportedly had 3 doses already, states that the area was marked but is worsening by spreading outside of this area. Patient reports pain to the area. Unsure if he is having fevers but he is taking Tylenol for pain. Past medical history of developmental delay, deafness, history of cellulitis in the past. TRAVEL OUTSIDE OF THE [place] IN LAST 30 DAYS: No - Related Data Allergies/Adverse Reactions: ceftriaxone sodium [From Rocephin] Allergy (Mild, Verified 12/21/17 21:29) clindamycin Allergy (Mild, Verified 12/21/17 21:29) chest, neck rash haloperidol [From Haldol] Allergy (Verified 12/21/17 21:29) Generalized rash Past Medical History - Past Medical History Cardiac Medical History: Denies: Hx Congestive Heart Failure, Hx Heart Attack, Hx Hypercholesterolemia , Hx Hypertension Pulmonary Medical History: Denies: Hx Asthma, Hx Bronchitis, Hx COPD, Hx Pneumonia, Hx Tuberculosis Neurological Medical History: Denies: Hx Seizures Endocrine Medical History: Denies: Hx Diabetes Mellitus Type 1, Hx Diabetes Mellitus Type 2 Renal/ Medical History: Denies: Hx Peritoneal Dialysis GI Medical History: Denies: Hx Cirrhosis, Hx Gastroesophageal Reflux Disease, Hx Hepatitis Musculoskeltal Medical History: Reports Hx Arthritis - BEING EVALUATED Psychiatric Medical History: Reports: Hx Anxiety, Hx Depression Infectious Medical History: Denies: Hx C-Diff, Hx Hepatitis, Hx MRSA Past Surgical History: Denies: Hx Pacemaker - Immunizations Hx Diphtheria, Pertussis, Tetanus Vaccination: Yes History of Influenza Vaccine for 11/2016 - 04/2017 Season: No Physical Exam - Vital signs Vitals: Temp Pulse Resp BP Pulse Ox 98.0 F 100 20 141/53 H 95 12/22/17 20:26 12/22/17 20:26 12/22/17 20:26 12/22/17 20:26 12/22/17 20:26 - Extremities General upper extremity: Other - Erythema and soft tissue swelling located over the left wrist, range of motion is still present, strength, cap refill, sensation in the hand is normal. No obvious wounds, no induration or fluctuance. Course - Vital Signs Vital signs: Temp Pulse Resp BP Pulse Ox 98.0 F 100 20 141/53 H 95 12/22/17 20:26 12/22/17 20:26 12/22/17 20:26 12/22/17 20:26 12/22/17 20:26 Doctor's Discharge - Discharge Referrals: JET MOON MD [Primary Care Provider] - Follow up as needed
[2017-12-22 21:05] LABS: ABSOLUTE EOSINOPHILS # (AUTO) 0.1 10^3/uL (0.0-0.6); ABSOLUTE LYMPHOCYTES (AUTO) 2.4 10^3/uL (0.5-4.7); ABSOLUTE MONOCYTES (AUTO) 1.2 10^3/uL (0.1-1.4); ABSOLUTE NEUT (AUTO) 5.5 10^3/uL (1.7-8.2); BASOPHILS % (AUTO) 0.5 % (0-2); EOSINOPHILS % (AUTO) 1.2 % (0-6); HEMATOCRIT 38.7 % (37.9-51.0); HEMOGLOBIN 13.3 g/dL (13.5-17.0); LYMPHOCYTES % (AUTO) 26.2 % (13-45); MEAN CORPUSCULAR HEMOGLOBIN 31.2 pg (27.0-33.4); MEAN CORPUSCULAR HGB CONC 34.3 g/dL (32.0-36.0); MEAN CORPUSCULAR VOLUME 91 fl (80-97); MONOCYTES % (AUTO) 12.7 % (3-13); PLATELET COUNT 176 10^3/uL (150-450); RED BLOOD COUNT 4.25 10^6/uL (4.35-5.55); RED CELL DISTRIBUTION WIDTH 13.6 % (11.5-14.0); SEGMENTED NEUTROPHILS % (AUTO) 59.4 % (42-78); TOTAL CELLS COUNTED % (AUTO) 100 %; WHITE BLOOD COUNT 9.3 10^3/uL (4.0-10.5)
[2017-12-22 21:25] LABS: ANION GAP 12 (5-19); BLOOD UREA NITROGEN 12 mg/dL (7-20); CALCIUM 9.5 mg/dL (8.4-10.2); CARBON DIOXIDE 25 mmol/L (22-30); CHLORIDE 105 mmol/L (98-107); GLUCOSE 77 mg/dL (75-110); POTASSIUM 4.4 mmol/L (3.6-5.0); SODIUM 141.9 mmol/L (137-145)
--- NOTE | 2017-12-22 22:00 | ER Document Report ---
ED General - General Chief Complaint: Skin Problem Stated Complaint: POSSIBLE INFECTION Time Seen by Provider: 12/22/17 20:35 Notes: Patient is a 37-year-old male who presents to the emergency department with a 2- day history of cellulitis to the left wrist. Seen in the emergency department yesterday. Started on Bactrim and received 3 doses at home. He still complains of pain at the site. The cellulitis was marked yesterday and has spread significantly. He has a history of cellulitis with sepsis in the past, developmentally delayed, and deaf. His roundhouse worker and caregiver at bedside. TRAVEL OUTSIDE OF THE [place] IN LAST 30 DAYS: No - Related Data Allergies/Adverse Reactions: ceftriaxone sodium [From Rocephin] Allergy (Mild, Verified 12/21/17 21:29) clindamycin Allergy (Mild, Verified 12/21/17 21:29) chest, neck rash haloperidol [From Haldol] Allergy (Verified 12/21/17 21:29) Generalized rash Past Medical History - Social History Smoking Status: Never Smoker Family History: Reviewed & Not Pertinent Patient has suicidal ideation: No Patient has homicidal ideation: No - Past Medical History Cardiac Medical History: Denies: Hx Congestive Heart Failure, Hx Heart Attack, Hx Hypercholesterolemia , Hx Hypertension Pulmonary Medical History: Denies: Hx Asthma, Hx Bronchitis, Hx COPD, Hx Pneumonia, Hx Tuberculosis Neurological Medical History: Denies: Hx Seizures Endocrine Medical History: Denies: Hx Diabetes Mellitus Type 1, Hx Diabetes Mellitus Type 2 Renal/ Medical History: Denies: Hx Peritoneal Dialysis GI Medical History: Denies: Hx Cirrhosis, Hx Gastroesophageal Reflux Disease, Hx Hepatitis Musculoskeletal Medical History: Reports Hx Arthritis - BEING EVALUATED Psychiatric Medical History: Reports: Hx Anxiety, Hx Depression Infectious Medical History: Denies: Hx C-Diff, Hx Hepatitis, Hx MRSA Past Surgical History: Denies: Hx Pacemaker - Immunizations Hx Diphtheria, Pertussis, Tetanus Vaccination: Yes Review of Systems - Review of Systems Notes: REVIEW OF SYSTEMS: CONSTITUTIONAL : Denies fever, chills, or sweats. Denies recent illness. EENT: Denies eye, ear, throat, or mouth pain or symptoms. Denies nasal or sinus congestion. CARDIOVASCULAR: Denies chest pain. RESPIRATORY: Denies cough, cold, or chest congestion. Denies shortness of breath, difficulty breathing, or wheezing. GASTROINTESTINAL: Denies abdominal pain. Denies nausea, vomiting, or diarrhea. Denies constipation. Last BM: MUSCULOSKELETAL: Denies neck or back pain or joint pain or swelling. SKIN: Redness, swelling, spreading distally to fingers. HEMATOLOGIC : Denies easy bruising or bleeding. LYMPHATIC: Denies swollen, enlarged glands. NEUROLOGICAL: Denies altered mental status or loss of consciousness. Denies headache. Denies weakness or paralysis or loss of use of either side. Denies problems with gait or speech. Denies sensory or motor loss. PSYCHIATRIC: Denies anxiety or stress or depression. ALL OTHER SYSTEMS REVIEWED AND NEGATIVE. Physical Exam - Vital signs Vitals: Temp Pulse Resp BP Pulse Ox 98.0 F 100 20 141/53 H 95 12/22/17 20:26 12/22/17 20:26 12/22/17 20:26 12/22/17 20:26 12/22/17 20:26 - Notes Notes: PHYSICAL EXAMINATION: GENERAL: Well-appearing, well-nourished and in no acute distress. HEAD: Atraumatic, normocephalic. EYES: Pupils equal round and reactive to light. ENT: nares patent, oropharynx clear without exudates. Moist mucous membranes. NECK: Normal range of motion, supple without lymphadenopathy LUNGS: Breath sounds clear to auscultation bilaterally and equal. No wheezes rales or rhonchi. HEART: Regular rate and rhythm without murmurs ABDOMEN: Soft, nontender, normoactive bowel sounds. No guarding, no rebound. No masses appreciated. EXTREMITIES: Normal range of motion, no pitting or edema. No cyanosis. NEUROLOGICAL: No focal neurological deficits. Moves all extremities spontaneously and on command. PSYCH: Normal mood, normal affect. SKIN: Warm, Dry, left wrist redness that spreads distally to hand noted. Course - Re-evaluation Re-evalutation: 12/22/17 22:00 Labs have resulted and although patient's white blood cell count has improved from yesterday, patient's clinical status has worsened. His cellulitis has been about 5 cm distally from the area that was marked yesterday. Due to patient's history of sepsis from previous cellulitis,, he will benefit from IV antibiotic therapy. I do not believe patient has a septic joint at this time. He is able to move his wrist freely. 12/22/17 22:53 Dr. Ornelas and I have spoke with Dr. Vázquez in regards to admission. Dr. Vázquez will come to bedside to evaluate patient. - Vital Signs Vital signs: Temp Pulse Resp BP Pulse Ox 98.0 F 100 20 141/53 H 95 12/22/17 20:26 12/22/17 20:26 12/22/17 20:26 12/22/17 20:26 12/22/17 20:26 - Laboratory Result Diagrams: 12/22/17 20:50 12/22/17 20:50 Laboratory results interpreted by me: 12/22/17 20:50 RBC 4.25 L Hgb 13.3 L Discharge - Discharge Clinical Impression: Cellulitis Condition: Stable Disposition: ADMITTED INPATIENT Admitting Provider: Hospitalist Unit Admitted: Medical Floor Referrals: JET MOON MD [Primary Care Provider] - Follow up as needed
[2017-12-22] MEDS ORDERED: VANCOMYCIN HCL INJ 1000 MG VIAL IV ONE (22:48)
[2017-12-22] MEDS ORDERED: VANCOMYCIN HCL 0 MG in DEXTROSE 5%-WATER 250 ML IV NR (23:45)
[2017-12-23] MEDS ORDERED: ACETAMINOPHEN 325 MG TABLET PO PRN (00:43)
[2017-12-23] MEDS: NORMAL SALINE 1000 ML 1,000 ML IV PRN ×3 (01:20→10:58)
[2017-12-23] MEDS ORDERED: GLUCAGON,HUMAN RECOMB 1 MG INJ IM PRN (01:35)
[2017-12-23] MEDS ORDERED: DEXTROSE 50%-WATER 25 GM/50 ML DISP.SYRIN IV PRN ×2 (01:35)
[2017-12-23] MEDS ORDERED: DEXTROSE 40% GEL 15 GM TUBE PO PRN ×2 (01:35)
[2017-12-23] MEDS: HEPARIN SOD (PORCINE) 5,000 UNIT/ML 1 ML SYRINGE SUBCUT SCH ×3 (06:10→21:44)
--- NOTE | 2017-12-23 06:17 | PDOC H&P ---
History of Present Illness Admission Date/PCP: 12/22/17 23:12 JET MOON MD Patient complains of: Left wrist erythema and pain History of Present Illness: CHAD FREY is a 37 year old male with a past medical history of deafness and mutism, developmental delay, chronic constipation and recurrent cellulitis. Patient presents with a 2-day history of cellulitis to the left wrist seen in the emergency room 24 hours ago, discharged with Bactrim with persistent worsening. In the emergency room borders of erythema have extended 5 cm. He complains of worsening pain but no loss of range of motion or use. He receives IV vancomycin referred to the hospitalist for admission. Past Medical History Cardiac Medical History: Denies: Congestive Heart Failure, Myocardial Infarction, Hyperlipidema, Hypertension Pulmonary Medical History: Denies: Asthma, Bronchitis, Chronic Obstructive Pulmonary Disease (COPD), Pneumonia, Tuberculosis Neurological Medical History: Denies: Seizures Endocrine Medical History: Denies: Diabetes Mellitus Type 1, Diabetes Mellitus Type 2 GI Medical History: Denies: Cirrhosis, Gastroesophageal Reflux Disease, Hepatitis Musculoskeltal Medical History: Reports: Arthritis - BEING EVALUATED Psychiatric Medical History: Reports: Depression Hematology: Denies: Anemia Infectious Medical History: Denies: Clostridium Difficile, Methicillin-Resistant Staph Aureus Past Surgical History Past Surgical History: Denies: Pacemaker Social History Information Source: [employer], [employer], [facility], 1928–1983 Records Lives with: Guardian Smoking Status: Never Smoker Frequency of Alcohol Use: None Hx Recreational Drug Use: No Drugs: None Hx Prescription Drug Abuse: No - Advance Directive Resuscitation Status: Full Code Family History Family History: Hypertension Parental Family History Reviewed: Yes Children Family History Reviewed: Yes Sibling(s) Family History Reviewed.: Yes Medication/Allergy Home Medications: Clomipramine HCl 25 mg PO QHS 12/21/17 Diazoxide [Proglycem 50 mg/ml Susp] 0.75 ml PO BID 12/21/17 Divalproex Sodium [Divalproex Sodium ER] 1,000 mg PO QHS 12/21/17 Divalproex Sodium [Divalproex Sodium ER] 500 mg PO DAILY 12/21/17 [place] Carbonate 450 mg PO BID 12/21/17 Quetiapine Fumarate [Seroquel Xr] 800 mg PO QHS 12/21/17 Acetaminophen [Tylenol 325 mg Tablet] 650 mg PO Q6HP PRN #30 tablet 12/22/17 Doxycycline Hyclate 100 mg PO BID #14 capsule 12/22/17 Sulfamethoxazole/Trimethoprim [Septra-Ds 800-160 mg Tablet] 1 tab PO BID #14 tablet 12/22/17 Allergies/Adverse Reactions: ceftriaxone sodium [From Rocephin] Allergy (Mild, Verified 12/21/17 21:29) clindamycin Allergy (Mild, Verified 12/21/17 21:29) chest, neck rash haloperidol [From Haldol] Allergy (Verified 12/21/17 21:29) Generalized rash Review of Systems Constitutional: ABSENT: chills, fever(s), headache(s), weight gain, weight loss Eyes: ABSENT: visual disturbances Ears: ABSENT: hearing changes Cardiovascular: ABSENT: chest pain, dyspnea on exertion, edema, orthropnea, palpitations Respiratory: ABSENT: cough, hemoptysis Gastrointestinal: ABSENT: abdominal pain, constipation, diarrhea, hematemesis, hematochezia, nausea, vomiting Genitourinary: ABSENT: dysuria, hematuria Musculoskeletal: ABSENT: joint swelling Integumentary: ABSENT: rash, wounds Neurological: ABSENT: abnormal gait, abnormal speech, confusion, dizziness, focal weakness, syncope Psychiatric: ABSENT: anxiety, depression, homidical ideation, suicidal ideation Endocrine: ABSENT: cold intolerance, heat intolerance, polydipsia, polyuria Hematologic/Lymphatic: ABSENT: easy bleeding, easy bruising Physical Exam Vital Signs: Temp Pulse Resp BP Pulse Ox 97.2 F 90 20 130/69 H 100 12/23/17 00:32 12/23/17 00:32 12/23/17 00:32 12/23/17 00:32 12/23/17 00:32 General appearance: PRESENT: cooperative, mild distress, well-developed, well- nourished Head exam: PRESENT: atraumatic, normocephalic Eye exam: PRESENT: conjunctiva pink, EOMI, PERRLA. ABSENT: scleral icterus Ear exam: PRESENT: normal external ear exam Mouth exam: PRESENT: moist, tongue midline Neck exam: ABSENT: carotid bruit, JVD, lymphadenopathy, thyromegaly Respiratory exam: PRESENT: clear to auscultation willard. ABSENT: rales, rhonchi, wheezes Cardiovascular exam: PRESENT: RRR. ABSENT: diastolic murmur, rubs, systolic murmur Pulses: PRESENT: normal dorsalis pedis pul Vascular exam: PRESENT: normal capillary refill GI/Abdominal exam: PRESENT: normal bowel sounds, soft. ABSENT: distended, guarding, mass, organolmegaly, rebound, tenderness Rectal exam: PRESENT: deferred Extremities exam: PRESENT: full ROM, tenderness - Left wrist with 6 x 4 cm of erythema and induration. Intact without discharge. ABSENT: calf tenderness, clubbing, pedal edema Neurological exam: PRESENT: alert, awake, oriented to person, oriented to place , oriented to time, oriented to situation, CN II-XII grossly intact. ABSENT: motor sensory deficit Psychiatric exam: PRESENT: appropriate affect, normal mood. ABSENT: homicidal ideation, suicidal ideation Skin exam: PRESENT: dry, intact, warm. ABSENT: cyanosis, rash Assessment & Plan - Diagnosis (1) Cellulitis Qualifiers: Is this a current diagnosis for this admission?: Yes Plan: Cellulitis Will obtain blood and wound culture repeat CBC, continue empiric antibiotic coverage for community-acquired MRSA with double coverage and symptomatic management. Consider surgical consultation if not significantly improved with follow-up evaluation. (2) Impulse control disorder Is this a current diagnosis for this admission?: Yes Plan: Continue outpatient regiment - Time Time Spent: 30 to 50 Minutes
[2017-12-23 06:21] LABS: ABSOLUTE EOSINOPHILS # (AUTO) 0.1 10^3/uL (0.0-0.6); ABSOLUTE LYMPHOCYTES (AUTO) 2.4 10^3/uL (0.5-4.7); ABSOLUTE MONOCYTES (AUTO) 0.8 10^3/uL (0.1-1.4); ABSOLUTE NEUT (AUTO) 3.6 10^3/uL (1.7-8.2); BASOPHILS % (AUTO) 0.4 % (0-2); EOSINOPHILS % (AUTO) 1.6 % (0-6); HEMATOCRIT 35.6 % (37.9-51.0); HEMOGLOBIN 12.2 g/dL (13.5-17.0); LYMPHOCYTES % (AUTO) 34.5 % (13-45); MEAN CORPUSCULAR HEMOGLOBIN 31.1 pg (27.0-33.4); MEAN CORPUSCULAR HGB CONC 34.1 g/dL (32.0-36.0); MEAN CORPUSCULAR VOLUME 91 fl (80-97); PLATELET COUNT 143 10^3/uL (150-450); RED BLOOD COUNT 3.92 10^6/uL (4.35-5.55); RED CELL DISTRIBUTION WIDTH 13.7 % (11.5-14.0); SEGMENTED NEUTROPHILS % (AUTO) 52.5 % (42-78); TOTAL CELLS COUNTED % (AUTO) 100 %; WHITE BLOOD COUNT 6.8 10^3/uL (4.0-10.5)
[2017-12-23 06:45] LABS: ANION GAP 12 (5-19); BLOOD UREA NITROGEN 11 mg/dL (7-20); CALCIUM 8.5 mg/dL (8.4-10.2); CARBON DIOXIDE 18 mmol/L (22-30); CHLORIDE 113 mmol/L (98-107); GLUCOSE 91 mg/dL (75-110); POTASSIUM 4.2 mmol/L (3.6-5.0); SODIUM 142.9 mmol/L (137-145)
[2017-12-23] MEDS: DOCUSATE SODIUM 100 MG CAPSULE PO SCH ×2 (10:05→17:08)
[2017-12-23] MEDS: LITHIUM CARBONATE 450 MG TABLET.ER PO SCH ×2 (10:06→17:54)
[2017-12-23] MEDS: VANCOMYCIN HCL 1,500 MG in DEXTROSE 5%-WATER 250 ML IV SCH ×2 (10:58→17:28)
[2017-12-23] MEDS ORDERED: DIAZOXIDE PO SCH (18:00)
--- NOTE | 2017-12-23 18:48 | PDOC PROGRESS REPORT ---
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 Doing better, redness left wrist improving. Pain controlled, no f/c, no SMITH, no n/v. He had flushing and redness with administration of kemp, has resolved. No rash, no trouble breathing, no tongue swelling. Reason For Visit: LEFT WRIST CELLULITIS Physical Exam Vital Signs: Temp Pulse Resp BP Pulse Ox 97.2 F 90 20 130/69 H 100 12/23/17 00:32 12/23/17 00:32 12/23/17 00:32 12/23/17 00:32 12/23/17 00:32 GENERAL: Well-developed, no acute distress HEENT: Normocephalic/atraumatic NECK supple, no JVD CARDIOVASCULAR: RRR, normal S1-S2 LUNGS: CTA bilaterally ABDOMEN: Soft, NT, NL bowel sounds EXTREMITIES: Left wrist erytherma slight/improving. No edema, clubbing, cyanosis NEUROLOGICAL: Alert, oriented x 3, nonfocal SKIN: No rash Assessment & Plan - Diagnosis (1) Cellulitis Qualifiers: Is this a current diagnosis for this admission?: Yes (2) Impulse control disorder Is this a current diagnosis for this admission?: Yes - Plan Summary Plan Summary: Continue vanco IV. Advised nurse to reduce infusion rate of vanco to 75ML and hr to prevent flushing (was getting at 150 mL/hr). Continue chronic meds otherwise.
[2017-12-23] MEDS: DIVALPROEX SODIUM 500 MG TAB.SR.24H PO SCH (21:43)
[2017-12-23] MEDS ORDERED: QUETIAPINE FUMARATE 800 MG PO SCH (22:00)
[2017-12-23] MEDS ORDERED: CLOMIPRAMINE HCL 25 MG PO SCH (22:00)
[2017-12-24] MEDS: VANCOMYCIN HCL 1,500 MG in DEXTROSE 5%-WATER 250 ML IV SCH ×3 (00:59→18:55)
[2017-12-24] MEDS: HEPARIN SOD (PORCINE) 5,000 UNIT/ML 1 ML SYRINGE SUBCUT SCH ×3 (05:09→21:09)
[2017-12-24] MEDS: DOCUSATE SODIUM 100 MG CAPSULE PO SCH ×2 (09:14→18:52)
[2017-12-24] MEDS: DIVALPROEX SODIUM 500 MG TAB.SR.24H PO SCH ×2 (09:15→21:09)
[2017-12-24] MEDS: LITHIUM CARBONATE 450 MG TABLET.ER PO SCH ×2 (09:19→18:52)
[2017-12-24 10:01] LABS: VANCOMYCIN,TROUGH 10.9 ug/mL (5.0-20.0)
--- NOTE | 2017-12-24 18:46 | PDOC PROGRESS REPORT ---
Subjective Progress Note for:: 12/24/17 Subjective:: 37-year-old male deafness and mutism, developmental delay, and recurrent cellulitis, admitted with left wrist cellulitis. 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 Continues to feel he is doing better, redness left wrist improving. Pain controlled, no f/c, no SMITH, no n/v. He no longer has flushing and redness with administration of vanco with decrease of the infusion rate to 75 mL an hour. No rash, no trouble breathing, no tongue swelling. Reason For Visit: LEFT WRIST CELLULITIS Physical Exam Vital Signs: Temp Pulse Resp BP Pulse Ox 97.9 F 94 20 119/67 99 12/24/17 07:15 12/24/17 07:15 12/24/17 07:15 12/24/17 07:15 12/24/17 07:15 Intake & Output 12/23/17 12/24/17 12/25/17 06:59 06:59 06:59 Intake Total 2700 741 Balance 2700 741 Weight 78.4 kg GENERAL: Well-developed, no acute distress HEENT: Normocephalic/atraumatic NECK supple, no JVD CARDIOVASCULAR: RRR, normal S1-S2 LUNGS: CTA bilaterally ABDOMEN: Soft, NT, NL bowel sounds EXTREMITIES: no edema, clubbing, cyanosis NEUROLOGICAL: Alert, oriented x 3, nonfocal SKIN: No rash, left wrist erytherma continues to improve. Also with chronic left leg ulcer has healed but with some surrounding erythema. This is also improving Results Laboratory Results: 12/24/17 09:21 12/24/17 09:21 Creatinine 0.62 Est GFR ( Amer) > 60 Est GFR (Non-Af Amer) > 60 Assessment & Plan - Diagnosis (1) Cellulitis Qualifiers: Is this a current diagnosis for this admission?: Yes (2) Impulse control disorder Is this a current diagnosis for this admission?: Yes - Plan Summary Plan Summary: Continue vanco IV. Patient could probably be discharged home on oral antibiotics tomorrow if continues to improve. Of note is that he has only been on Bactrim for 1 day and can probably continue with this since he had at least 3 days of vancomycin. He states he is allergic to clindamycin.. Continue chronic meds otherwise.
[2017-12-25] MEDS: VANCOMYCIN HCL 1,500 MG in DEXTROSE 5%-WATER 250 ML IV SCH (03:24)
[2017-12-25] MEDS: HEPARIN SOD (PORCINE) 5,000 UNIT/ML 1 ML SYRINGE SUBCUT SCH (06:02)
[2017-12-25] MEDS: DOCUSATE SODIUM 100 MG CAPSULE PO SCH (09:12)
[2017-12-25] MEDS: DIVALPROEX SODIUM 500 MG TAB.SR.24H PO SCH (09:13)
[2017-12-25] MEDS: LITHIUM CARBONATE 450 MG TABLET.ER PO SCH (09:15)
[2017-12-25] MEDS ORDERED: SULFAMETHOXAZOLE/TRIMETHOPRIM 800-160 MG TABLET PO SCH (10:15)
[2017-12-25 11:05] VITALS: BP 111/68
--- NOTE | 2017-12-25 13:12 | PDOC DISCHARGE SUMMARY ---
General - Admit/Disc Date/PCP Admission Date/Primary Care Provider: 12/23/17 14:50 JET MOON MD Discharge Date: 12/25/17 - Discharge Diagnosis (1) Cellulitis and abscess of leg Is this a current diagnosis for this admission?: Yes Summary: Patient had a cellulitis involving the left lower leg anterior tibial surface ( with a superficial ulceration/abscess) which was treated with IV antibiotics in the form of vancomycin initially and then he was converted to oral trimethoprim sulfa in the MRSA recommended dosage of 2 DS tablets twice daily. He will continue this at home after discharge and follow-up with his primary care provider within 1-2 weeks for initial reevaluation. (2) Cellulitis of left arm Is this a current diagnosis for this admission?: Yes Summary: Patient had a cellulitis involving the left wrist which was treated with IV antibiotics in the form of vancomycin initially and then he was converted to oral trimethoprim sulfa in the MRSA recommended dosage of 2 DS tablets twice daily. He will continue this at home after discharge and follow-up with his primary care provider within 1-2 weeks for initial reevaluation. (3) Essential hypertension Is this a current diagnosis for this admission?: Yes Summary: Patient was continued on his prehospital medications during his hospital course. He will continue his prehospital medications upon discharge when he returns home. (4) Bipolar disorder in remission Is this a current diagnosis for this admission?: Yes Summary: The patient's home medications were continued as available (and with formulary substitution) during his hospital stay. He will be continued on his entire prehospital regimen upon discharge. - Additional Information Resuscitation Status: Full Code Discharge Diet: As Tolerated Discharge Activity: Activity As Tolerated, Balance Activity w/Rest, Slowly Increase Activity Prescriptions: Sulfamethoxazole/Trimethoprim [Septra-Ds 800-160 mg Tablet] 2 tab PO Q12 10 Days #40 tablet Home Medications: Clomipramine HCl 25 mg PO QHS 12/21/17 Diazoxide [Proglycem 50 mg/ml Susp] 0.75 ml PO BID 12/21/17 Divalproex Sodium [Divalproex Sodium ER] 1,000 mg PO QHS 12/21/17 Divalproex Sodium [Divalproex Sodium ER] 500 mg PO DAILY 12/21/17 [place] Carbonate 450 mg PO BID 12/21/17 Quetiapine Fumarate [Seroquel Xr] 800 mg PO QHS 12/21/17 Acetaminophen [Tylenol 325 mg Tablet] 650 mg PO Q6HP PRN #30 tablet 12/22/17 Sulfamethoxazole/Trimethoprim [Septra-Ds 800-160 mg Tablet] 2 tab PO Q12 10 Days #40 tablet 12/25/17 History of Present Illness Patient complains of: Worsening redness and pain of cellulitis areas History of Present Illness: CHAD FREY is a 37 year old male with a 2-day history of cellulitis to the left wrist seen in the emergency room 24 hours ago, discharged with Bactrim with persistent worsening. In the emergency room borders of erythema have extended 5 cm. He complains of worsening pain but no loss of range of motion or use. He receives IV vancomycin referred to the hospitalist for admission. Hospital Course Hospital Course: Patient was treated with IV antibiotics utilizing vancomycin and the area of erythema was noted to gradually reduce. With evidence of good healing he was started on a more appropriate dose of Bactrim. The recommended dose for treating MRSA is two DS tablets twice daily for 7-10 days. With his improvement and overall stability in his vital signs was felt he was ready to be discharged to home in improved and stable condition on 12/25/2017. He will follow-up with his primary care provider within 1-2 weeks for initial reevaluation. Physical Exam Vital Signs: Temp Pulse Resp BP Pulse Ox 97.6 F 74 16 111/68 97 12/25/17 11:02 12/25/17 11:02 12/25/17 11:02 12/25/17 11:02 12/25/17 11:02 Intake & Output 12/23/17 12/24/17 12/25/17 23:59 23:59 23:59 Intake Total 1250 2441 950 Balance 1250 2441 950 Weight 78.4 kg 78.1 kg General appearance: PRESENT: no acute distress, cooperative, other - Sleeping and this morning. Head exam: PRESENT: atraumatic, normocephalic Respiratory exam: PRESENT: clear to auscultation willard, symmetrical, unlabored Cardiovascular exam: PRESENT: RRR. ABSENT: clicks, diastolic murmur, gallop, rubs, systolic murmur Vascular exam: PRESENT: normal capillary refill. ABSENT: pallor Skin exam: PRESENT: other - Erythema of the left wrist (dorsal) and the left anterior tibial surface (distal one third) is reduced from the boundaries that were drawn in marker on the skin. There is no induration and only very minimal edema. No evidence of fluctuance is noted.. ABSENT: jaundice, urticaria Results Laboratory Results: 12/24/17 09:21 Qualifiers - * PATIENT BEING DISCHARGED WITH ANY OF THE FOLLOWING DIAGNOSIS: No Plan Discharge Plan: Discharged home in improved and stable condition. Time Spent: Greater than 30 Minutes
== END 2017-12-25 13:00 | disposition home or self-care (01) | DRG 603 ==
LOC: ER 20:15 → EH 23:12 → INTOOBSV 23:12 → 4S 12-23 00:22 → OBSVTOIN 12-23 14:50
PROVIDERS: ADMIT Internal Medicine; ATTEND Internal Medicine
DX: L03.114 Cellulitis of left upper limb (principal); L03.116 Cellulitis of left lower limb; I10 Essential (primary) hypertension; K59.09 Other constipation; H91.3 Deaf nonspeaking, not elsewhere classified; F63.9 Impulse disorder, unspecified; R62.50 Unspecified lack of expected normal physiological development in childhood
CPT/HCPCS: 36415; 80048; 80053; 80202; 82565; 82962; 85025; 87040; 96374; 99284; G0378; J3370; J7030; J7060

== ENCOUNTER 2018-02-07 13:54 | Emergency (ER) | payer MEDICARE, MEDICAID ==
[2018-02-07 14:01] VITALS: BP 139/68
--- NOTE | 2018-02-07 14:32 | ER Document Report ---
HPI - HPI Patient complains to provider of: rash Time Seen by Provider: 02/07/18 14:17 Pain Level: 5 Context: Patient is a 37-year-old male presents to the ED complaining of area of erythema noted to his left forearm. Patient is deaf and has mild MR. Mother of the patient is in the room and willing to translate. Mother states she noticed the area of erythema to the patient's left forearm last night. 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 Mother denies any history of MRSA. Mother states last evening and into today she did notice some yellow discharge coming from the center of the erythema. Mother denies fever, vomiting, diarrhea or any other symptoms. Past medical history: Deaf, mild MR, ADHD, hypoglycemia Medications: [place], Divalprex, Clomipramine Allergies: Haldol, ceftriaxone, clindamycin - REPRODUCTIVE Reproductive: DENIES: : Past Medical History - General Information source: Patient - Social History Smoking Status: Unknown if Ever Smoked Family History: Hypertension - Past Medical History Cardiac Medical History: Denies: Hx Congestive Heart Failure, Hx Heart Attack, Hx Hypercholesterolemia , Hx Hypertension Pulmonary Medical History: Denies: Hx Asthma, Hx Bronchitis, Hx COPD, Hx Pneumonia, Hx Tuberculosis Neurological Medical History: Denies: Hx Seizures Endocrine Medical History: Denies: Hx Diabetes Mellitus Type 1, Hx Diabetes Mellitus Type 2 Renal/ Medical History: Denies: Hx Peritoneal Dialysis GI Medical History: Denies: Hx Cirrhosis, Hx Gastroesophageal Reflux Disease, Hx Hepatitis Musculoskeletal Medical History: Reports Hx Arthritis - BEING EVALUATED Psychiatric Medical History: Reports: Hx Anxiety, Hx Depression Infectious Medical History: Denies: Hx C-Diff, Hx Hepatitis, Hx MRSA Past Surgical History: Denies: Hx Pacemaker - Immunizations Hx Diphtheria, Pertussis, Tetanus Vaccination: Yes Vertical Provider Document - CONSTITUTIONAL Agree With Documented VS: Yes Notes: GENERAL: Alert, interacts well. No acute distress. non-verbal, using sign language with mother HEAD: Normocephalic, atraumatic. ENT: Oral mucosa moist, tongue midline. NECK: Full range of motion. Supple. Trachea midline. LUNGS: Clear to auscultation bilaterally, no wheezes, rales, or rhonchi. No respiratory distress. HEART: Regular rate and rhythm. No murmur ABDOMEN: Soft, non-tender. Non-distended. Bowel sounds present in all 4 quadrants. EXTREMITIES: Moves all 4 extremities spontaneously. No edema, normal radial and dorsalis pedis pulses bilaterally. No cyanosis. BACK: no cervical, thoracic, lumbar midline tenderness. No saddle anesthesia, normal distal neurovascular exam. NEUROLOGICAL: Alert and oriented normal per mother PSYCH: Normal affect, normal mood. SKIN: Warm, dry, normal turgor. 1cm x1cm area of induration noted left forearm with an open scab in the middle, no active d/c at this time. Surrounding cellulitis noted measuring 10cm x8cm. - INFECTION CONTROL TRAVEL OUTSIDE OF THE [place] IN LAST 30 DAYS: No Course - Re-evaluation Re-evalutation: 02/07/18 14:35 Area of cellulitic tissue marked with a marker. Patient will be placed on Keflex and Bactrim for MRSA coverage. Discussed with mom and patient that discharge from the wound would be likely. Discussed follow-up with primary care provider and close return precautions. Patient is afebrile and non- tachycardic upon discharge. 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 Mother stated pt. has been on Keflex in the past orally with no issues. - Vital Signs Vital signs: Temp Pulse Resp BP Pulse Ox 97.7 F 100 18 139/68 H 93 02/07/18 13:57 02/07/18 13:57 02/07/18 13:57 02/07/18 13:57 02/07/18 13:57 Discharge - Discharge Clinical Impression: Abscess Cellulitis Qualifiers: Site of cellulitis: extremity Site of cellulitis of extremity: upper extremity Laterality: left Qualified Code(s): L03.114 - Cellulitis of left upper limb Condition: Stable Disposition: HOME, SELF-CARE Instructions: Abscess ([facility]), Cephalexin ([facility]), Trimethoprim-Sulfa ([facility]) Additional Instructions: As we discussed you have been seen and treated in the emergency department for an abscess with surrounding cellulitis. This means you have a skin infection. Please take antibiotics as prescribed. Should you be on antibiotics for 48 hours and the redness has spread past the jerome we have placed on your arm you should return to the emergency room. Please follow-up with your primary care provider in 48 hours. Prescriptions: Cephalexin Monohydrate [Keflex 500 mg Capsule] 500 mg PO BID 7 Days #14 capsule Sulfamethoxazole/Trimethoprim [Septra-Ds 800-160 mg Tablet] 1 tab PO BID 7 Days tablet Sulfamethoxazole/Trimethoprim [Bactrim Ds Tablet] 1 each PO BID 7 Days #14 tablet Referrals: JET MOON MD [Primary Care Provider] - Follow up as needed
== END 2018-02-07 14:44 | disposition home or self-care (01) ==
LOC: ER 13:54
DX: L03.114 Cellulitis of left upper limb (principal); L02.91 Cutaneous abscess, unspecified; F70 Mild intellectual disabilities; H91.90 Unspecified hearing loss, unspecified ear; F32.9 Major depressive disorder, single episode, unspecified; Z79.899 Other long term (current) drug therapy; Z88.8 Allergy status to other drugs, medicaments and biological substances; Z88.1 Allergy status to other antibiotic agents
CPT/HCPCS: 99283

== ENCOUNTER 2018-05-10 09:39 | Inpatient (IN) | payer MEDICARE, MEDICAID ==
[2018-05-10] MEDS ORDERED: NORMAL SALINE 1000 ML 1,000 ML IV ONE (11:09)
--- NOTE | 2018-05-10 11:10 | ER Document Report ---
ED Medical Screen (RME) - General Chief Complaint: Abdominal Pain Stated Complaint: ABDOMINAL PAIN Time Seen by Provider: 05/10/18 11:05 TRAVEL OUTSIDE OF THE [place] IN LAST 30 DAYS: No - HPI Notes: 05/10/18 11:09 Patient is a 37-year-old male that presents to the emergency department for chief complaint of left inguinal cellulitis, abdominal pain and back pain. Patient was referred to ER from an urgent care facility. They told him that he had cellulitis in his left inguinal region. He is complaining of pain on his left inguinal region as well as lower abdomen and back. Caregiver reports low-grade fevers. Denies any vomiting or diarrhea. ROS: GENERAL: Denies chills and appetite changes CV: Denies chest pain PHYSICAL EXAMINATION: GENERAL: Well-appearing, well-nourished and in no acute distress. HEAD: Atraumatic, normocephalic. EYES: Pupils equal round extraocular movements intact, conjunctiva are normal. ENT: Nares patent NECK: Normal range of motion LUNGS: No respiratory distress Musculoskeletal: Normal range of motion NEUROLOGICAL: Nonverbal, normal gait. PSYCH: Normal mood, normal affect. MDM: Patient seen and examined for rapid initial assessment. Vital signs reviewed. A comprehensive ED assessment and evaluation of the patient, analysis of test results and completion of the medical decision making process will be conducted by additional ED providers. - Related Data Allergies/Adverse Reactions: haloperidol [From Haldol] Allergy (Verified 12/21/17 21:29) Generalized rash Past Medical History - Past Medical History Cardiac Medical History: Denies: Hx Congestive Heart Failure, Hx Heart Attack, Hx Hypercholesterolemia, Hx Hypertension Pulmonary Medical History: Denies: Hx Asthma, Hx Bronchitis, Hx COPD, Hx Pneumonia, Hx Tuberculosis Neurological Medical History: Denies: Hx Seizures Endocrine Medical History: Denies: Hx Diabetes Mellitus Type 1, Hx Diabetes Mellitus Type 2 Renal/ Medical History: Denies: Hx Peritoneal Dialysis GI Medical History: Denies: Hx Cirrhosis, Hx Gastroesophageal Reflux Disease, Hx Hepatitis Musculoskeltal Medical History: Reports Hx Arthritis - BEING EVALUATED Psychiatric Medical History: Reports: Hx Anxiety, Hx Depression Infectious Medical History: Denies: Hx C-Diff, Hx Hepatitis, Hx MRSA Past Surgical History: Denies: Hx Pacemaker - Immunizations Hx Diphtheria, Pertussis, Tetanus Vaccination: Yes History of Influenza Vaccine for 11/2016 - 04/2017 Season: No Physical Exam - Vital signs Vitals: Temp Pulse Resp BP Pulse Ox 97.6 F 107 H 16 115/57 L 98 05/10/18 09:49 05/10/18 09:49 05/10/18 09:49 05/10/18 09:49 05/10/18 09:49 Course - Vital Signs Vital signs: Temp Pulse Resp BP Pulse Ox 97.6 F 107 H 16 115/57 L 98 05/10/18 09:49 05/10/18 09:49 05/10/18 09:49 05/10/18 09:49 05/10/18 09:49
[2018-05-10] MEDS ORDERED: DEXTROSE 50%-WATER 25 GM/50 ML DISP.SYRIN IV ONE (11:50)
--- NOTE | 2018-05-10 11:57 | ER Document Report ---
ED General - General Chief Complaint: Abdominal Pain Stated Complaint: ABDOMINAL PAIN Time Seen by Provider: 05/10/18 11:05 Mode of Arrival: Stretcher Information source: Patient Cannot obtain history due to: Mentally challenged Notes: Per patient's caregiver, patient has redness in his left lower extremity and also complaining of abdominal pain. She said that this happened the last time patient was diagnosed with cellulitis. TRAVEL OUTSIDE OF THE [place] IN LAST 30 DAYS: No - HPI Onset: Yesterday Onset/Duration: Sudden Quality of pain: Achy Severity: Mild Pain Level: 1 Associated symptoms: Nausea. denies: Vomiting Exacerbated by: Denies Relieved by: Denies Similar symptoms previously: No Recently seen / treated by doctor: No - Related Data Allergies/Adverse Reactions: haloperidol [From Haldol] Allergy (Verified 05/10/18 11:43) Generalized rash Past Medical History - Social History Smoking Status: Never Smoker Family History: Hypertension Patient has suicidal ideation: No Patient has homicidal ideation: No - Past Medical History Cardiac Medical History: Denies: Hx Congestive Heart Failure, Hx Heart Attack, Hx Hypercholesterolemia, Hx Hypertension Pulmonary Medical History: Denies: Hx Asthma, Hx Bronchitis, Hx COPD, Hx Pneumonia, Hx Tuberculosis Neurological Medical History: Denies: Hx Seizures Endocrine Medical History: Denies: Hx Diabetes Mellitus Type 1, Hx Diabetes Mellitus Type 2 Renal/ Medical History: Denies: Hx Peritoneal Dialysis GI Medical History: Denies: Hx Cirrhosis, Hx Gastroesophageal Reflux Disease, Hx Hepatitis Musculoskeletal Medical History: Reports Hx Arthritis - BEING EVALUATED Psychiatric Medical History: Reports: Hx Anxiety, Hx Depression Infectious Medical History: Denies: Hx C-Diff, Hx Hepatitis, Hx MRSA Past Surgical History: Denies: Hx Pacemaker - Immunizations Hx Diphtheria, Pertussis, Tetanus Vaccination: Yes Review of Systems - Review of Systems Constitutional: No symptoms reported EENT: No symptoms reported Cardiovascular: No symptoms reported Respiratory: No symptoms reported Gastrointestinal: Abdominal pain, Nausea. denies: Diarrhea, Vomiting Genitourinary: No symptoms reported Male Genitourinary: No symptoms reported Musculoskeletal: No symptoms reported Skin: No symptoms reported Hematologic/Lymphatic: No symptoms reported Neurological/Psychological: No symptoms reported -: Yes All other systems reviewed and negative Physical Exam - Vital signs Vitals: Temp Pulse Resp BP Pulse Ox 97.6 F 107 H 16 115/57 L 98 05/10/18 09:49 05/10/18 09:49 05/10/18 09:49 05/10/18 09:49 05/10/18 09:49 Interpretation: Normal - General General appearance: Appears well, Alert, Other - Patient is mentally challenged and comunicates through sign language. - HEENT Head: Normocephalic, Atraumatic Eyes: Normal Pupils: PERRL - Respiratory Respiratory status: No respiratory distress Chest status: Nontender Breath sounds: Normal Chest palpation: Normal - Cardiovascular Rhythm: Regular Heart sounds: Normal auscultation Murmur: No - Abdominal Inspection: Normal Distension: No distension Bowel sounds: Normal Tenderness: Tender - Diffused mild tenderness to palpation. Organomegaly: No organomegaly - Back Back: Normal, Nontender - Extremities General upper extremity: Normal inspection, Nontender, Normal color, Normal ROM, Normal temperature General lower extremity: Normal inspection, Nontender, Normal color, Normal ROM, Normal temperature, Normal weight bearing. No: Pedro's sign - Neurological Neuro grossly intact: Yes Cognition: Normal Orientation: AAOx4 [place] Coma Scale Eye Opening: Spontaneous [place] Coma Scale Verbal: Oriented [place] Coma Scale Motor: Obeys Commands [place] Coma Scale Total: 15 Speech: Normal Motor strength normal: LUE, RUE, LLE, RLE Sensory: Normal - Psychological Associated symptoms: Normal affect, Normal mood - Skin Skin Temperature: Warm Skin Moisture: Dry Skin Color: Erythema - left lower extremity. Skin irregularity: Erythema Location of irregularity: Extremities - left lower. Course - Re-evaluation Re-evalutation: 05/10/18 17:43 On reevaluation patient now has redness on his face and forehead and on the left lower extremity consistent with cellulitis. - Vital Signs Vital signs: Temp Pulse Resp BP Pulse Ox 97.6 F 107 H 13 113/88 H 88 L 05/10/18 09:49 05/10/18 09:49 05/10/18 16:01 05/10/18 16:01 05/10/18 16:01 - Laboratory Result Diagrams: 05/10/18 11:54 05/10/18 11:54 Laboratory results interpreted by me: 05/10/18 05/10/18 05/10/18 11:54 15:00 15:20 Plt Count 116 L Lymphocytes % 12.6 L POC Glucose 63 L Urine Ketones TRACE H Urine Blood MODERATE H - Diagnostic Test Radiology reviewed: Reports reviewed - EKG Interpretation by Me EKG shows normal: Sinus rhythm Rate: Normal - 99 Rhythm: NSR [place]/QRS: Left axis deviation When compared to previous EKG there are: No significant change Additional EKG results interpreted by me: 05/10/18 12:28 No significant change from prior EKG on 05/07/2017. No STEMI. - Transfer of Care Notes: 05/10/18 17:43 Patient will be admitted by the hospitalist Dr. Cruz for further evaluation and management. Discharge - Discharge Clinical Impression: Cellulitis Qualifiers: Site of cellulitis: unspecified site Qualified Code(s): L03.90 - Cellulitis, unspecified Abdominal pain Qualifiers: Abdominal location: generalized Qualified Code(s): R10.84 - Generalized abdominal pain Condition: Stable Disposition: ADMITTED INPATIENT Admitting Provider: Hospitalist Unit Admitted: Medical Floor
[2018-05-10 12:23] LABS: ABSOLUTE LYMPHOCYTES (AUTO) 1.1 10^3/uL (0.5-4.7); ABSOLUTE MONOCYTES (AUTO) 0.9 10^3/uL (0.1-1.4); BASOPHILS % (AUTO) 0.3 % (0-2); EOSINOPHILS % (AUTO) 0.1 % (0-6); HEMATOCRIT 40.2 % (37.9-51.0); HEMOGLOBIN 13.7 g/dL (13.5-17.0); LYMPHOCYTES % (AUTO) 12.6 % (13-45); MEAN CORPUSCULAR HEMOGLOBIN 30.9 pg (27.0-33.4); MEAN CORPUSCULAR HGB CONC 34.1 g/dL (32.0-36.0); MEAN CORPUSCULAR VOLUME 91 fl (80-97); MONOCYTES % (AUTO) 10.1 % (3-13); PLATELET COUNT 116 10^3/uL (150-450); RED BLOOD COUNT 4.43 10^6/uL (4.35-5.55); RED CELL DISTRIBUTION WIDTH 13.5 % (11.5-14.0); SEGMENTED NEUTROPHILS % (AUTO) 76.9 % (42-78); TOTAL CELLS COUNTED % (AUTO) 100 %
[2018-05-10 12:25] LABS: VENOUS BLOOD BASE EXCESS -2.5 mmol/L; VENOUS BLOOD HCO3 23.2 mmol/L (20-32); VENOUS BLOOD PCO2 43.2 mmHg (35-63); VENOUS BLOOD PH 7.35 (7.30-7.42)
[2018-05-10 12:30] LABS: INTERNATIONAL RATION (INR) 1.04; PROTHROMBIN TIME 14.1 SEC (11.4-15.4)
[2018-05-10 12:31] LABS: PARTIAL THROMBOPLASTIN TIME 28.9 SEC (23.5-35.8)
[2018-05-10 12:44] LABS: ALANINE AMINOTRANSFERASE 29 U/L (21-72); ALBUMIN 4.5 g/dL (3.5-5.0); ALKALINE PHOSPHATASE 53 U/L (38-126); ANION GAP 10 (5-19); ASPARTATE AMINO TRANSFERASE 39 U/L (17-59); BILIRUBIN,DIRECT 0.1 mg/dL (0.0-0.4); BILIRUBIN,TOTAL 0.3 mg/dL (0.2-1.3); BLOOD UREA NITROGEN 12 mg/dL (7-20); CALCIUM 9.8 mg/dL (8.4-10.2); CARBON DIOXIDE 26 mmol/L (22-30); CHLORIDE 103 mmol/L (98-107); GLUCOSE 85 mg/dL (75-110); POTASSIUM 3.8 mmol/L (3.6-5.0); SODIUM 138.8 mmol/L (137-145); TOTAL PROTEIN 7.7 g/dL (6.3-8.2)
--- NOTE | 2018-05-10 15:22 | RADIOLOGY REPORT (SQ) ---
EXAM DESCRIPTION: CT ABD/PELVIS WITH IV ORAL COMPLETED DATE/TIME: 05/10/2018 2:58 pm REASON FOR STUDY: Diffused abdominal pain COMPARISON: None. TECHNIQUE: CT scan of the abdomen and pelvis performed with intravenous and oral contrast using gino belinda scanning technique with dynamic intravenous contrast injection. Images reviewed with lung, soft t issue, and bone windows. Reconstructed coronal and sagittal MPR images reviewed. Delayed images for e valuation of the urinary system also acquired. All images stored on PACS. All CT scanners at this facility use dose modulation, iterative reconstruction, and/or weight based d osing when appropriate to reduce radiation dose to as low as reasonably achievable (ALARA). [facility]: Dose Right [facility]: CareDose [facility]: Dose Right [facility]: Teradose 4D [facility]: [employer] CONTRAST TYPE AND DOSE: contrast/concentration: Isovue 350.00 mg/ml; Total Contrast Delivered: 89.0 ml; Total Saline Delivered: 43.0 ml RENAL FUNCTION: GFR > 60. RADIATION DOSE: CT Rad equipment meets quality standard of care and radiation dose reduction techniq ues were employed. CTDIvol: 7.5 - 10.3 mGy. DLP: 999 mGy-cm. . LIMITATIONS: None. FINDINGS: LOWER CHEST: No significant findings. No nodules or infiltrates. LIVER: Mild periportal edema. 8 mm nodule in the epicardial fat abutting the dome of the liver image 12 series 3, image 25 series 601. No liver mass identified. No biliary dilatation. SPLEEN: Normal size. No focal lesions. PANCREAS: No masses. No significant calcifications. No adjacent inflammation or peripancreatic fluid collections. Pancreatic duct not dilated. GALLBLADDER: No identified stones by CT criteria. No inflammatory changes to suggest cholecystitis. ADRENAL GLANDS: No significant masses or asymmetry. RIGHT KIDNEY AND URETER: No solid masses. No significant calcifications. No hydronephrosis or hyd roureter. LEFT KIDNEY AND URETER: No solid masses. No significant calcifications. No hydronephrosis or hydr oureter. AORTA AND VESSELS: No aneurysm. No dissection. Renal arteries, SMA, celiac without stenosis. RETROPERITONEUM: No retroperitoneal adenopathy, hemorrhage or masses. BOWEL AND PERITONEAL CAVITY: No obstruction. No visualized masses. No free fluid. No inflammatory ch anges or thickening of bowel wall. APPENDIX: Normal. PELVIS: No significant masses. Normal bladder. No free fluid. ABDOMINAL WALL: No masses. No hernias. BONES: No significant or acute findings. OTHER: No other significant finding. IMPRESSION: Subtle periportal edema without evidence of liver mass. Small nodule in the adjacent ep icardial fat probably a lymph node. Correlation with LFTs is recommended. TECHNICAL DOCUMENTATION: JOB ID: [id number] Quality ID # [id number]: Final reports with documentation of one or more dose reduction techniques (e.g., Au tomated exposure control, adjustment of the mA and/or kV according to patient size, use of iterative reconstruction technique) 2010 [employer]- All Rights Reserved Reading location - IP/workstation name: [email or web address]
[2018-05-10 15:23] LABS: APPEARANCE,URINE CLEAR; BILIRUBIN,URINE NEGATIVE (NEGATIVE); COLOR,URINE STRAW; GLUCOSE, URINE NEGATIVE (NEGATIVE); KETONES,URINE TRACE mg/dL (NEGATIVE); LEUKOCYTE ESTERASE,URINE NEGATIVE (NEGATIVE); NITRITE,URINE NEGATIVE (NEGATIVE); PROTEIN,URINE NEGATIVE (NEGATIVE); URINE SPECIFIC GRAVITY 1.004; UROBILINOGEN,URINE NEGATIVE mg/dL (<2.0)
[2018-05-10] MEDS ORDERED: KETOROLAC TROMETHAMINE INJ/PF 30 MG/1 ML SDV IV ONE (16:17)
[2018-05-10 16:19] LABS: CREATINE KINASE MB 1.47 ng/mL (<4.55)
--- NOTE | 2018-05-10 16:21 | EKG REPORT ---
SEVERITY:- BORDERLINE ECG - SINUS RHYTHM LEFT AXIS DEVIATION BORDERLINE T ABNORMALITIES, ANT-LAT LEADS : Confirmed by: Robby Dudley MD 10-May-2018 16:21:17
[2018-05-10 16:24] LABS: TROPONIN I < 0.012 ng/mL
[2018-05-10] MEDS ORDERED: PIPERACILLIN/TAZOBACTAM 3.375 GM VIAL IV ONE (17:25)
[2018-05-10] MEDS ORDERED: VANCOMYCIN HCL INJ 1000 MG VIAL IV ONE (17:26)
[2018-05-10] MEDS ORDERED: ONDANSETRON HCL INJ/PF 4 MG/2 ML SDV IV PRN (17:58)
--- NOTE | 2018-05-10 17:58 | PDOC H&P ---
History of Present Illness Admission Date/PCP: 05/10/18 17:42 History of Present Illness: CHAD FREY is a 37 year old male patient who is mentally challenged, deaf and mute, brought by his neck band operator with chief complaint of abdominal pain and erythema involving the bilateral legs and groin area. Patient has history of recurrent cellulitis and his last attack was in November 2017 for which admitted to this hospital. Patient has history of chronic constipation and intermittent hypoglycemia and reaction to simple carbohydrates. There is no report of fever, nausea, vomiting, chest pain, palpitation or diaphoresis. No diarrhea or urinary complaints. Further detailed history and review of systems unobtainable. And his blood work is unremarkable. Past Medical History Cardiac Medical History: Denies: Congestive Heart Failure, Myocardial Infarction, Hyperlipidema, Hypertension Pulmonary Medical History: Denies: Asthma, Bronchitis, Chronic Obstructive Pulmonary Disease (COPD), Pneumonia, Tuberculosis Neurological Medical History: Denies: Seizures Endocrine Medical History: Denies: Diabetes Mellitus Type 1, Diabetes Mellitus Type 2 GI Medical History: Denies: Cirrhosis, Gastroesophageal Reflux Disease, Hepatitis Musculoskeltal Medical History: Reports: Arthritis - BEING EVALUATED Psychiatric Medical History: Reports: Depression Hematology: Denies: Anemia Infectious Medical History: Denies: Clostridium Difficile, Methicillin-Resistant Staph Aureus Past Surgical History Past Surgical History: Denies: Pacemaker Social History Smoking Status: Never Smoker Frequency of Alcohol Use: None Hx Recreational Drug Use: No Drugs: None Hx Prescription Drug Abuse: No - Advance Directive Resuscitation Status: Full Code Family History Family History: CAD, DM, Hypertension Parental Family History Reviewed: Yes Children Family History Reviewed: Yes Sibling(s) Family History Reviewed.: Yes Medication/Allergy Home Medications: Clomipramine HCl 25 mg PO QHS 12/21/17 Diazoxide [Proglycem 50 mg/ml Susp] 0.75 ml PO BID 12/21/17 Divalproex Sodium [Divalproex Sodium ER] 1,000 mg PO QHS 12/21/17 Divalproex Sodium [Divalproex Sodium ER] 500 mg PO DAILY 12/21/17 [place] Carbonate 450 mg PO BID 12/21/17 Quetiapine Fumarate [Seroquel Xr] 800 mg PO QHS 12/21/17 Acetaminophen [Tylenol 325 mg Tablet] 650 mg PO Q6HP PRN #30 tablet 12/22/17 Sulfamethoxazole/Trimethoprim [Septra-Ds 800-160 mg Tablet] 2 tab PO Q12 10 Days #40 tablet 12/25/17 Cephalexin Monohydrate [Keflex 500 mg Capsule] 500 mg PO BID 7 Days #14 capsule 02/07/18 Sulfamethoxazole/Trimethoprim [Bactrim Ds Tablet] 1 each PO BID 7 Days #14 tablet 02/07/18 Sulfamethoxazole/Trimethoprim [Septra-Ds 800-160 mg Tablet] 1 tab PO BID 7 Days tablet 02/07/18 Allergies/Adverse Reactions: haloperidol [From Haldol] Allergy (Verified 05/10/18 11:43) Generalized rash Review of Systems ROS unobtainable: Due to mental status Physical Exam Vital Signs: Temp Pulse Resp BP Pulse Ox 97.6 F 107 H 13 113/88 H 88 L 05/10/18 09:49 05/10/18 09:49 05/10/18 16:01 05/10/18 16:01 05/10/18 16:01 Intake & Output 05/09/18 05/10/18 05/11/18 06:59 06:59 06:59 Intake Total 1000 Balance 1000 Weight 78.1 kg General appearance: PRESENT: no acute distress Head exam: PRESENT: atraumatic, normocephalic Eye exam: PRESENT: conjunctiva pink Neck exam: ABSENT: carotid bruit, JVD, lymphadenopathy, thyromegaly Respiratory exam: PRESENT: clear to auscultation willard. ABSENT: rales, rhonchi, wheezes Cardiovascular exam: PRESENT: RRR. ABSENT: diastolic murmur, rubs, systolic murmur Results Laboratory Results: 05/10/18 11:54 05/10/18 11:54 05/10/18 05/10/18 05/10/18 11:54 11:54 11:54 WBC 9.0 RBC 4.43 Hgb 13.7 Hct 40.2 MCV 91 MCH 30.9 MCHC 34.1 RDW 13.5 Plt Count 116 L Seg Neutrophils % 76.9 Lymphocytes % 12.6 L Monocytes % 10.1 Eosinophils % 0.1 Basophils % 0.3 Absolute Neutrophils 7.0 Absolute Lymphocytes 1.1 Absolute Monocytes 0.9 Absolute Eosinophils 0.0 Absolute Basophils 0.0 VBG pH VBG pCO2 VBG HCO3 VBG Base Excess Sodium 138.8 Potassium 3.8 Chloride 103 Carbon Dioxide 26 Anion Gap 10 BUN 12 Creatinine 0.76 Est GFR ( Amer) > 60 Est GFR (Non-Af Amer) > 60 Glucose 85 Lactic Acid 1.0 Calcium 9.8 Total Bilirubin 0.3 AST 39 ALT 29 Alkaline Phosphatase 53 Total Protein 7.7 Albumin 4.5 Urine Color Urine Appearance Urine pH Ur Specific [place] Urine Protein Urine Glucose (UA) Urine Ketones Urine Blood Urine Nitrite Ur Leukocyte Esterase Urine WBC (Auto) Urine RBC (Auto) 05/10/18 05/10/18 11:54 15:00 WBC RBC Hgb Hct MCV MCH MCHC RDW Plt Count Seg Neutrophils % Lymphocytes % Monocytes % Eosinophils % Basophils % Absolute Neutrophils Absolute Lymphocytes Absolute Monocytes Absolute Eosinophils Absolute Basophils VBG pH 7.35 VBG pCO2 43.2 VBG HCO3 23.2 VBG Base Excess -2.5 Sodium Potassium Chloride Carbon Dioxide Anion Gap BUN Creatinine Est GFR ( Amer) Est GFR (Non-Af Amer) Glucose Lactic Acid Calcium Total Bilirubin AST ALT Alkaline Phosphatase Total Protein Albumin Urine Color STRAW Urine Appearance CLEAR Urine pH 7.0 Ur Specific [place] 1.004 Urine Protein NEGATIVE Urine Glucose (UA) NEGATIVE Urine Ketones TRACE H Urine Blood MODERATE H Urine Nitrite NEGATIVE Ur Leukocyte Esterase NEGATIVE Urine WBC (Auto) 1 Urine RBC (Auto) 2 05/10/18 05/10/18 11:54 11:54 Creatine Kinase 163 CK-MB (CK-2) 1.47 Troponin I < 0.012 Impressions: Abdomen/Pelvis CT 05/10/18 11:49 IMPRESSION: Subtle periportal edema without evidence of liver mass. Small nodule in the adjacent epicardial fat probably a lymph node. Correlation with LFTs is recommended. Assessment & Plan - Diagnosis (1) Cellulitis Is this a current diagnosis for this admission?: Yes Plan: Patient has history of recurrent cellulitis. Empirically I will start him on clindamycin. (2) Chronic constipation Is this a current diagnosis for this admission?: Yes Plan: We will put him on stool softener (3) Mentally challenged Is this a current diagnosis for this admission?: Yes Plan: Stable
[2018-05-10] MEDS ORDERED: DIAZOXIDE PO SCH (19:45)
[2018-05-10] MEDS: CLINDAMYCIN 600 MG/D5W RTU 600 MG/50 ML RTUPB IV SCH (19:48)
[2018-05-10] MEDS: OXYCODONE-ACETAMINOPHEN 5-325 MG TABLET PO PRN (19:49)
[2018-05-10] MEDS: ENOXAPARIN SODIUM INJ 40 MG/0.4 ML DISP.SYRIN SUBCUT SCH (20:02)
[2018-05-10] MEDS ORDERED: DIAZOXIDE 50 MG/ML PO ONE (21:00)
[2018-05-10] MEDS: CLOMIPRAMINE HCL 25 MG PO SCH (21:25)
[2018-05-10] MEDS: QUETIAPINE FUMARATE 100 MG TABLET PO SCH (21:25)
[2018-05-10] MEDS: FAMOTIDINE 20 MG TABLET PO SCH (21:25)
[2018-05-10] MEDS: DIVALPROEX SODIUM 500 MG TAB.SR.24H PO SCH (21:25)
[2018-05-10] MEDS: LITHIUM CARBONATE 450 MG TABLET.ER PO SCH (21:26)
[2018-05-10] MEDS ORDERED: (PENDING PHARMACY ID) (Quetiapine Fumarate [Seroquel] 800 MG) PO SCH (22:00)
[2018-05-10] MEDS ORDERED: CLOMIPRAMINE HCL 25 MG PO SCH (22:00)
[2018-05-11] MEDS: CLINDAMYCIN 600 MG/D5W RTU 600 MG/50 ML RTUPB IV SCH ×3 (03:01→18:32)
[2018-05-11 07:46] LABS: ABSOLUTE EOSINOPHILS # (AUTO) 0.1 10^3/uL (0.0-0.6); ABSOLUTE LYMPHOCYTES (AUTO) 1.3 10^3/uL (0.5-4.7); ABSOLUTE MONOCYTES (AUTO) 0.9 10^3/uL (0.1-1.4); ABSOLUTE NEUT (AUTO) 5.4 10^3/uL (1.7-8.2); BASOPHILS % (AUTO) 0.2 % (0-2); EOSINOPHILS % (AUTO) 0.7 % (0-6); HEMATOCRIT 35.7 % (37.9-51.0); HEMOGLOBIN 12.2 g/dL (13.5-17.0); LYMPHOCYTES % (AUTO) 17.2 % (13-45); MEAN CORPUSCULAR HEMOGLOBIN 30.7 pg (27.0-33.4); MEAN CORPUSCULAR HGB CONC 34.2 g/dL (32.0-36.0); MEAN CORPUSCULAR VOLUME 90 fl (80-97); MONOCYTES % (AUTO) 11.5 % (3-13); RED BLOOD COUNT 3.97 10^6/uL (4.35-5.55); RED CELL DISTRIBUTION WIDTH 13.4 % (11.5-14.0); SEGMENTED NEUTROPHILS % (AUTO) 70.4 % (42-78); TOTAL CELLS COUNTED % (AUTO) 100 %; WHITE BLOOD COUNT 7.7 10^3/uL (4.0-10.5)
[2018-05-11 08:00] LABS: ANION GAP 9 (5-19); BLOOD UREA NITROGEN 17 mg/dL (7-20); CALCIUM 8.7 mg/dL (8.4-10.2); CARBON DIOXIDE 23 mmol/L (22-30); CHLORIDE 108 mmol/L (98-107); GLUCOSE 82 mg/dL (75-110); SODIUM 139.6 mmol/L (137-145)
[2018-05-11 08:23] LABS: PLATELET COUNT 98 10^3/uL (150-450)
--- NOTE | 2018-05-11 10:45 | PDOC PROGRESS REPORT ---
Subjective Progress Note for:: 05/11/18 Subjective:: NADYA FREY is a 37 year old male patient who is mentally challenged, deaf and mute, brought by his outcomes manager with chief complaint of abdominal pain and erythema involving the bilateral legs and groin area. Patient has history of recurrent cellulitis. He has been started on clindamycin. This morning the erythema and swelling on both legs seems subsiding. Patient seen sitting up in bed. He is awake alert. Reason For Visit: DIFFUSE CELLULITIS Physical Exam Vital Signs: Temp Pulse Resp BP Pulse Ox 97.3 F 79 15 105/59 L 96 05/11/18 04:00 05/11/18 07:00 05/11/18 04:00 05/11/18 04:00 05/11/18 04:00 Intake & Output 05/10/18 05/11/18 05/12/18 06:59 06:59 06:59 Intake Total 1522 Output Total 600 Balance 922 Weight 80.6 kg General appearance: PRESENT: no acute distress Head exam: PRESENT: atraumatic Eye exam: PRESENT: conjunctiva pink Mouth exam: PRESENT: moist Neck exam: ABSENT: carotid bruit, JVD, lymphadenopathy, thyromegaly Respiratory exam: PRESENT: clear to auscultation willard. ABSENT: rales, rhonchi, wheezes Cardiovascular exam: PRESENT: RRR. ABSENT: diastolic murmur, rubs, systolic murmur GI/Abdominal exam: PRESENT: normal bowel sounds, soft. ABSENT: distended, guarding, mass, organolmegaly, rebound, tenderness Neurological exam: PRESENT: alert, awake Results Laboratory Results: 05/11/18 06:30 05/11/18 06:30 05/10/18 05/10/18 05/10/18 11:54 11:54 11:54 WBC 9.0 RBC 4.43 Hgb 13.7 Hct 40.2 MCV 91 MCH 30.9 MCHC 34.1 RDW 13.5 Plt Count 116 L Seg Neutrophils % 76.9 Lymphocytes % 12.6 L Monocytes % 10.1 Eosinophils % 0.1 Basophils % 0.3 Absolute Neutrophils 7.0 Absolute Lymphocytes 1.1 Absolute Monocytes 0.9 Absolute Eosinophils 0.0 Absolute Basophils 0.0 VBG pH VBG pCO2 VBG HCO3 VBG Base Excess Sodium 138.8 Potassium 3.8 Chloride 103 Carbon Dioxide 26 Anion Gap 10 BUN 12 Creatinine 0.76 Est GFR ( Amer) > 60 Est GFR (Non-Af Amer) > 60 Glucose 85 Lactic Acid 1.0 Calcium 9.8 Total Bilirubin 0.3 AST 39 ALT 29 Alkaline Phosphatase 53 Total Protein 7.7 Albumin 4.5 Urine Color Urine Appearance Urine pH Ur Specific [place] Urine Protein Urine Glucose (UA) Urine Ketones Urine Blood Urine Nitrite Ur Leukocyte Esterase Urine WBC (Auto) Urine RBC (Auto) 05/10/18 05/10/18 05/11/18 11:54 15:00 06:30 WBC 7.7 RBC 3.97 L Hgb 12.2 L Hct 35.7 L MCV 90 MCH 30.7 MCHC 34.2 RDW 13.4 Plt Count 98 L Seg Neutrophils % 70.4 Lymphocytes % 17.2 Monocytes % 11.5 Eosinophils % 0.7 Basophils % 0.2 Absolute Neutrophils 5.4 Absolute Lymphocytes 1.3 Absolute Monocytes 0.9 Absolute Eosinophils 0.1 Absolute Basophils 0.0 VBG pH 7.35 VBG pCO2 43.2 VBG HCO3 23.2 VBG Base Excess -2.5 Sodium Potassium Chloride Carbon Dioxide Anion Gap BUN Creatinine Est GFR ( Amer) Est GFR (Non-Af Amer) Glucose Lactic Acid Calcium Total Bilirubin AST ALT Alkaline Phosphatase Total Protein Albumin Urine Color STRAW Urine Appearance CLEAR Urine pH 7.0 Ur Specific [place] 1.004 Urine Protein NEGATIVE Urine Glucose (UA) NEGATIVE Urine Ketones TRACE H Urine Blood MODERATE H Urine Nitrite NEGATIVE Ur Leukocyte Esterase NEGATIVE Urine WBC (Auto) 1 Urine RBC (Auto) 2 05/11/18 06:30 WBC RBC Hgb Hct MCV MCH MCHC RDW Plt Count Seg Neutrophils % Lymphocytes % Monocytes % Eosinophils % Basophils % Absolute Neutrophils Absolute Lymphocytes Absolute Monocytes Absolute Eosinophils Absolute Basophils VBG pH VBG pCO2 VBG HCO3 VBG Base Excess Sodium 139.6 Potassium 4.0 Chloride 108 H Carbon Dioxide 23 Anion Gap 9 BUN 17 Creatinine 0.53 Est GFR ( Amer) > 60 Est GFR (Non-Af Amer) > 60 Glucose 82 Lactic Acid Calcium 8.7 Total Bilirubin AST ALT Alkaline Phosphatase Total Protein Albumin Urine Color Urine Appearance Urine pH Ur Specific [place] Urine Protein Urine Glucose (UA) Urine Ketones Urine Blood Urine Nitrite Ur Leukocyte Esterase Urine WBC (Auto) Urine RBC (Auto) 05/10/18 05/10/18 11:54 11:54 Creatine Kinase 163 CK-MB (CK-2) 1.47 Troponin I < 0.012 Impressions: Abdomen/Pelvis CT 05/10/18 11:49 IMPRESSION: Subtle periportal edema without evidence of liver mass. Small nodule in the adjacent epicardial fat probably a lymph node. Correlation with LFTs is recommended. Assessment & Plan - Diagnosis (1) Cellulitis Is this a current diagnosis for this admission?: Yes Plan: Continue clindamycin (2) Chronic constipation Is this a current diagnosis for this admission?: Yes Plan: On stool soft. (3) Mentally challenged Is this a current diagnosis for this admission?: Yes Plan: Stable
[2018-05-11] MEDS: DIVALPROEX SODIUM 500 MG TAB.SR.24H PO SCH ×2 (10:57→21:13)
[2018-05-11] MEDS: LITHIUM CARBONATE 450 MG TABLET.ER PO SCH ×2 (10:57→21:13)
[2018-05-11] MEDS: FAMOTIDINE 20 MG TABLET PO SCH ×2 (10:57→21:12)
[2018-05-11] MEDS: DIAZOXIDE 50 MG/ML PO SCH ×2 (10:58→18:29)
[2018-05-11] MEDS: ENOXAPARIN SODIUM INJ 40 MG/0.4 ML DISP.SYRIN SUBCUT SCH (11:28)
[2018-05-11] MEDS: CLOMIPRAMINE HCL 25 MG PO SCH (21:13)
[2018-05-11] MEDS: QUETIAPINE FUMARATE 100 MG TABLET PO SCH (21:13)
[2018-05-12] MEDS: CLINDAMYCIN 600 MG/D5W RTU 600 MG/50 ML RTUPB IV SCH ×3 (02:42→17:27)
[2018-05-12] MEDS: OXYCODONE-ACETAMINOPHEN 5-325 MG TABLET PO PRN (06:07)
[2018-05-12] MEDS: ENOXAPARIN SODIUM INJ 40 MG/0.4 ML DISP.SYRIN SUBCUT SCH (10:18)
[2018-05-12] MEDS: DIVALPROEX SODIUM 500 MG TAB.SR.24H PO SCH ×2 (10:22→21:22)
[2018-05-12] MEDS: DIAZOXIDE 50 MG/ML PO SCH ×2 (10:22→17:27)
[2018-05-12] MEDS: FAMOTIDINE 20 MG TABLET PO SCH ×2 (10:22→21:22)
[2018-05-12] MEDS: LITHIUM CARBONATE 450 MG TABLET.ER PO SCH ×2 (10:22→21:22)
--- NOTE | 2018-05-12 13:56 | PDOC PROGRESS REPORT ---
Subjective Progress Note for:: 05/12/18 Subjective:: I seen patient sitting in bed and enjoying his lunch.His awake and alert. He is not in pain or distress.I explained about his illness through blintze roller.He is potential discharge tomorrow if he remained stable. Reason For Visit: DIFFUSE CELLULITIS Physical Exam Vital Signs: Temp Pulse Resp BP Pulse Ox 97.1 F 88 16 123/69 95 05/12/18 08:42 05/12/18 07:45 05/12/18 07:45 05/12/18 07:45 05/12/18 07:45 Intake & Output 05/11/18 05/12/18 05/13/18 06:59 06:59 06:59 Intake Total 1522 2181 1734 Output Total 600 1000 1050 Balance 922 1181 684 Weight 80.6 kg 79.9 kg General appearance: PRESENT: no acute distress Eye exam: PRESENT: conjunctiva pink Teeth exam: PRESENT: poor dentation Neck exam: ABSENT: carotid bruit, JVD, lymphadenopathy, thyromegaly Respiratory exam: PRESENT: clear to auscultation [place]. ABSENT: rales, rhonchi, wheezes Cardiovascular exam: PRESENT: RRR. ABSENT: diastolic murmur, rubs, systolic murmur GI/Abdominal exam: PRESENT: normal bowel sounds, soft. ABSENT: distended, guarding, mass, organolmegaly, rebound, tenderness Neurological exam: PRESENT: alert, awake Results Laboratory Results: 05/11/18 06:30 05/11/18 06:30 05/10/18 15:00 Clean Catch Midstream Urine Culture - Final NO GROWTH 2 DAYS 05/10/18 05/10/18 11:54 11:54 Creatine Kinase 163 CK-MB (CK-2) 1.47 Troponin I < 0.012 Impressions: Abdomen/Pelvis CT 05/10/18 11:49 IMPRESSION: Subtle periportal edema without evidence of liver mass. Small nodule in the adjacent epicardial fat probably a lymph node. Correlation with LFTs is recommended. Assessment & Plan - Diagnosis (1) Cellulitis Is this a current diagnosis for this admission?: Yes Plan: Continue clindamycin (2) Chronic constipation Is this a current diagnosis for this admission?: Yes Plan: On stool soft. (3) Mentally challenged Is this a current diagnosis for this admission?: Yes Plan: Stable
[2018-05-12] MEDS: QUETIAPINE FUMARATE 100 MG TABLET PO SCH (21:22)
[2018-05-12] MEDS: CLOMIPRAMINE HCL 25 MG PO SCH (21:23)
[2018-05-13] MEDS: CLINDAMYCIN 600 MG/D5W RTU 600 MG/50 ML RTUPB IV SCH ×2 (03:07→09:16)
[2018-05-13 08:26] VITALS: BP 126/59
[2018-05-13] MEDS: FAMOTIDINE 20 MG TABLET PO SCH (09:17)
[2018-05-13] MEDS: DIAZOXIDE 50 MG/ML PO SCH (09:17)
[2018-05-13] MEDS: DIVALPROEX SODIUM 500 MG TAB.SR.24H PO SCH (09:17)
[2018-05-13] MEDS: LITHIUM CARBONATE 450 MG TABLET.ER PO SCH (09:17)
--- NOTE | 2018-05-13 09:17 | PDOC DISCHARGE SUMMARY ---
General - Admit/Disc Date/PCP Admission Date/Primary Care Provider: 05/10/18 17:42 Discharge Date: 05/13/18 - Discharge Diagnosis (1) Cellulitis Is this a current diagnosis for this admission?: Yes (2) Chronic constipation Is this a current diagnosis for this admission?: Yes (3) Mentally challenged Is this a current diagnosis for this admission?: Yes - Additional Information Resuscitation Status: Full Code Home Medications: Clomipramine HCl [Anafranil 25 mg Capsule] 25 mg PO QHS 05/10/18 Diazoxide [Proglycem 50 mg/ml Susp] 37.5 mg PO BID 05/10/18 Divalproex Sodium [Depakote ER 500 mg Tab.sr] 1,000 mg PO QHS 05/10/18 Divalproex Sodium [Depakote ER 500 mg Tab.sr] 500 mg PO DAILY 05/10/18 Upper [place] Carbonate [Upper [place] Carbonate ER 450 mg Tablet] 450 mg PO Q12 05/10/18 Quetiapine Fumarate [Seroquel] 800 mg PO QHS 05/10/18 History of Present Illness History of Present Illness: CHAD FREY is a 37 year old male patient who is mentally challenged, deaf and mute, 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 Patient has history of recurrent cellulitis and his last attack was in November 2017 for which admitted to this hospital. Patient has history of chronic constipation and intermittent hypoglycemia and reaction to simple carbohydrates. There is no report of fever, nausea, vomiting, chest pain, palpitation or diaphoresis. No diarrhea or urinary complaints. Further detailed history and review of systems unobtainable. And his blood work is unremarkable. 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 Patient has history of recurrent cellulitis. He has been started on clindamycin. The erythema and swelling has subsided on his both legs. Patient has been eating well tolerating well. Vital signs and blood works are within normal limits. Patient is stable enough to be discharged today. I will continue all his home medication and I will send him with clindamycin 300 mg 3 times a day for 5 days. Physical Exam Vital Signs: Temp Pulse Resp BP Pulse Ox 97.4 F 87 16 126/59 H 100 05/13/18 08:00 05/13/18 08:00 05/13/18 08:00 05/13/18 08:00 05/13/18 08:00 Intake & Output 05/12/18 05/13/18 05/14/18 06:59 06:59 06:59 Intake Total 2181 2366 Output Total 1000 3050 Balance 1181 -684 Weight 79.9 kg 79.8 kg General appearance: PRESENT: no acute distress Head exam: PRESENT: atraumatic Eye exam: PRESENT: conjunctiva pink Mouth exam: PRESENT: moist Neck exam: ABSENT: carotid bruit, JVD, lymphadenopathy, thyromegaly Respiratory exam: PRESENT: clear to auscultation willard. ABSENT: rales, rhonchi, w heezes Cardiovascular exam: PRESENT: RRR. ABSENT: diastolic murmur, rubs, systolic murmur Neurological exam: PRESENT: alert, awake Results Laboratory Results: 05/11/18 06:30 05/11/18 06:30 05/10/18 15:00 Clean Catch Midstream Urine Culture - Final NO GROWTH 2 DAYS 05/10/18 05/10/18 11:54 11:54 Creatine Kinase 163 CK-MB (CK-2) 1.47 Troponin I < 0.012 Impressions: Abdomen/Pelvis CT 05/10/18 11:49 IMPRESSION: Subtle periportal edema without evidence of liver mass. Small nodule in the adjacent epicardial fat probably a lymph node. Correlation with LFTs is recommended. Qualifiers - * PATIENT BEING DISCHARGED WITH ANY OF THE FOLLOWING DIAGNOSIS: No
[2018-05-13] MEDS: ENOXAPARIN SODIUM INJ 40 MG/0.4 ML DISP.SYRIN SUBCUT SCH (09:18)
== END 2018-05-13 13:10 | disposition home or self-care (01) | DRG 603 ==
LOC: ER 09:39 → EH 17:42 → 4W 19:05
PROVIDERS: ADMIT Internal Medicine; ATTEND Internal Medicine
DX: L03.116 Cellulitis of left lower limb (principal); F32.9 Major depressive disorder, single episode, unspecified; L03.115 Cellulitis of right lower limb; H91.3 Deaf nonspeaking, not elsewhere classified; K59.09 Other constipation; M19.90 Unspecified osteoarthritis, unspecified site; F99 Mental disorder, not otherwise specified; Z88.8 Allergy status to other drugs, medicaments and biological substances
CPT/HCPCS: 36415; 74177; 80048; 80053; 81001; 82550; 82553; 82803; 82962; 83605; 84484; 85025; 85610; 85730; 87040; 87077; 87086; 87186; 93005; 93010; 96361; 96374; 99285; J1885; J3490; J7030

== ENCOUNTER 2019-03-21 13:41 | Emergency (ER) | payer MEDICARE, MEDICAID ==
[2019-03-21] MEDS ORDERED: IBUPROFEN 600 MG TABLET PO ONE (14:39)
--- NOTE | 2019-03-21 14:40 | ER Document Report ---
ED Medical Screen (RME) - General Chief Complaint: Abdominal Pain Stated Complaint: LEFT SIDE PAIN/ABDOMINAL PAIN Time Seen by Provider: 03/21/19 14:33 Primary Care Provider: ARNEL WILLIS NP [Primary Care Provider] - Follow up as needed Mode of Arrival: Carried Information source: Patient Notes: 30-year-old male patient presented emergency department chief complaint of left- sided anterior rib pain. Patient reports he almost fell a few days ago but hit his ribs onto a small wall. He states pain is worse with deep breath. Sourcing Specialist is in the room. Point tenderness over the left anterior lower ribs, lung sounds clear and equal bilaterally. I have greeted and performed a rapid initial assessment of this patient. A comprehensive ED assessment and evaluation of the patient, analysis of test results and completion of the medical decision making process will be conducted by additional ED providers. I have specifically instructed the patient or family members with the patient to immediately return to any nursing staff should anything change in the patient's condition or with their chief complaint. TRAVEL OUTSIDE OF THE [place] IN LAST 30 DAYS: No - Related Data Allergies/Adverse Reactions: haloperidol [From Haldol] Allergy (Verified 03/21/19 14:20) Generalized rash Home Medications: mild mental retardation. explosive disorder. pervasive disorder. over reactive hypoglycemia. skips heartbeat Past Medical History - Social History Chew tobacco use (# tins/day): No Frequency of alcohol use: None Drug Abuse: None - Past Medical History Cardiac Medical History: Denies: Hx Congestive Heart Failure, Hx Heart Attack, Hx Hypercholesterolemia, Hx Hypertension Pulmonary Medical History: Denies: Hx Asthma, Hx Bronchitis, Hx COPD, Hx Pneumonia, Hx Tuberculosis Neurological Medical History: Denies: Hx Seizures Endocrine Medical History: Denies: Hx Diabetes Mellitus Type 1, Hx Diabetes Mellitus Type 2 Renal/ Medical History: Denies: Hx Peritoneal Dialysis GI Medical History: Denies: Hx Cirrhosis, Hx Gastroesophageal Reflux Disease, Hx Hepatitis Musculoskeltal Medical History: Reports Hx Arthritis - BEING EVALUATED Psychiatric Medical History: Reports: Hx Anxiety, Hx Depression Infectious Medical History: Denies: Hx C-Diff, Hx Hepatitis, Hx MRSA Past Surgical History: Denies: Hx Pacemaker - Immunizations Hx Diphtheria, Pertussis, Tetanus Vaccination: Yes Physical Exam - Vital signs Vitals: Temp Pulse Resp BP Pulse Ox 98.0 F 112 H 21 H 138/105 H 95 03/21/19 14:11 03/21/19 14:11 03/21/19 14:11 03/21/19 14:11 03/21/19 14:11 Course - Vital Signs Vital signs: Temp Pulse Resp BP Pulse Ox 98.0 F 112 H 21 H 138/105 H 95 03/21/19 14:11 03/21/19 14:11 03/21/19 14:11 03/21/19 14:11 03/21/19 14:11 Doctor's Discharge - Discharge Referrals: ARNEL WILLIS, IRRIGATION SERVICE TECHNICIAN [Primary Care Provider] - Follow up as needed
--- NOTE | 2019-03-21 15:28 | RADIOLOGY REPORT (SQ) ---
EXAM DESCRIPTION: RIBS LEFT W/PA CHEST COMPLETED DATE/TIME: 03/21/2019 3:15 pm REASON FOR STUDY: anterior rib pain COMPARISON: None. TECHNIQUE: A PA view of the chest in AP and oblique views of the left ribs were obtained. NUMBER OF VIEWS: Three views. LIMITATIONS: None. FINDINGS: FRONTAL CXR: Asymmetric patchy opacities in the inferior left hemithorax. There is no pne umothorax. The cardiomediastinal silhouette and pulmonary vasculature are within normal limits. RIBS: No displaced rib fractures. OTHER: No other finding. IMPRESSION: 1. Asymmetric patchy opacities in the inferior left hemithorax. Correlate clinically to exclude a pneumonia. 2. No displaced rib fractures. COMMENT: SITE OF TRAUMA/COMPLAINT MARKED/STAMP COMPLETED: NO. TECHNICAL DOCUMENTATION: JOB ID: [id number] [employer]- All Rights Reserved Reading location - IP/workstation name: [email or web address]
[2019-03-21] MEDS ORDERED: ACETAMINOPHEN 325 MG TABLET PO ONE (19:22)
--- NOTE | 2019-03-21 19:47 | ER Document Report ---
ED General - General Chief Complaint: Abdominal Pain Stated Complaint: LEFT SIDE PAIN/ABDOMINAL PAIN Time Seen by Provider: 03/21/19 14:33 Primary Care Provider: ARNEL WILLIS NP [Primary Care Provider] - Follow up in 3-5 days Information source: Patient, Friend - zoning administrator and career manager Notes: 38-year-old deaf male presents emergency department with his caregiver and zoning administrator with complaints of left-sided chest wall pain. Caregiver reports on Sunday he misstepped fell landed on a trash can. He reports he felt fine Sunday and but today he said he was hurting. He reports headache, difficulty breathing and increased pain with cough. Denies fever vomiting diarrhea. Caregiver reports patient is on chronic penicillin for the past 6 months due to left sided cellulitis. She reports he has been on penicillin for 3 months. Patient reports pain when he takes deep breath. TRAVEL OUTSIDE OF THE [place] 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 over reactive hypoglycemia. 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 Denies: Hx Diabetes Mellitus Type 1, Hx Diabetes Mellitus Type 2 Renal/ Medical History: Denies: Hx Peritoneal Dialysis GI Medical History: Denies: Hx Cirrhosis, Hx Gastroesophageal Reflux Disease, Hx Hepatitis Musculoskeletal Medical History: Reports Hx Arthritis - BEING EVALUATED Psychiatric Medical History: Reports: Hx Anxiety, Hx Depression Infectious Medical History: Denies: Hx C-Diff, Hx Hepatitis, Hx MRSA Past Surgical History: Reports: Other - Internal heart monitor for low heart rate. Denies: Hx Pacemaker - Immunizations Hx Diphtheria, Pertussis, Tetanus Vaccination: Yes Review of Systems - Review of Systems Notes: Review HPI for review of systems., All other systems negative Physical Exam - Vital signs Vitals: Temp Pulse Resp BP Pulse Ox 98.0 F 112 H 21 H 138/105 H 95 03/21/19 14:11 03/21/19 14:11 03/21/19 14:11 03/21/19 14:11 03/21/19 14:11 - Notes Notes: PHYSICAL EXAMINATION: GENERAL: Well-appearing and in no acute distress HEAD: Atraumatic, normocephalic. EYES: , sclera anicteric, conjunctiva are normal. ENT: nares patent, oropharynx clear without exudates. Moist mucous membranes. NECK: Normal range of motion, supple without lymphadenopathy LUNGS: CTAB and equal. No wheezes rales or rhonchi. No ecchymosis noted respiratory rate even unlabored HEART: Regular rate and rhythm without murmurs ABDOMEN: Soft, no tenderness. No guarding, no rebound EXTREMITIES: Normal range of motion, NEUROLOGICAL: Cranial nerves grossly intact. PSYCH: Normal mood, normal affect. SKIN: Warm, Dry, normal turgor, no rashes or lesions noted, no cellulitis noted - General General appearance: Alert In distress: None - HEENT Ears: Normal Course - Re-evaluation Re-evalutation: 03/21/19 19:45 Ribs w/Chest X-Ray 03/21/19 14:39 IMPRESSION: 1. Asymmetric patchy opacities in the inferior left hemithorax. Correlate clinically to exclude a pneumonia. 2. No displaced rib fractures. 03/21/19 Vital signs retaken no fever noted. Patient reports his headache is gone. Dr. martin consulted due to patient's chronic penicillin for his cellulitis and his recent pneumonia. Dr. martin agrees with plan of care to discharge patient with a Z-Jake. Patient was instructed on plan of care, treatment for pneumonia with Zithromax, with the help of the zoning administrator and caregiver. Incentive spirometer was also given to patient and instructed on the importance of cough deep breathe at least hourly. They were instructed to monitor his tem perature give Tylenol or Motrin as indicated and follow-up with primary care provider for recheck within the week. They verbalized understanding to all instructions. - Vital Signs Vital signs: Temp Pulse Resp BP Pulse Ox 97.7 F 109 H 18 141/71 H 96 03/21/19 19:47 03/21/19 19:47 03/21/19 19:47 03/21/19 19:47 03/21/19 19:47 - Diagnostic Test Radiology reviewed: Image reviewed, Reports reviewed Discharge - Discharge Clinical Impression: left rib injury, Pneumonia Condition: Stable Disposition: HOME, SELF-CARE Instructions: Azithromycin ([facility]), Pneumonia ([facility]), Rib Injuries and Fractures ([facility]) Additional Instructions: *You have been evaluated for rib pain, pneumonia *Take medication as prescribed *Cough and deep breathe at least once an hour *Monitor your temperature take Tylenol or Motrin as indicated *Follow up with a primary care provider within within 5 days for recheck *Return to ED for worsening condition, changes, needs, difficulty breathing fever, concerns *Return to ED if not better in 24 hours Prescriptions: Azithromycin [Zithromax 250 mg Tablet] 500 mg PO DAILY #6 tab Forms: Elevated Blood Pressure Referrals: ARNEL WILLIS NP [Primary Care Provider] - Follow up in 3-5 days
[2019-03-21 19:48] VITALS: BP 141/71
== END 2019-03-21 20:19 | disposition home or self-care (01) ==
LOC: ER 13:41
DX: S29.9XXA Unspecified injury of thorax, initial encounter (principal); J18.9 Pneumonia, unspecified organism; R07.89 Other chest pain; R10.9 Unspecified abdominal pain; R51 Headache; R05 Cough; W19.XXXA Unspecified fall, initial encounter; F70 Mild intellectual disabilities; F60.3 Borderline personality disorder; F84.9 Pervasive developmental disorder, unspecified; E16.2 Hypoglycemia, unspecified; Z79.899 Other long term (current) drug therapy; Z79.2 Long term (current) use of antibiotics
CPT/HCPCS: 99283; 82962; 71101; A9270 ×2

== ENCOUNTER → 2019-08-15 | Outpatient (CLI) | payer MEDICARE, MEDICAID ==
[2019-08-15 09:17] LABS: ABSOLUTE EOSINOPHILS # (AUTO) 0.1 10^3/uL (0.0-0.6); ABSOLUTE MONOCYTES (AUTO) 0.5 10^3/uL (0.1-1.4); ABSOLUTE NEUT (AUTO) 1.3 10^3/uL (1.7-8.2); BASOPHILS % (AUTO) 0.9 % (0-2); EOSINOPHILS % (AUTO) 1.6 % (0-6); HEMATOCRIT 41.7 % (37.9-51.0); HEMOGLOBIN 14.1 g/dL (13.5-17.0); LYMPHOCYTES % (AUTO) 61.4 % (13-45); MEAN CORPUSCULAR HEMOGLOBIN 31.2 pg (27.0-33.4); MEAN CORPUSCULAR HGB CONC 33.8 g/dL (32.0-36.0); MEAN CORPUSCULAR VOLUME 92 fl (80-97); MONOCYTES % (AUTO) 10.6 % (3-13); PLATELET COUNT 169 10^3/uL (150-450); RED BLOOD COUNT 4.51 10^6/uL (4.35-5.55); RED CELL DISTRIBUTION WIDTH 13.2 % (11.5-14.0); SEGMENTED NEUTROPHILS % (AUTO) 25.5 % (42-78); TOTAL CELLS COUNTED % (AUTO) 100 %
[2019-08-15 09:36] LABS: ALBUMIN 4.6 g/dL (3.5-5.0); ALKALINE PHOSPHATASE 52 U/L (38-126); ANION GAP 7 (5-19); ASPARTATE AMINO TRANSFERASE 24 U/L (17-59); BILIRUBIN,TOTAL 0.5 mg/dL (0.2-1.3); BLOOD UREA NITROGEN 19 mg/dL (7-20); CALCIUM 9.9 mg/dL (8.4-10.2); CARBON DIOXIDE 28 mmol/L (22-30); CHLORIDE 105 mmol/L (98-107); GLUCOSE 87 mg/dL (75-110); POTASSIUM 3.9 mmol/L (3.6-5.0); TOTAL PROTEIN 7.5 g/dL (6.3-8.2)
[2019-08-15 09:46] LABS: FREE T4 (FREE THYROXINE) 0.77 ng/dL (0.78-2.19)
[2019-08-15 10:00] LABS: THYROID STIMULATING HORMONE 7.39 uIU/mL (0.47-4.68)
[2019-08-17 11:54] LABS: INSULIN-LIKE GROWTH FACTOR I 114 ng/mL (83-233)
[2019-08-18 13:07] LABS: TESTOSTERONE FREE (DIRECT) 6.6 pg/mL (8.7-25.1)
== END ==
LOC: OD 07:10
PROVIDERS: ATTEND Internal Medicine Endocrinology, Diabetes & Metabolism
DX: E16.2 Hypoglycemia, unspecified (principal); E23.0 Hypopituitarism; E34.9 Endocrine disorder, unspecified; E23.7 Disorder of pituitary gland, unspecified; E29.1 Testicular hypofunction; Z79.899 Other long term (current) drug therapy
CPT/HCPCS: 36415; 80053; 82533; 83001; 83002; 83036; 84146; 84305; 84402; 84403; 84439; 84443; 85025